=== PATIENT | female | born 1970 | race Caucasian/White ===

== ENCOUNTER 2016-11-08 12:06 | Emergency (ER) | payer OTHER | END 2016-11-08 13:20 | disposition home or self-care (01) | LOC: D.ER 12:06 | DX: K04.7 Periapical abscess without sinus (principal); K02.9 Dental caries, unspecified; E11.9 Type 2 diabetes mellitus without complications ==

== ENCOUNTER 2017-05-18 00:09 | Emergency (ER) | payer OTHER ==
[2017-05-18 01:16] LABS: BASOPHILS 0.5 % (0-2); EOSINOPHILS 2.3 % (0-7); HEMATOCRIT 48.2 % (36.0-48.0); HEMOGLOBIN 17.4 g/dL (12-16); IMMATURE GRANULOCYTES 1.7 % (0-5); LYMPHOCYTES 31.3 % (15-50); MCH 33.9 pg (26.0-34.0); MCHC 36.1 g/dL (31.0-37.0); MEAN PLATELET VOLUME 11.1 fL (7.4-10.4); NEUTROPHILS 57.2 % (40-80); PLATELET COUNT 179 10x3/uL (130-400); RBC 5.13 10x6/uL (4.00-5.40); RDW 13.1 % (11.5-14.5); WBC 8.3 10x3/uL (4.8-10.8)
[2017-05-18 01:25] LABS: APPEARANCE CLEAR (CLEAR); BILIRUBIN NEGATIVE (NEGATIVE); COLOR STRAW (YELLOW); GLUCOSE 1000 mg/dL (NEGATIVE); KETONE NEGATIVE (NEGATIVE); LEUKOCYTE ESTERASE NEGATIVE (NEGATIVE); NITRITE NEGATIVE (NEGATIVE); PROTEIN NEGATIVE (NEGATIVE); SPECIFIC GRAVITY 1.015 (1.005-1.020); UROBILINOGEN NORMAL (NORMAL)
[2017-05-18 01:26] LABS: BACTERIA FEW /hpf (NONE SEEN); EPITHELIAL CELLS 0-5 /hpf (0-5); RED CELLS - URINE 0-5 /hpf (0-5); WHITE CELLS - URINE NSEEN /hpf (0-5)
[2017-05-18 01:35] LABS: ALBUMIN 3.5 g/dL (3.4-5.0); ALKALINE PHOSPHATASE 103 U/L (46-116); ALT (SGPT) 20 U/L (10-68); BILIRUBIN - TOTAL 0.17 mg/dL (0.2-1.3); CALC OSMOLALITY 284 mosm/kg (275-300); CALCIUM 7.9 mg/dL (8.5-10.1); CARBON DIOXIDE 21.8 mmol/L (21.0-32.0); CHLORIDE - SERUM 99 mmol/L (98-107); CREATININE - SERUM 0.8 mg/dL (0.6-1.3); LIPASE 108 U/L (73-393); POTASSIUM - SERUM 5.2 mmol/L (3.5-5.1); PROTEIN - SERUM 7.1 g/dL (6.4-8.2); SODIUM 131 mmol/L (136-145); UREA NITROGEN 20 mg/dL (7-18); eGFR NON AFRICAN AMERICAN 81 mL/min (90-120)
[2017-05-18 01:41] LABS: GLUCOSE 432 mg/dL (74-106)
== END 2017-05-18 02:38 | disposition home or self-care (01) ==
LOC: D.ER 00:09
PROVIDERS: Emergency Medicine
DX: E11.65 Type 2 diabetes mellitus with hyperglycemia (principal); F17.200 Nicotine dependence, unspecified, uncomplicated

== ENCOUNTER → 2017-05-27 16:14 | Outpatient (CLI) | payer OTHER | END | disposition home or self-care (01) | LOC: D.MAMMO 11:45 | DX: Z12.31 Encounter for screening mammogram for malignant neoplasm of breast (principal) ==

== ENCOUNTER → 2017-06-25 18:49 | Outpatient (CLI) | payer OTHER ==
[~2017-06-25 18:49] MED LIST: BACLOFEN10 MG PO; CYMBALTA30 MG PO; FARXIGA10 MG PO; GLIPIZIDE-METFO1 TA5 PO; GLUCOVANCE 5/501 TAB PO; IBUPROFEN800 MG PO; NEURONTIN 400400 MG PO; PRAVACHOL20 MG PO; PRECOSE25 MG PO; PROBIOTIC1 EAC1 PO; ULTRAM50 MG PO
[2017-06-26 10:22] VITALS: BMI 27.4
== END | disposition home or self-care (01) ==
LOC: D.MAMMO 14:00
DX: R92.8 Other abnormal and inconclusive findings on diagnostic imaging of breast (principal)

== ENCOUNTER 2017-06-26 08:12 | Day surgery (SDC) | payer OTHER ==
[~2017-06-26] VITALS: Ht 172.7 cm; Wt 81.6 kg
--- NOTE | ~2017-06-26 | OP ---
PATIENT NAME: SEJAL CHAIREZ MEDICAL RECORD: [id number] :66 LOCATION:D.[facility] ADMISSION DATE: SURGEON: SHERICE MENDEZ MD DATE OF OPERATION: 06/26/2017 PREOPERATIVE DIAGNOSIS: Symptomatic sebaceous cyst of the back. POSTOPERATIVE DIAGNOSIS: Symptomatic subcutaneous lipoma of the back. SURGEON: Sherice Mendez MD. MANAGER ENGINE: None. BLOOD LOSS: Minimal. ANESTHESIA: General. COMPLICATIONS: None. I saw the patient in the holding area. The examination was performed in the presence of a female nurse. The risks, possible complications, and alternatives to the procedure were explained to the patient. She elected to proceed. OPERATIVE COURSE: The patient was conveyed to the operating room electively on 06/26/2017. General anesthesia was induced by the anesthesia staff. She was positioned prone. The back was sterilely prepped and draped. I incised through the middle of the subcutaneous mass. I identified lipomatous tissue rather than cystic tissue. Blunt dissection was performed around the lipoma and it was extracted in several pieces. Surrounding connective tissue was excised in a piecemeal fashion in order to prevent the lipoma from recurring. Meticulous hemostasis was achieved with the electrocautery. The lipoma was 6 cm in diameter. After meticulous hemostasis had been achieved, I irrigated with hydrogen peroxide. I then instilled Crys into the wound for additional hemostasis. The subdermis was approximated with interrupted 3-0 Vicryls. The skin was closed with a running intracuticular 4-0 Vicryl. Dermabond was then applied. The patient was then extubated and conveyed to the post-anesthesia care unit where she was in a stable condition. TRANSINT:[id number] Voice Confirmation ID: [id number] DOCUMENT ID: [id number] SHERICE MNEDEZ MD CC: JH BENDER DO [id number] DICTATION DATE: 06/26/17 1509 FIELD APPLICATION ENGINEER: 06/26/17 1942 [facility] 06/26/17 [id number] [place] [address]
[2017-06-26 09:08] LABS: HEMATOCRIT 52.9 % (36.0-48.0); HEMOGLOBIN 19.3 g/dL (12-16); MCH 34.3 pg (26.0-34.0); MCHC 36.5 g/dL (31.0-37.0); MCV 94.1 fL (80.0-100.0); MEAN PLATELET VOLUME 10.8 fL (7.4-10.4); RBC 5.62 10x6/uL (4.00-5.40); RDW 13.8 % (11.5-14.5)
[2017-06-26 09:27] LABS: CALC OSMOLALITY 278 mosm/kg (275-300); CALCIUM 8.9 mg/dL (8.5-10.1); CARBON DIOXIDE 26.5 mmol/L (21.0-32.0); CHLORIDE - SERUM 100 mmol/L (98-107); CREATININE - SERUM 0.8 mg/dL (0.6-1.3); GLUCOSE 220 mg/dL (74-106); POTASSIUM - SERUM 4.5 mmol/L (3.5-5.1); SODIUM 135 mmol/L (136-145); UREA NITROGEN 17 mg/dL (7-18); eGFR NON AFRICAN AMERICAN 81 mL/min (90-120)
[2017-06-26 10:22] VITALS: BP 142/72; Ht 172.7 cm; Wt 81.6 kg
[2017-06-26 10:38] LABS: HCG URINE NEGATIVE (NEGATIVE)
--- NOTE | 2017-06-26 17:20 | NUR ---
IV DC WITH CATHER TIP INTACT,W/O REDNESS
== END 2017-06-26 17:30 | disposition home or self-care (01) ==
LOC: D.OPS 08:12 → D.PAN 11:15 → D.OPS 13:00 → D.PAN 13:00 → D.OPS 17:30
PROVIDERS: Anesthesiology; Surgery
DX: D17.1 Benign lipomatous neoplasm of skin and subcutaneous tissue of trunk (principal); F17.200 Nicotine dependence, unspecified, uncomplicated; E11.9 Type 2 diabetes mellitus without complications; Z01.812 Encounter for preprocedural laboratory examination

== ENCOUNTER 2017-06-28 01:12 | Emergency (ER) | payer OTHER ==
[2017-06-26 10:22] VITALS: BMI 27.4
== END 2017-06-28 02:33 | disposition home or self-care (01) ==
LOC: D.ER 01:12
DX: R11.10 Vomiting, unspecified (principal); R51 Headache; E11.9 Type 2 diabetes mellitus without complications; F17.200 Nicotine dependence, unspecified, uncomplicated

== ENCOUNTER 2017-06-30 20:26 | Emergency (ER) | payer OTHER ==
[2017-06-26 10:22] VITALS: BMI 27.4
== END 2017-06-30 21:14 | disposition home or self-care (01) ==
LOC: D.ER 20:26
DX: K12.0 Recurrent oral aphthae (principal); E11.9 Type 2 diabetes mellitus without complications; F17.200 Nicotine dependence, unspecified, uncomplicated

== ENCOUNTER → 2017-07-28 09:10 | Outpatient (CLI) | payer OTHER ==
[2017-06-26 10:22] VITALS: BMI 27.4
== END | disposition home or self-care (01) ==
LOC: D.US 09:10
DX: R92.8 Other abnormal and inconclusive findings on diagnostic imaging of breast (principal)

== ENCOUNTER → 2017-09-30 16:10 | Outpatient (CLI) | payer OTHER ==
[2017-06-26 10:22] VITALS: BMI 27.4
== END | disposition home or self-care (01) ==
LOC: D.CT 16:10
DX: G43.019 Migraine without aura, intractable, without status migrainosus (principal); G44.59 Other complicated headache syndrome

== ENCOUNTER 2017-10-18 17:10 | Emergency (ER) | payer OTHER ==
[2017-06-26 10:22] VITALS: BMI 27.4
[2017-10-18 18:55] LABS: BASOPHILS 0.4 % (0-2); EOSINOPHILS 0 % (0-7); HEMATOCRIT 49.8 % (36.0-48.0); IMMATURE GRANULOCYTES 1.2 % (0-5); LYMPHOCYTES 12.9 % (15-50); MCH 31.9 pg (26.0-34.0); MCHC 34.1 g/dL (31.0-37.0); MCV 93.4 fL (80.0-100.0); MEAN PLATELET VOLUME 10.2 fL (7.4-10.4); MONOCYTES 10.2 % (2-11); NEUTROPHILS 75.3 % (40-80); PLATELET COUNT 122 10x3/uL (130-400); RBC 5.33 10x6/uL (4.00-5.40); RDW 13.6 % (11.5-14.5); WBC 5.1 10x3/uL (4.8-10.8)
[2017-10-18 19:13] LABS: ALBUMIN 3.2 g/dL (3.4-5.0); ALKALINE PHOSPHATASE 95 U/L (46-116); ALT (SGPT) 16 U/L (10-68); BILIRUBIN - TOTAL 0.18 mg/dL (0.2-1.3); CALC OSMOLALITY 272 mosm/kg (275-300); CALCIUM 8.9 mg/dL (8.5-10.1); CARBON DIOXIDE 27.1 mmol/L (21.0-32.0); CHLORIDE - SERUM 100 mmol/L (98-107); CREATININE - SERUM 0.7 mg/dL (0.6-1.3); POTASSIUM - SERUM 4.3 mmol/L (3.5-5.1); SODIUM 135 mmol/L (136-145); UREA NITROGEN 11 mg/dL (7-18); eGFR NON AFRICAN AMERICAN > 90 mL/min (90-120)
[2017-10-18 19:17] LABS: GLUCOSE 165 mg/dL (74-106)
== END 2017-10-18 19:46 | disposition home or self-care (01) ==
LOC: D.ER 17:10
PROVIDERS: Emergency Medicine
DX: J11.1 Influenza due to unidentified influenza virus with other respiratory manifestations (principal); E11.9 Type 2 diabetes mellitus without complications; F17.200 Nicotine dependence, unspecified, uncomplicated

== ENCOUNTER → 2017-12-08 15:36 | Outpatient (CLI) | payer OTHER ==
[2017-06-26 10:22] VITALS: BMI 27.4
== END | disposition home or self-care (01) ==
LOC: D.US 12-07 16:00
DX: I73.89 Other specified peripheral vascular diseases (principal)

== ENCOUNTER → 2018-11-01 13:29 | Outpatient (CLI) | payer OTHER ==
[2017-06-26 10:22] VITALS: BMI 27.4
== END | disposition home or self-care (01) ==
LOC: D.CT 13:29
DX: R93.89 Abnormal findings on diagnostic imaging of other specified body structures (principal)

== ENCOUNTER 2018-12-23 22:16 | Inpatient (IN) | payer OTHER ==
[~2018-12-23] VITALS: Ht 172.7 cm; Wt 95.5 kg
--- NOTE | ~2018-12-23 | HEMODYNAMI ---
PATIENT:SEJAL CHAIREZ MEDICAL RECORD: [id number] : 66 LOCATION:[facility] D.2217 ADMISSION DATE: 12/24/18 Generatedon:12/27/20189:43 Patient name: SEJAL CHAIREZ Patient #: [id number] SSN: : 1970 Date of study: 12/27/2018 Page: Of Hemodynamic Procedure Report Patient Data Patient Demographics Procedure consent was obtained First Name: SEJAL Gender: Female Last Name: MIHAELA : 1970 Middle Initial: K Age: 48 year(s) Patient #: [id number] Race: Unknown Additional ID: [id number] Contact details [address]: [address] [place] [address] State: [place] City: [place] Zip code: [address] Admission Admission Data Admission Date: 12/24/2018 Admission Time: 0:25 Room #: D.2217 Procedure Procedure Types Cath Procedure Diagnostic Procedure LHC LH w/Coronaries Sedation Charges Moderate Sedation up to 15 minutes PCI Procedure Coronary Stent Coronary Stent Initial Procedure Description Procedure Date Procedure Date: 12/27/2018 Procedure Start Time: 9:23 Procedure End Time: 9:39 Procedure Staff Name Function Cedrick Hughes MD Performing Physician Julieth Bowman RT Monitor Marleni Camargo RT Scrub Kolby Moffett RN Nurse Procedure Data Cath Procedure Fluoroscopy Diagnostic fluoroscopy Total fluoroscopy Time: 3.8 time: 3.8 min min Diagnostic fluoroscopy Total fluoroscopy dose: 967 dose: 967 mGy mGy Contrast Material Contrast Material Type Amount (ml) Isovue 300 115 Entry Location Entry Primary Successful Side Size Upsize Upsize Entry Closure Grover ccessful Closure Location (Fr) 1 (Fr) 2 (Fr) Remarks Device Remarks Radial Right 6 Fr Mechanical artery Short Compression Estimated blood loss: 5 ml Diagnostic catheters Device Type Used For End Catheter Placement DIAGNOSTIC Walland 110cm 5 Multi-vessel Fr catheter ([id number]) Angiography Procedure Complications No complications Procedure Medications Medication Administration Route Dosage 0.9% NaCl 100 ml/hr Oxygen etCO2 Nasal cannula 2 l/min Heparin Flush Bag added to field 2 bags (1000units/500ml NS) Lidocaine 2% added to field 20 Radial Cocktail added to field 1 syringe (Verapomil 2mg/Nitro 400mcg/Heparin 1500units) Versed I.V. 0.5 mg Fentanyl I.V. 25 mcg Versed I.V. 0.5 mg Fentanyl I.V. 25 mcg Heparin Bolus I.V. 5000 units Integrilin (Bolus I.V. 8.5 ml 2mg/ml) Integrilin (Bolus wasted 1.5 ml 2mg/ml) Radial Cocktail I.A. 1 syringe (Verapomil 2mg/Nitro 400mcg/Heparin 1500units) Plavix P.O. 600 mg Hemodynamics Rest Heart Rate: 90 (bpm) Pressure Samples Time Site Value (mmHg) Purpose Heart Use Rate(bpm) 9:26 LV 107/6,17 Snapshot 72 Gradients Valve Time Site Site Mean SEP/DFP Peak To Heart Use 1 2 (mmHg) (sec/min) Peak Rate (mmHg) (bpm) Aortic 9:26 LV AO 73 Snapshots Pre Cath Intra NCS Post Cath Vital Signs Time Heart Resp SPO2 etCO2 NIBP (mmHg) Rhythm Pain Sedation Rate (ipm) (%) (mmHg) Status Level (bpm) 9:11:55 90 19 96 43.3 137/81(109) NSR 0 (11) 10(A) , No pain 9:16:07 74 11 94 43.3 137/75(105) NSR 0 (11) 10(A) , No pain 9:20:19 69 14 93 41.8 124/70(93) NSR 0 (11) 10(A) , No pain 9:24:29 71 11 93 41.8 124/67(94) NSR 0 (11) 9(A) , No pain 9:28:39 79 11 93 43.3 115/64(80) NSR 0 (11) 9(A) , No pain 9:32:46 80 11 91 42.6 109/65(87) NSR 0 (11) 9(A) , No pain 9:36:52 85 11 93 41 89/60(73) NSR 0 (11) 10(A) , No pain Medications Time Medication Route Dose Verified Delivered Reason Note s Effectiveness by by 9:14:05 0.9% NaCl 100 Kolby Kolby Per physician ml/hr Betina Moffett RN RN 9:14:14 Oxygen etCO2 2 l/min Kolby Kolby for low 02 sats Nasal Betina Moffett cannula RN RN 9:14:24 Heparin Flush added 2 bags Kolby Kolby used for Bag to Lorigan Loryuan procedure (1000units/500ml field RN RN NS) 9:14:33 Lidocaine 2% added 20ml Kolby Kolby for local to vial Lorigan Loryuan anesthetic field RN RN 9:14:44 Radial Cocktail added 1 Kolby Kolby used for (Verapomil to syringe Lorigan Lorigan procedure 2mg/Nitro field RN RN 400mcg/Heparin 1500units) 9:15:00 Versed I.V. 0.5 mg Kolby Kolby for sedation Betina Moffett RN RN 9:15:08 Fentanyl I.V. 25 mcg Kolby Kolby for sedation Betina Moffett RN RN 9:23:10 Versed I.V. 0.5 mg Kolby Kolby for sedation Betina Moffett RN RN 9:23:15 Fentanyl I.V. 25 mcg Kolby Kolby for sedation Betina Moffett RN RN 9:25:11 Radial Cocktail I.A. 1 Kolby Cedrick for (Verapomil syringe Lorigan Ellen vasodilation 2mg/Nitro RN 400mcg/Heparin 1500units) 9:34:11 Heparin Bolus I.V. 5000 Kolby Kolby for units Betina Moffett anticoagulation RN RN 9:34:29 Integrilin I.V. 8.5 ml Kolby Kolby for (Bolus 2mg/ml) Betina Moffett antiplatelet RN RN therapy 9:34:42 Integrilin wasted 1.5 ml Kolby Kolby to sharp's (Bolus 2mg/ml) Betina Moffett RN RN 9:39:50 Plavix P.O. 600 mg Kolby Kolby for Betina Moffett antiplatelet RN RN therapy Procedure Log Time Note 8:36:38 Informed consent obtained and on chart 8:36:44 Diagnostic Cath Status : Elective 8:37:37 Kolby Moffett RN sent for patient. Start room use. 8:37:38 Time tracking: Regular hours (M-F 7:00 - 5:00) 8:37:43 Plan of Care:Hemodynamics will remain stable., Cardiac rhythm will remain stable., Comfort level will be maintained., Respiratory function will remain adequate., Patient/ family verbilizes understanding of procedure., Procedure tolerated without complication., Recovers from procedure without complications.. 9:10:46 Patient received from Med/Surg to CCL 2 Alert and oriented. Tansferred to table in Supine position. 9:10:47 Warm blankets applied, and jose hugger turned on for patient comfort. 9:10:47 Correct patient and procedure confirmed by team. 9:10:48 ECG and BP/O2 sat monitors applied to patient. 9:10:50 Vital chart was started 9:10:52 Baseline sample Acquired. 9:10:56 Rhythm: sinus rhythm 9:10:58 Full Disclosure recording started 9:11:01 H&P Date Dictated: 12/27/2018 New H&P dictated by physician.. 9:11:02 Pre-procedure instructions explained to patient. 9:11:03 Pre-op teaching completed and patient verbalized understanding. 9:11:04 Family in waiting room. 9:11:05 Patient NPO since Midnight. 9:11:10 Is the patient allergic to Iodine/contrast media? No. 9:11:11 Was the patient premedicated? No 9:12:36 Is patient on blood thinner?No 9:12:37 Patient diabetic? Yes. 9:12:38 If diabetic: On Metformin? No 9:12:41 Previous problem with sedation/anesthesia? No ? 9:12:42 Snore? No 9:12:43 Sleep apnea? No 9:12:44 Deviated septum? No 9:12:45 Opens mouth fully? Yes 9:12:46 Sticks out tongue? Yes 9:12:50 Airway obstruction? Yes asthma 9:12:52 Dentures? No ? 9:13:01 Pre procedure: right dorsailis pedis pulse 2+ Normal; easily identifiable; not easily obliterated 9:13:04 Pre procedure: left dorsailis pedis pulse 2+ Normal; easily identifiable; not easily obliterated 9:13:08 Patient pain scale 0/10 ?. 9:13:10 Modified Blaine's test Radial < 7 seconds 9:13:18 IV patent on arrival in left forearm with 0.9% NaCl at KVO. 9:13:21 Lab results completed and on chart. 9:13:25 Right Radial & Right Groin area was prepped with chlora-prep and draped in sterile fashion 9:13: Alarms reviewed by Denana N. :: Sharps counted by scrub and verified by R.N. 9:13:28 Physician arrived 9:13:28 --------ALL STOP TIME OUT------ 9:13:31 Final Timeout: patient, procedure, and site verified with staff and physician. All members of the team are in agreement. 9:13:32 Right Radial & Right Groin site verified by team. 9:13:38 Fire Safety Assessment: A--An alcohol-based skin anteseptic being used preoperatively., B--The operative or invasive procedure is being performed above the xiphoid process or in the oropharynx., C--Open oxygen or nitrous oxide is being used., D--An ESU, laser, or fiber-optic light is being used., E--There are other possible contributors. 9:13:42 Physical assessment completed. ASA score P 2 - A patient with mild systemic disease as per Cedrick Hughes MD. 9:13:45 Sedation plan: IV Moderate Sedation Medication:Versed, Fentanyl 9:13:49 Use device set Radial Dx or PCI 9:13:50 ACIST Syringe (59155) opened to sterile field. 9:13:51 Medline Cath Pack ([id number]) opened to sterile field. 9:13:51 Bag Decanter (2002) opened to sterile field. 9:13:52 DIAGNOSTIC WIRE .035 260cm J wire (591110) opened to sterile field. 9:13:52 ACIST Hand Control (22070) opened to sterile field. 9:13:52 ACIST Manifold (93387) opened to sterile field. 9:13:53 Tegaderm 4 x 4 (1626W) opened to sterile field. 9:13:53 MBrace Wrist Support (313693216) opened to sterile field. 9:13:54 SHEATH 6FR Slender (74-7970) opened to sterile field. 9:14:05 0.9% NaCl 100 ml/hr was administered by Kolby Moffett RN; Per physician; 9:14:14 Oxygen 2 l/min etCO2 Nasal cannula was administered by Kolby Lorigan RN; for low 02 sats; 9:14:24 Heparin Flush Bag (1000units/500ml NS) 2 bags added to field was administered by Kolby Moffett RN; used for procedure; 9::33 Lidocaine 2% 20ml vial added to field was administered by Kolby Moffett RN; for local anesthetic; 9:14:44 Radial Cocktail (Verapomil 2mg/Nitro 400mcg/Heparin 1500units) 1 syringe added to field was administered by Kolby Moffett RN; used for procedure; 9:15:00 Versed 0.5 mg I.V. was administered by Kolby Moffett RN; for sedation; 9:15:08 Fentanyl 25 mcg I.V. was administered by Kolby Moffett RN; for sedation; 9:21:41 Procedure started. 9:23:03 Local anesthetic to right radial artery with Lidocaine 2% by Cedrick Hughes MD.INITIAL ACCESS ONLY 9:23:10 Versed 0.5 mg I.V. was administered by Kolby Moffett RN; for sedation; 9:23:15 Fentanyl 25 mcg I.V. was administered by Kolby Moffett RN; for sedation; 9:25:11 Radial Cocktail (Verapomil 2mg/Nitro 400mcg/Heparin 1500units) 1 syringe I.A. was administered by Cedrick Hguhes MD; for vasodilation; 9:25:32 A 6 Fr Short sheath was inserted into the Right Radial artery 9:25:39 A DIAGNOSTIC Walland 110cm 5 Fr catheter ([id number]) was advanced over the wire and used for Multi-vessel Angiography. 9:26:22 LV hemodynamics recorded. 9:26:24 LV gram done using CHILDERS 9::26 Injector settings: Ml/sec: 5, Volume: 15, 9:26:47 EF : 40 % 9:27:19 LCA angiography performed. 9:27:21 Injector settings: Ml/sec: 3, Volume: 6, 9:28:43 RCA angiography performed. 9:28:46 Injector settings: Ml/sec: 3, Volume: 6, 9:29:14 Catheter removed. 9:29:16 Proceeding to intervention. 9:29:32 INFLATOR Merit BasixCompak (VS2996) opened to sterile field. 9:29:33 WHISPER 300cm guide wire ([id number]) opened to sterile field. 9:30:43 GUIDE 6FR EBU 3.0 catheter ([id number]) opened to sterile field. 9:31:47 6 Fr ebu 3 guide catheter was inserted over the wire 9:32:33 whisper wire advanced. 9:34:11 Heparin Bolus 5000 units I.V. was administered by Kolby Moffett RN; for anticoagulation; 9:34:29 Integrilin (Bolus 2mg/ml) 8.5 ml I.V. was administered by Kolby Moffett RN; for antiplatelet therapy; 9:34:42 Integrilin (Bolus 2mg/ml) 1.5 ml wasted was administered by Kolby Moffett RN; to sharp's; 9:36:31 Place stent Inflation Number: 1 A KAYLIN OTW 3.0 x 22 stent ([id number]) was prepped and advanced across the Prox LAD. The stent was deployed at 14 SOL for 0:30 (min:sec). 9:36:54 Stent catheter was removed intact over wire. 9:36:54 Wire removed. 9:36:55 Guide catheter removed. 9:37:04 TR BAND Standard ([id number]) opened to sterile field. 9:37:14 Sheath removed intact; hemostasis achieved with Mechanical Compression to the Right Radial artery. 9:37:16 Procedure ended.(Physican Out) 9:37:24 Fluoroscopy time 03.80 minutes. 9:37:29 Flurop Dose total: 967 9:37:29 Fluoroscopy dose: 967 mGy 9:37:58 Contrast amount:Isovue 300 115ml. 9:37:59 Sharps counted by scrub and verified by R.N. 9:38:01 TR band inflated with 10cc of air. 9:38:02 Insertion/operative site no bleeding no hematoma. 9:38:06 Post right radial artery:stable 9:38:08 Post Procedure Pulses reassessed and unchanged 9:38:10 Post procedure rhythm: unchanged. 9:38:13 Estimated blood loss: 5 ml 9:38:14 Post procedure instruction explained to patient.Patient verbalizes understanding. 9:38:14 Patient needs reinforcement of post procedure teaching. 9:38:32 Procedure type changed to Cath procedure, Diagnostic procedure, LHC, LH w/Coronaries, Sedation Charges, Moderate Sedation up to 15 minutes, PCI procedure, Coronary Stent, Coronary Stent Initial 9:38:33 Procedure and supply charges have been captured, reviewed, submitted and are correct. 9:38:37 Procedure Complication : No complications 9:38:39 Vital chart was stopped 9:38:39 See physician's report for complete and final results. 9:39:[address] [facility]. 9:39:[address] [facility] with Stretcher. 9:39:08 Procedure ended. 9:39:08 Full Disclosure recording stopped 9:39:28 ACC-PCI Only Patient was given prescriptions, or instructed by Cedrick Hughes MD to start/continue the following medications upon discharge: Plavix 9:39:29 End room use (Document Last) 9:39:50 Plavix 600 mg P.O. was administered by Kolby Moffett RN; for antiplatelet therapy; Intervention Summary Intervention Notes Time ActionType Lesion and Equipment Action# Pressure Duration Attributes Used 9:36:31 Place stent Prox LAD KAYLIN OTW 3.0 1 14 00:30 x 22 stent ([id number]) Device Usage Item Name Manufacture Quantity Catalog Hospital Part Current Mini mal Lot# / Number Charge Number Stock Stock Serial# Code ACIST Syringe Acist 1 21594 744105 111069 568649 20 (12436) Medical Systems Inc Medline Cath Medline 1 [id number] 350569 37032 580712 5 Pack ([id number]) Bag Decanter Microtek 1 2001S 919714 45876 198774 5 (2001S) Medical Inc. DIAGNOSTIC [facility] Rodolfo 1 829240 339994 383759 530605 30 WIRE .035 260cm J wire (443638) ACIST Hand Acist 1 92422 125163 301576 132193 5 Control Medical (83973) Systems Inc ACIST Acist 1 11325 237545 319929 272705 5 Manifold Medical (43946) Systems Inc Tegaderm 4 x 3M 1 1626W 264141 144282 547910 5 4 (1626W) MBrace Wrist Advanced 1 140-0250-00 402632 64899 477791 5 Support Vascular ([id number]) Dynamics SHEATH 6FR Terumo 1 [id number] 528676 402178 342908 5 Slender (80-1060) DIAGNOSTIC Terumo 1 40-5013 696126 175057 570961 5 Walland 110cm 5 Fr catheter (196281) INFLATOR [facility] 1 SB2350 743222 164157 724490 15 [facility] Medical BasixCompak (RO4489) WHISPER 300cm [place] 1 [id number] 079403 987650 188152 5 guide wire Vascular (8353889MW) GUIDE 6FR EBU Medtronic 1 [id number] 405879 74992 399148 0 3.0 catheter ([id number]) KAYLIN OTW 3.0 Medtronic 1 [id number] 489761 5683397 967600 5 [id number] x 22 stent ([id number]) TR BAND Terumo 1 [id number] 817757 226813 502045 40 Standard ([id number]) Signature Audit [place] Stage Time Signature Unsigned Intra-Procedure 12/27/2018 Julieth Bowman 9:43:08 AM RT(R) Signatures Monitor : Julieth Bowman RT Signature : Date : Time : [id number] [place] [address]
[2018-12-23 22:32] VITALS: BP 143/83
[2018-12-23 22:33] LABS: BASOPHILS 0.2 % (0-2); EOSINOPHILS 0.3 % (0-7); HEMATOCRIT 46.9 % (36.0-48.0); HEMOGLOBIN 16.4 g/dL (12-16); IMMATURE GRANULOCYTES 0.2 % (0-5); LYMPHOCYTES 14.8 % (15-50); MCV 94.4 fL (80.0-100.0); MEAN PLATELET VOLUME 11.2 fL (7.4-10.4); MONOCYTES 5.2 % (2-11); NEUTROPHILS 79.3 % (40-80); PLATELET COUNT 138 10x3/uL (130-400); RBC 4.97 10x6/uL (4.00-5.40); RDW 14.3 % (11.5-14.5); WBC 12.4 10x3/uL (4.8-10.8)
[2018-12-23 22:41] LABS: APTT 28.6 SECONDS (22.8-39.4); INR 1.15 (0.85-1.17); PROTIME 14.2 SECONDS (11.6-15.0)
[2018-12-23 22:56] LABS: ALBUMIN 3.1 g/dL (3.4-5.0); ALKALINE PHOSPHATASE 86 U/L (46-116); ALT (SGPT) 22 U/L (10-68); BILIRUBIN - TOTAL 0.74 mg/dL (0.2-1.3); CALC OSMOLALITY 278 mosm/kg (275-300); CALCIUM 8.1 mg/dL (8.5-10.1); CARBON DIOXIDE 24.6 mmol/L (21.0-32.0); CHLORIDE - SERUM 102 mmol/L (98-107); CREATININE - SERUM 0.7 mg/dL (0.6-1.3); GLUCOSE 157 mg/dL (74-106); POTASSIUM - SERUM 3.9 mmol/L (3.5-5.1); SODIUM 138 mmol/L (136-145); UREA NITROGEN 13 mg/dL (7-18); eGFR NON AFRICAN AMERICAN > 90 mL/min (90-120)
[2018-12-23 23:00] VITALS: BP 144/80
[2018-12-23 23:07] LABS: CKMB 0.9 U/L (0.0-3.6); CREATINE KINASE 55 UL (21-215); MAGNESIUM - SERUM 1.9 mg/dL (1.8-2.4); TROPONIN-I < 0.017 ng/mL (0.000-0.060)
[2018-12-23 23:30] VITALS: BP 138/78
[2018-12-24] VITALS (9 sets, daily range): BP systolic 96–131; BP diastolic 52–67; Ht 172.7 cm; Wt 95.5 kg
[2018-12-24] MEDS ORDERED: TRULICITY0.75 MG/0. SC (01:07)
[2018-12-24] MEDS ORDERED: TAMOXIFEN CITRA20 MG PO (01:08)
[2018-12-24] MEDS ORDERED: VITAMIN D250000 UNIT PO (01:10)
--- NOTE | 2018-12-24 01:15 | NUR ---
RECIEVED TO ROOM VIA JESÚSCHER FROM ER. ALERT,ORIENTED. O2 @8L VIA HIGHFLOW ON. SPO2 @ 93 &. RESP UNLABORED. ORIENETED TO ROOM. FAMILY AT BEDSIDE.
--- NOTE | 2018-12-24 07:40 | NUR ---
PATIENT RESTING IN BED WITH NO NEEDS VOICED, RESPIRATIONS NONLABORED, DYSPNEA ON EXERTION. 02 8L HIGH FLOW. BREATH SOUNDS DEMINISHED. PATIENT DENIES ANY NEEDS AT THIS TIME. CL IN REACH
--- NOTE | 2018-12-24 11:51 | MORECARE ---
CASE MANAGEMENT DISCHARGE SUMMARY PATIENT: SEJAL CHAIREZ K UNIT: [id number] ADM DATE: 12/24/18 AGE: 48 : 66 SEX: F ROOM/BED: D.2217 AUTHOR: ANA FARAH PHYSICIAN: REFERRING PHYSICIAN: DASHA MILLS MD DATE OF SERVICE: 12/24/18 Discharge Plan Patient Name: SEJAL CHAIREZ Facility: [facility]:[place] : 1970 Planned Disposition: Home Anticipated Discharge Date: Discharge Date: Expected LOS: Initial Reviewer: [email or web address] Initial Review Date: 12/24/2018 Generated: 12/24/18 12:51 pm DCPIA - Discharge Planning Initial Assessment Updated by [email or web address]: Inessa Juarez on 12/24/18 11:50 am * Is the patient Alert and Oriented? Yes * How many steps to enter\exit or inside your home? * PCP Nikhil * [facility] * Preadmission Environment Home with Family * ADLs Independent * Equipment Cane Nebulizer * List name and contact numbers for known caregivers / representatives who currently or will assist patient after discharge: renu tristan [phone] * Verbal permission to speak to the caregivers and representatives has been obtained from the patient. N/A * Community resources currently utilized None * Additional services required to return to the preadmission environment? No * Can the patient safely return to the preadmission environment? Yes * Has this patient been hospitalized within the prior 30 days at any hospital? No Patient Name: SEJAL CHAIREZ Page 58441 at 1151 All edits/amendments must be made on the electronic document DICTATION DATE: 12/24/18 1151 JERKER: [email or web address] 12/24/18 1151 RPT#: [id number] DC DATE: STATUS: ADM IN [facility] [address] [place] [address] END OF REPORT
--- NOTE | 2018-12-24 11:59 | MORECARE ---
CASE MANAGEMENT DISCHARGE SUMMARY PATIENT: SEJAL CHAIREZ UNIT: [id number] ADM DATE: 12/24/18 AGE: 48 : 66 SEX: F ROOM/BED: D.2217 AUTHOR: SOFI,DOC PHYSICIAN: REFERRING PHYSICIAN: DASHA MILLS MD DATE OF SERVICE: 12/24/18 Discharge Plan Patient Name: SEJAL CHAIREZ Facility: [facility]:[place] : 1970 Planned Disposition: Home Anticipated Discharge Date: Discharge Date: Expected LOS: Initial Reviewer: [email or web address] Initial Review Date: 12/24/2018 Generated: 12/24/18 12:59 pm Comments DCP- Discharge Planning Updated by [email or web address]: nIessa Juarez on 12/24/18 10:[address] Patient Name: SEJAL CHAIREZ Admission Status: ER Accout number: [id number] Admission Date: 12-24-2018 : 1970 Admission Diagnosis: Attending: DASHA MILLS Current LOS: 1 Anticipated DC Date: Planned Disposition: Home Primary Insurance: [employer] MA[employer]GED MEDICAID Discharge Planning Comments: CM met with patient to complete initial dc planning assessment. CM educated patient on the CM role and verbal consent given by patient to complete assessment. Patient lives at home with her children. At discharge patient plans to return home and feels this is a safe discharge. CM discussed availability of home health, rehab services, and medical equipment. The patient has a cane and a nebulizer at home. Patient denied known discharge needs at this time. She may need home O2, when closer to discharge will need to have a walk test to see if she qualifies. CM will continue to follow and will assist as needed with dc plans/needs. Biomedical Equipment Specialist: Inessa Juarez DCPIA - Discharge Planning Initial Assessment Updated by [email or web address]: Inessa Juarez on 12/24/18 11:50 am * Is the patient Alert and Oriented? Yes * How many steps to enter\exit or inside your home? * PCP Nikhil * [facility] * Preadmission Environment Home with Family * ADLs Independent * Equipment Cane Nebulizer * List name and contact numbers for known caregivers / representatives who currently or will assist patient after discharge: renu tristan [phone] * Verbal permission to speak to the caregivers and representatives has been obtained from the patient. N/A * Community resources currently utilized None * Additional services required to return to the preadmission environment? No * Can the patient safely return to the preadmission environment? Yes * Has this patient been hospitalized within the prior 30 days at any hospital? No Last DP export: 12/24/18 10:51 am Patient Name: SEJAL CHAIREZ Page 15900 at 1159 All edits/amendments must be made on the electronic document DICTATION DATE: 12/24/18 1159 CLAIMS INVESTIGATOR: FLAKITA 12/24/18 1159 RPT#: [id number] DC DATE: STATUS: ADM IN [facility] [address] [place] [address] END OF REPORT
[2018-12-24 13:08] LABS: BASOPHILS 0 % (0-2); EOSINOPHILS 0 % (0-7); HEMATOCRIT 42.4 % (36.0-48.0); HEMOGLOBIN 14.7 g/dL (12-16); IMMATURE GRANULOCYTES 0.4 % (0-5); LYMPHOCYTES 9.5 % (15-50); MCH 32.5 pg (26.0-34.0); MCHC 34.7 g/dL (31.0-37.0); MCV 93.6 fL (80.0-100.0); MEAN PLATELET VOLUME 11.6 fL (7.4-10.4); MONOCYTES 2.4 % (2-11); NEUTROPHILS 87.7 % (40-80); PLATELET COUNT 123 10x3/uL (130-400); RBC 4.53 10x6/uL (4.00-5.40); RDW 14.3 % (11.5-14.5)
[2018-12-24 13:13] LABS: WBC 8.4 10x3/uL (4.8-10.8)
[2018-12-24 13:28] LABS: CALC OSMOLALITY 292 mosm/kg (275-300); CALCIUM 7.9 mg/dL (8.5-10.1); CARBON DIOXIDE 24.6 mmol/L (21.0-32.0); CHLORIDE - SERUM 102 mmol/L (98-107); CREATININE - SERUM 0.7 mg/dL (0.6-1.3); POTASSIUM - SERUM 4.1 mmol/L (3.5-5.1); SODIUM 137 mmol/L (136-145); UREA NITROGEN 13 mg/dL (7-18); eGFR NON AFRICAN AMERICAN > 90 mL/min (90-120)
[2018-12-24 13:41] LABS: GLUCOSE 443 mg/dL (74-106); TROPONIN-I 0.017 ng/mL (0.000-0.060)
--- NOTE | 2018-12-24 13:52 | NUR ---
RECIEVED CALL FROM LAB OF CRITICAL GLUCOSE OF 443, 16 UNITS OF INSULIN GIVEN JUST PRIOR TO LAB DRAW. WILL CONT TO MONITOR
[2018-12-24 16:47] LABS: APPEARANCE CLEAR (CLEAR); BILIRUBIN NEGATIVE (NEGATIVE); COLOR STRAW (YELLOW); GLUCOSE 1000 mg/dL (NEGATIVE); KETONE NEGATIVE (NEGATIVE); NITRITE NEGATIVE (NEGATIVE); PROTEIN NEGATIVE (NEGATIVE); UROBILINOGEN NORMAL (NORMAL)
[2018-12-24 19:11] LABS: CKMB 1.1 U/L (0.0-3.6); CREATINE KINASE 59 UL (21-215); TROPONIN-I 0.017 ng/mL (0.000-0.060)
[2018-12-24] MEDS ORDERED: SINGULAIR10 MG PO (20:48)
--- NOTE | 2018-12-24 21:57 | NUR ---
PT C/O LEFT NECK PAIN 05/04. GAVE MORPHINE 4 MG AND SCHEDULED MEDS. FSBS 390 - TREATED WITH 16 UNITS INSULIN PER SS. TELEMETRY RUNNING SR. COMPLETE ASSESSMENT PER FLOW-SHEET. NO OTHER NEEDS. WILL CONTINUE TO MONITOR.
[2018-12-25] VITALS: BP 94/43
[2018-12-25 00:03] LABS: CKMB 0.9 U/L (0.0-3.6); CREATINE KINASE 46 UL (21-215); TROPONIN-I < 0.017 ng/mL (0.000-0.060)
[2018-12-25 04:00] VITALS: BP 106/53
[2018-12-25 05:55] LABS: BASOPHILS 0 % (0-2); EOSINOPHILS 0 % (0-7); HEMATOCRIT 40.1 % (36.0-48.0); HEMOGLOBIN 13.3 g/dL (12-16); IMMATURE GRANULOCYTES 0.3 % (0-5); LYMPHOCYTES 7.3 % (15-50); MCH 31.7 pg (26.0-34.0); MCHC 33.2 g/dL (31.0-37.0); MCV 95.5 fL (80.0-100.0); MEAN PLATELET VOLUME 11.6 fL (7.4-10.4); MONOCYTES 3.8 % (2-11); NEUTROPHILS 88.6 % (40-80); PLATELET COUNT 110 10x3/uL (130-400); RDW 14.5 % (11.5-14.5); WBC 9.2 10x3/uL (4.8-10.8)
[2018-12-25 06:31] LABS: CHLORIDE - SERUM 103 mmol/L (98-107); POTASSIUM - SERUM 4.6 mmol/L (3.5-5.1); SODIUM 137 mmol/L (136-145)
[2018-12-25 06:34] LABS: CALCIUM 7.8 mg/dL (8.5-10.1); CARBON DIOXIDE 25.8 mmol/L (21.0-32.0); CREATININE - SERUM 0.7 mg/dL (0.6-1.3); eGFR NON AFRICAN AMERICAN > 90 mL/min (90-120)
[2018-12-25 06:42] LABS: UREA NITROGEN 20 mg/dL (7-18)
[2018-12-25 07:26] LABS: CALC OSMOLALITY 298 mosm/kg (275-300)
[2018-12-25 07:29] LABS: GLUCOSE 489 mg/dL (74-106)
--- NOTE | 2018-12-25 07:31 | NUR ---
RECEIVED CALL FROM KANA IN LAB, STATED PT GLUCOSE IS 489, PER PM RN Aston DOSHI PT GLUCOSE WAS 404 NAND COVERED, WILL RECHECK IN 30MINS
[2018-12-25 08:22] VITALS: BP 115/58
[2018-12-25 13:37] LABS: CKMB 1.2 U/L (0.0-3.6); CREATINE KINASE 44 UL (21-215); TROPONIN-I < 0.017 ng/mL (0.000-0.060)
[2018-12-25 13:59] VITALS: BP 121/64
--- NOTE | 2018-12-25 14:31 | NUR ---
PT REUESTED PAIN MEDICATION, STATED PAIN IS AT A 8, ADMINISTERED PRN PAIN MEDICATION. NO OTHER NEEDS VOICED, CONTINUE WITH PLAN OF CARE
[2018-12-25 17:13] VITALS: BP 155/73
--- NOTE | 2018-12-25 19:52 | NUR ---
PT C/O BACK PAIN 07/05. GAVE MORPHINE 4 MG IV PUSH. GAVE SCHEDULED MEDS. FSBS 288 - TREATED WITH 16 UNITS PER SS. PT STATES SHE WANTS LASIX SHE "MISSED GETTING" EARLIER. SHOWS "NOT GIVEN" ON EMAR. GAVE LASIX REQUESTED. NO OTHER NEEDS. WILL CONTINUE TO MONITOR.
[2018-12-25 19:54] VITALS: BP 137/69
[2018-12-26] VITALS: BP 146/70
[2018-12-26 03:58] VITALS: BP 127/64
[2018-12-26 06:29] LABS: BASOPHILS 0 % (0-2); EOSINOPHILS 0 % (0-7); HEMATOCRIT 40.5 % (36.0-48.0); HEMOGLOBIN 13.6 g/dL (12-16); IMMATURE GRANULOCYTES 0.3 % (0-5); LYMPHOCYTES 10.6 % (15-50); MCH 32.1 pg (26.0-34.0); MCHC 33.6 g/dL (31.0-37.0); MCV 95.5 fL (80.0-100.0); MEAN PLATELET VOLUME 11.1 fL (7.4-10.4); NEUTROPHILS 85.1 % (40-80); PLATELET COUNT 111 10x3/uL (130-400); RBC 4.24 10x6/uL (4.00-5.40); RDW 14.6 % (11.5-14.5); WBC 8.7 10x3/uL (4.8-10.8)
[2018-12-26 07:16] LABS: CALC OSMOLALITY 297 mosm/kg (275-300); CALCIUM 8.4 mg/dL (8.5-10.1); CARBON DIOXIDE 26.3 mmol/L (21.0-32.0); CHLORIDE - SERUM 103 mmol/L (98-107); CREATININE - SERUM 0.8 mg/dL (0.6-1.3); POTASSIUM - SERUM 4.7 mmol/L (3.5-5.1); SODIUM 138 mmol/L (136-145); UREA NITROGEN 18 mg/dL (7-18); eGFR NON AFRICAN AMERICAN 80 mL/min (90-120)
[2018-12-26 07:19] LABS: GLUCOSE 450 mg/dL (74-106)
[2018-12-26 08:42] VITALS: BP 157/98
[2018-12-26 13:07] VITALS: BP 174/76
[2018-12-26 18:17] VITALS: BP 179/79
[2018-12-26 21:04] VITALS: BP 186/79
[2018-12-27 00:11] VITALS: BP 173/74
[2018-12-27 04:36] VITALS: BP 164/80
[2018-12-27 05:49] LABS: BASOPHILS 0 % (0-2); EOSINOPHILS 0 % (0-7); HEMATOCRIT 44.2 % (36.0-48.0); HEMOGLOBIN 14.8 g/dL (12-16); IMMATURE GRANULOCYTES 0.5 % (0-5); LYMPHOCYTES 11.9 % (15-50); MCHC 33.5 g/dL (31.0-37.0); MCV 95.5 fL (80.0-100.0); MEAN PLATELET VOLUME 11.2 fL (7.4-10.4); NEUTROPHILS 83.6 % (40-80); PLATELET COUNT 129 10x3/uL (130-400); RBC 4.63 10x6/uL (4.00-5.40); RDW 14.3 % (11.5-14.5); WBC 7.9 10x3/uL (4.8-10.8)
[2018-12-27 06:27] LABS: CALC OSMOLALITY 295 mosm/kg (275-300); CALCIUM 8.7 mg/dL (8.5-10.1); CARBON DIOXIDE 30.5 mmol/L (21.0-32.0); CHLORIDE - SERUM 102 mmol/L (98-107); CREATININE - SERUM 0.8 mg/dL (0.6-1.3); GLUCOSE 371 mg/dL (74-106); POTASSIUM - SERUM 4.5 mmol/L (3.5-5.1); SODIUM 139 mmol/L (136-145); UREA NITROGEN 21 mg/dL (7-18); eGFR NON AFRICAN AMERICAN 80 mL/min (90-120)
--- NOTE | 2018-12-27 08:06 | NUR ---
RECEIVED CALL TO PREOP PT, PT LYING IN BED ASLEEP, ADMINISTERED PRE OP MEDS WELL BP AND TAMOXIFEN. NO NEEDS VOICED CONTINUE WITH PLAN OF CARE
[2018-12-27 08:29] VITALS: BP 157/78
--- NOTE | 2018-12-27 10:10 | NUR ---
RECEIVED PT IN BED FROM PHYSICAL THERAPY COORDINATOR SEDATED RESP UNLABORED SKIN W/D COLOR WNL PPPX4 TR BAND/BRACE INTACT TO RT WRIST VSS WILL CONTINUE TO MONITOR
--- NOTE | 2018-12-27 10:10 | NUR ---
CALLED AND GAVE REPORT TO MICHAEL SORENSEN. TRANSFERRED BELONGINGS TO ROOM AND WENT OVER ITEMS WITH RN/ ITEMS INCLUDED LAPTOP, IPAD, AMA[employer]ON TABLET, HEADPHONES, CLOTHES, STUFFED ANIMALS, NICOTEINE GUM, A FIVE DOLLAR BILL AND 8 QUARTERS, GLASSES, 2 SAMSUNG PHONES, AND A POCKET JUICE, HALF A 12PACK OF DIET SODAS, SHOES AND SOCKS. PT WAS LYING IN BED ASLEEP, CL IN HAND BED IN LOWEST POSITION. TRANSFERRED CARE TO [facility] MICHAEL
[2018-12-27 12:01] VITALS: BP 108/57
--- NOTE | 2018-12-27 12:02 | NUR ---
FSFS 225 REGULAR INSULIN GIVEN 12 UNITS TO ABD
[2018-12-27 15:40] VITALS: BP 127/60
--- NOTE | 2018-12-27 18:54 | NUR ---
FSBS 445 SPOKE WITH JAMIE GREER APN SHE STATED SHE WAS COVERED AT 1637 RECHECK AGAIN AT REGULAR TIME AND COVER PER SLIDING SCALE
--- NOTE | 2018-12-27 19:27 | NUR ---
RECIEVED UP IN BED WITH FAMILY AT BEDSIDE. SPOKE WITH HER EARLIER ABOUT ELEVATED BLOOD SUGAR. ALSO, WENT OVER HER MEDICATIONS. PT TAKES DIABETIC MEDICATIONS THAT ARE NOT ON HER MAR. WILL CALL FAMILY SERVICE ASSISTANT FOR ORDERS.
[2018-12-27 21:26] VITALS: BP 142/67
[2018-12-28 00:29] VITALS: BP 152/67
[2018-12-28 05:58] LABS: BASOPHILS 0 % (0-2); EOSINOPHILS 0 % (0-7); HEMATOCRIT 42.6 % (36.0-48.0); HEMOGLOBIN 14.3 g/dL (12-16); IMMATURE GRANULOCYTES 0.5 % (0-5); LYMPHOCYTES 14.9 % (15-50); MCH 31.8 pg (26.0-34.0); MCHC 33.6 g/dL (31.0-37.0); MCV 94.9 fL (80.0-100.0); MEAN PLATELET VOLUME 11.2 fL (7.4-10.4); MONOCYTES 4.8 % (2-11); NEUTROPHILS 79.8 % (40-80); PLATELET COUNT 115 10x3/uL (130-400); RBC 4.49 10x6/uL (4.00-5.40); RDW 14.1 % (11.5-14.5); WBC 6.6 10x3/uL (4.8-10.8)
[2018-12-28 06:06] LABS: CALC OSMOLALITY 292 mosm/kg (275-300); CALCIUM 8.1 mg/dL (8.5-10.1); CARBON DIOXIDE 31.3 mmol/L (21.0-32.0); CHLORIDE - SERUM 103 mmol/L (98-107); CREATININE - SERUM 0.6 mg/dL (0.6-1.3); POTASSIUM - SERUM 4.5 mmol/L (3.5-5.1); SODIUM 139 mmol/L (136-145); UREA NITROGEN 21 mg/dL (7-18); eGFR NON AFRICAN AMERICAN > 90 mL/min (90-120)
[2018-12-28 06:08] LABS: GLUCOSE 322 mg/dL (74-106)
[2018-12-28 06:22] VITALS: BP 144/66
--- NOTE | 2018-12-28 07:45 | NUR ---
ASSESSMENT COMPLETED.C/0 PAIN, MORPHINE GIVEN FOR RELIEF. TELEMERTY SHOWS SR. PT HAS O2 AT 4 L/M PER NC. UP AB BETY. RIGHT WRIST CATH SITE WITHOUT BLEEDING OR SWELLING. CALL LIGHTIN REACH WITH SR UP
[2018-12-28 09:17] LABS: IMMUNOGLOBULIN A 275 mg/dL (87-352); IMMUNOGLOBULIN G 774 mg/dL (700-1600)
[2018-12-28 09:52] VITALS: BP 147/64
--- NOTE | 2018-12-28 14:02 | NUR ---
C/O PAIN. MORPHINE 4MG IVP GIVEN FOR RELIEF. NO OTHER NEEDS VOICED
[2018-12-28 14:18] LABS: ANA REFLEX - DIRECT Negative (Negative)
[2018-12-28 15:18] VITALS: BP 151/70
--- NOTE | 2018-12-28 16:01 | NUR ---
AGREE WITH PAPER WRAPPING MACHINE OPERATOR'S ASSESSMENT. PT RESTING COMFORTABLY IN BED, FAMILY AT BEDSIDE, NAD NOTED.
--- NOTE | 2018-12-28 18:25 | NUR ---
NO SIGNS OF DISTRESS OR COMPLAINTS AT THIS TIME.
--- NOTE | 2018-12-28 19:21 | NUR ---
RECIEVED UP IN BED WITH FAMILY AT BEDSIDE. EDUCATED FAMILY AND PT ON HARMS OF HIGH BLOOD SUGARS. ALL VOICED UNDERSTANDING. FAMILY BRINGS FOOD IN FOR PT. DENEIS ANY NEEDS AT THIS TIME.
[2018-12-28 21:01] VITALS: BP 183/93
[2018-12-29 01:06] VITALS: BP 146/68
[2018-12-29 06:05] VITALS: BP 127/61
[2018-12-29 06:16] LABS: ALBUMIN 2.4 g/dL (3.4-5.0); ALKALINE PHOSPHATASE 61 U/L (46-116); ALT (SGPT) 17 U/L (10-68); BILIRUBIN - TOTAL 0.51 mg/dL (0.2-1.3); CALC OSMOLALITY 293 mosm/kg (275-300); CALCIUM 8.2 mg/dL (8.5-10.1); CARBON DIOXIDE 33.5 mmol/L (21.0-32.0); CHLORIDE - SERUM 102 mmol/L (98-107); CREATININE - SERUM 0.5 mg/dL (0.6-1.3); GLUCOSE 295 mg/dL (74-106); PROTEIN - SERUM 5.8 g/dL (6.4-8.2); SODIUM 141 mmol/L (136-145); UREA NITROGEN 18 mg/dL (7-18); eGFR NON AFRICAN AMERICAN > 90 mL/min (90-120)
[2018-12-29 06:17] LABS: POTASSIUM - SERUM 4.7 mmol/L (3.5-5.1)
[2018-12-29 06:19] LABS: BASOPHILS 0 % (0-2); EOSINOPHILS 0.2 % (0-7); HEMOGLOBIN 14.9 g/dL (12-16); IMMATURE GRANULOCYTES 0.3 % (0-5); LYMPHOCYTES 17.2 % (15-50); MCHC 33.9 g/dL (31.0-37.0); MCV 94.4 fL (80.0-100.0); MEAN PLATELET VOLUME 11.6 fL (7.4-10.4); MONOCYTES 3.4 % (2-11); NEUTROPHILS 78.9 % (40-80); PLATELET COUNT 121 10x3/uL (130-400); RBC 4.66 10x6/uL (4.00-5.40); WBC 5.8 10x3/uL (4.8-10.8)
--- NOTE | 2018-12-29 09:33 | NUR ---
SPOKE WITH PHARMACY AND ASKED FOR THEM TO BRING SALINE MIST NASAL SPRAY [facility] STATED THEY WILL BRING IT.
[2018-12-29 09:38] VITALS: BP 137/74
--- NOTE | 2018-12-29 11:13 | NUR ---
[facility] AWARE OF WALK TEST.
--- NOTE | 2018-12-29 11:38 | NUR ---
PER [facility] RESPIRATORY THERAPY SHE STATES PT QUALIFIED FOR WALK TEST.
--- NOTE | 2018-12-29 13:08 | NUR ---
PT UP WALKING WITH PT.
[2018-12-29 13:21] VITALS: BP 146/77
--- NOTE | 2018-12-29 14:07 | NUR ---
PT C/O "WHITE STUFF" IN MOUTH AND WANTING IBPROFEN INSTEAD TYLENOL. SPOKE WITH DR. CAT AND SHE STATES SHE'LL TAKE A LOOK AT IT.
--- NOTE | 2018-12-29 14:28 | NUR ---
PT C/O SWELLING IN FEET AND RIGHT MIDDLE TWO TOES "TURNING PURPLE" STATES THIS TO JAMIE ALEMAN AND AND DR. CAT STATES TO TELL PT "WE'LL COME LOOK AT IT."
--- NOTE | 2018-12-29 14:32 | NUR ---
PT TOOK A SHOWER WITH THE HELP OF FAMILY.
--- NOTE | 2018-12-29 15:00 | NUR ---
I have reviewed this patient and I concur with the Shift Assessment completed by the Licensed Practical Nurse today this shift.
[2018-12-29] MEDS ORDERED: GLUCOTROL 5 MG T5 MG PO (16:13)
--- NOTE | 2018-12-29 16:31 | MORECARE ---
CASE MANAGEMENT DISCHARGE SUMMARY PATIENT: SEJAL CHAIREZ UNIT: [id number] ADM DATE: 12/24/18 AGE: 48 : [birth year] SEX: F ROOM/BED: D.4133 AUTHOR: SOFI,DOC PHYSICIAN: REFERRING PHYSICIAN: DASHA MILLS MD DATE OF SERVICE: 12/29/18 Discharge Plan Patient Name: SEJAL CHAIREZ Facility: [facility]:[place] : 1970 Planned Disposition: Home Anticipated Discharge Date: Discharge Date: Expected LOS: Initial Reviewer: [email or web address] Initial Review Date: 12/24/2018 Generated: 12/29/18 5:31 pm Comments DCP- Discharge Planning Updated by [email or web address]: Jorge A Raymond on 12/29/18 3:[address] Patient Name: SEJAL CHAIREZ Encounter No: [id number] : 1970 Primary Insurance: NOVASYS MANAGED MEDICAID Anticipated DC Date: Planned Disposition: Home DCP follow-up note: CM RECEIVED ORDER FOR HOME OXYGEN TESTING. CM MET WITH PT IN ROOM, DISCUSSED PROVIDERS FOR MEDICAL EQUIPMENT AND OXYGEN QUALIFICATION STANDARDS FOR MEDICAID TO PAY FOR HOME OXYGEN. LIST OF PROVIDERS GIVEN, PT SIGNED FOR NO PREFERENCE ON PROVIDER IF SHE QUALIFIES FOR HOME OXYGEN. CM RECEIVED ABG TESTING, PT DID NOT QUALIFY FOR HOME / PORTABLE OXYGEN WITH PO2 OF 81. CM TO CONTINUE TO FOLLOW AND ASSIST NEEDED. ADRIA Eaton DCP- Discharge Planning Updated by [email or web address]: Inessa Juarez on 12/24/18 10:[address] Patient Name: SEJAL CHAIREZ Admission Status: ER Accout number: [id number] Admission Date: 12-24-2018 : 1970 Admission Diagnosis: Attending: DASHA MILLS Current LOS: 1 Anticipated DC Date: Planned Disposition: Home Primary Insurance: NOVASYS MANAGED MEDICAID Discharge Planning Comments: CM met with patient to complete initial dc planning assessment. CM educated patient on the CM role and verbal consent given by patient to complete assessment. Patient lives at home with her children. At discharge patient plans to return home and feels this is a safe discharge. CM discussed availability of home health, rehab services, and medical equipment. The patient has a cane and a nebulizer at home. Patient denied known discharge needs at this time. She may need home O2, when closer to discharge will need to have a walk test to see if she qualifies. CM will continue to follow and will assist as needed with dc plans/needs. Melter Operator: Inessa Juarez DCPIA - Discharge Planning Initial Assessment Updated by [email or web address]: Inessa Juarez on 12/24/18 11:50 am * Is the patient Alert and Oriented? Yes * How many steps to enter\exit or inside your home? * PCP Nikhil * [facility] * Preadmission Environment Home with Family * ADLs Independent * Equipment Cane Nebulizer * List name and contact numbers for known caregivers / representatives who currently or will assist patient after discharge: renu tristan [phone] * Verbal permission to speak to the caregivers and representatives has been obtained from the patient. N/A * Community resources currently utilized None * Additional services required to return to the preadmission environment? No * Can the patient safely return to the preadmission environment? Yes * Has this patient been hospitalized within the prior 30 days at any hospital? No Last DP export: 12/24/18 10:59 am Patient Name: SEJAL CHAIREZ Page 53770 at 1631 All edits/amendments must be made on the electronic document DICTATION DATE: 12/29/18 163 PULPING MACHINE OPERATOR: FLAKITA 12/29/18 163 RPT#: [id number] DC DATE: STATUS: ADM IN [facility] [address] [place] [address] END OF REPORT
--- NOTE | 2018-12-29 19:32 | NUR ---
PT SITTING UP IN BED, HAS VISITORS IN ROOM. PT STATES SHE IS GOING TO TAKE A NAP UNTIL I COME AT 2100 WITH MEDICATIONS. PT IS AAO. NO S/S OF DISTRESS. BEDLOW AND CALL LIGHT IN REACH. NAME AND DATE PLACED ON BOARD. WILL CPOC
[2018-12-29 20:00] VITALS: BP 124/68
[2018-12-29] MEDS ORDERED: IMITREX50 MG PO (21:14)
[2018-12-29] MEDS ORDERED: NOVOLOG100 UNIT/1 SC (21:16)
--- NOTE | 2018-12-29 21:32 | NUR ---
PT FSBS IS 215 PT GIVEN LANTUS ORDERED. DID NOT TAKE HER HUMILIN. PT TOOK HER NOVOLOG FROM HOME SHE SAID HER DR TOLD HER TO BRING THE MEDICATIONS THAT THE HOSPITAL DOESNT HAVE. PT UP ON SIDE OF THE BED. AAO UP AD BETY. PT WILL CALL FOR ASSIST WHEN NEEDED. WILL CPCO
--- NOTE | 2018-12-29 22:49 | NUR ---
PT COMPLAINS OF PAIN. MORPHINE GIVEN ORDERED. PT DENIES ANY OTHER NEEDS. WILL CPOC
[2018-12-30] VITALS: BP 116/69
--- NOTE | 2018-12-30 00:44 | NUR ---
PT ASLEEP. RESP EVEN AND UNLABORED. 2L O2 NC. PT HAS NO S/S OF DISTRESS. BEDLOW AND CALL LIGHT INREACH. WILL CPOC
--- NOTE | 2018-12-30 01:11 | NUR ---
PT UP AROUND ROOM AD BETY. PT TO RESTROOM. PUTTING MOISTURE BARRIER ON BUTTOCK PT HAS REDNESS FROM CONSTIPATION. PT BACK TO BED. FAMILY IN ROOM. PT WILL CALL FOR ASSIST WHEN NEEDED. NO S/S OF DISTRESS. WILL CPOC
--- NOTE | 2018-12-30 01:20 | NUR ---
PT HAD A MODERATE BOWEL MOVEMENT. FORMED.
--- NOTE | 2018-12-30 03:02 | NUR ---
S/L PT, PT LEFT HAND DRSG FOR PIV COMING OFF. REDRESSED LEFT HAND 20G IV AND S/L IV NOW CDI PATENT.PT DENIES ANY NEEDS. BEDLOW AND CALL LIGHT IN REACH. WILL CPOC
--- NOTE | 2018-12-30 03:09 | NUR ---
AT 2100 NURSE VERIFIED MED REC. WENT OVER MEDICATIONS AND DOSE WITH PT. PT STATED ALL MEDICATIONS CORRECT.
[2018-12-30 04:30] VITALS: BP 110/50
[2018-12-30 05:08] LABS: BASOPHILS 0 % (0-2); EOSINOPHILS 0 % (0-7); HEMATOCRIT 43.9 % (36.0-48.0); HEMOGLOBIN 14.7 g/dL (12-16); LYMPHOCYTES 12.9 % (15-50); MCHC 33.5 g/dL (31.0-37.0); MCV 95.4 fL (80.0-100.0); MEAN PLATELET VOLUME 11.4 fL (7.4-10.4); MONOCYTES 3.8 % (2-11); NEUTROPHILS 82.3 % (40-80); PLATELET COUNT 128 10x3/uL (130-400); WBC 6.1 10x3/uL (4.8-10.8)
[2018-12-30 05:30] LABS: ALBUMIN 2.4 g/dL (3.4-5.0); ANION GAP 9.7 mmol/L (8-16); BILIRUBIN - TOTAL 0.27 mg/dL (0.2-1.3); CALCIUM 8.1 mg/dL (8.5-10.1); CARBON DIOXIDE 32.5 mmol/L (21.0-32.0); POTASSIUM - SERUM 5.2 mmol/L (3.5-5.1); PROTEIN - SERUM 5.5 g/dL (6.4-8.2)
[2018-12-30 05:43] LABS: CREATININE - SERUM 0.9 mg/dL (0.6-1.3)
--- NOTE | 2018-12-30 05:54 | NUR ---
PT IS ASLEEP. AROUSES TO VERBAL STIMULI THAN GOES BACK TO SLEEP. PT GLUCOSE IS 530 INSULIN HUMILIN 28 UNITS GIVEN INTO RIGHT ARM. WILL RECHECK SUGAR AND CONTINUE TO TREAT NEEDED. PT HAS BEEN HAVING UNCONTROLLED SUGAR. NOT CALLING DOCTOR AT THIS TIME. WILL TREAT AND RECHECK SUGAR AND CPOC
--- NOTE | 2018-12-30 06:51 | NUR ---
FSBS IS 192 PT TREATED WITH NOVOLOG 10 UNITS. PT BROUGHT SOME HOME MEDS AND WAS TOLD BY DOCTOR SHE CAN TAKE DIABETIC AND CHEMO MEDS THAT THE HOSPITAL DOESNT HAVE.
--- NOTE | 2018-12-30 07:19 | NUR ---
PT COMPLAINS OF PAIN. MORPHINE GIVEN ORDERED TO LEFT HAND IV. PT SITTING ON SIDE. OF BED. PT IS AAO. UP AD BETY PT WILL CALL FOR ASSIST WHEN NEEDED. WILL CPOC
[2018-12-30 08:03] VITALS: BP 125/69
--- NOTE | 2018-12-30 10:44 | NUR ---
UP AMBULATING HALLWAY. C.O OF BRUICING TO OTHER FOOT. WILL MONITOR.
[2018-12-30 11:53] VITALS: BP 129/73
--- NOTE | 2018-12-30 11:54 | EC ---
PATIENT:SEJAL CHAIREZ DATE OF SERVICE: 12/24/18 SEX: F MEDICAL RECORD: [id number] DATE OF : [birth year] LOCATION:D.M2 D.211 AGE OF PATIENT: 48 ADMISSION DATE: 12/24/18 REFERRING PHYSICIAN: INTERPRETING PHYSICIAN: JN ROSENBAUM MD ECHOCARDIOGRAM REPORT ECHO CHARGES 4 ECHO COMPLETE Date: 12/24/18 CLINICAL DIAGNOSIS: CHF ECHOCARDIOGRAPHIC MEASUREMENTS (adult normal given) AC root (d.<3.7cm) 2.9 cm LV Septum d (<1.2 cm> 1.0 cm Valve Excursion 1.3 cm LV Septum (systole) 1.2 cm Left Atria (s.<4.0cm> 4.1 cm LVPW d(<1.2cm) 1.4 cm RV (d.<2.3cm) 4.0 cm LVPW (sytole) 1.7 cm LV diastole(<5.6CM) 5.0 cm MV E-F(>70mm/sec) cm LV systole 4.1 cm LVOT Diameter 1.7 cm MV exc.(>10mm) 1.3 cm Est.ejection fraction (50-75%) % DOPPLER: LVIT cm/sec A 76.0 cm/sec E 106 cm/sec LA cm/sec RVSP 44 mmHg LVOT 107 cm/sec AOP1/2T m/s Asc. Ao 117 cm/sec RVOT 76 cm/sec RA cm/sec PA 78 cm/sec AV Gradient Peak 5.49 mmHg AV Mean 3.17 mmHg AV Area 2.1 cm MV Gradient Peak 7.36 mmHg MV Mean 3.18 mmHg MV Area cm COMMENTS: Medical Center Director: Laura RUSSELL Access Nurse: 1 Dr. Rosenbaum TAPE# PACS Pericardial Effusion N DATE OF SERVICE: 12/24/2018 PROCEDURE: Echocardiogram. FINDINGS: 1. Left ventricular chamber size is within normal limits. Left ventricular systolic function is normal. Overall ejection fraction estimated at 50%. 2. Left atrium is enlarged at 4.1 cm. Right atrium and right ventricle chamber sizes are as well mildly dilated. 3. Valvular structures have normal structure and motion. ECHOCARDIOGRAM REPORT [id number] SEJAL CHAIREZ 4. Doppler interrogation reveals moderate mitral regurgitation, [id number] tricuspid regurgitation, no other valvular insufficiency or stenosis. Pulmonary systolic pressure is estimated at 44 mmHg. 5. No evidence of pericardial effusion or left ventricular thrombus. TRANSINT:[id number] Voice Confirmation ID: [id number] DOCUMENT ID: [id number] JN ROSENBAUM MD at 1154 CC: [id number] DICTATION DATE: 12/24/18 1127 DESIGN CELL ENGINEER: 12/24/18 1155 ADM IN [place] [address] [place] [address]
--- NOTE | 2018-12-30 13:10 | CN ---
PATIENT NAME:SEJAL CHAIREZ MEDICAL RECORD: [id number] : [birth year] LOCATION:DLefty D.2119 ADMIT DATE: 12/24/18 ACCOUNT: [id number] CONSULTING PHYSICIAN: JASON RIDLEY MD REFERRING PHYSICIAN: DASHA MILLS MD DATE OF CONSULTATION: 12/25/2018 HISTORY: A 48-year-old female with history of hypertension and diabetes mellitus, who presented with chest pain. She has noted increased effort and tolerance over the past, probably 2-3 months. She has a long-standing history of smoking. LV function was normal on most recent echocardiographic study. She continues to have intermittent pain with pressure and tightness. We are asked to see her concerning her cardiovascular status. PAST MEDICAL HISTORY: Includes; 1. History of diabetes mellitus. 2. Hyperlipidemia. 3. Pulmonary hypertension. ALLERGIES: PENICILLIN. MEDICATIONS: Include baclofen 20 mg at bedtime, pravastatin 20 at bedtime, Neurontin 800 t.i.d., Cymbalta 30 b.i.d., Motrin 800 t.i.d. p.r.n., tramadol 50 t.i.d. p.r.n., Singulair 10 at bedtime, Trulicity 0.75 mg weekly, and tamoxifen 25 daily. SOCIAL HISTORY: She smokes about 10 cigarettes a day. Nondrinker. No illicit drug use. Easily takes care of all ADLs. REVIEW OF SYSTEMS: The patient reports easy bruising but reports no swollen glands. The patient reports no fever, no night sweats, no significant weight gain, no significant weight loss. No significant exercise tolerance. The patient reports no dry eyes, no irritation, no vision change. Patient reports no difficulty hearing and no ear pain. Patient reports no frequent nose bleeds or nose and sinus problems. Patient reports on arm pain on exertion. No shortness of breath while lying down. No history of heart murmur. Patient reports no cough, no wheezing or coughing up blood. Patient reports no abdominal pain, no vomiting. Normal appetite. No diarrhea and not vomiting blood. No nausea and no constipation. Patient reports no incontinence. No difficulty urinating. No hematuria. No increased frequency. Patient reports no muscle aches. No weakness, no arthralgias, no back pain. No swelling of the extremities. Patient reports no abnormal mole, no jaundice, no rashes. Reports no loss of consciousness. No weakness and no numbness. No seizures, dizziness, or headaches. The patient reports no depression, no sleep disturbance, feeling safe in a relationship and no alcohol abuse. Patient reports on fatigue. Reports no runny nose or sinus pressure. No itching, no hives, and no frequent sneezing. PHYSICAL EXAMINATION: GENERAL: Pleasant female, in no acute distress. VITAL SIGNS: Blood pressure 115/58. Pulse 87 and regular. HEENT: Normocephalic and atraumatic. NECK: No bruits noted. HEART: Regular. II/ systolic ejection murmur. LUNGS: Good air excursion. CONSULT REPORT [id number] SEJAL CHAIREZ ABDOMEN: Soft and nontender. EXTREMITIES: Pulses 2+. No edema. IMPRESSION: Exertional chest tightness and pressure, progressing on this admit. Questionable underlying upper respiratory tract infection. We will continue antibiotics. We will work on glucose control. Plan for diagnostic angiography in couple of days. Further recommendations based on above. TRANSINT:[id number] Voice Confirmation ID: [id number] DOCUMENT ID: [id number] JASON RIDLEY MD at 1310 CC: [id number] DICTATION DATE: 12/25/18 1226 NETWORK CONSULTANT: 12/26/18 0002 ADM IN [place] [id number] [place] [id number]
--- NOTE | 2018-12-30 13:10 | OP ---
PATIENT NAME: SEJAL CHAIREZ MEDICAL RECORD: [id number] :[birth year] LOCATION:D.M2 D.2119 ADMISSION DATE:12/24/18 SURGEON: JASON RIDLEY MD DATE OF OPERATION: 12/27/2018 PROCEDURE: Left heart catheterization, selective coronary angiography, right radial approach. CATHETERS: Selma catheter and radial sheath. The procedure was well tolerated. The patient was returned to the [facility]. Sheath was removed. TR band was placed. FINDINGS: Left ventriculography in 30-degree CHILDERS view shows mild to hypo LV function 50%. CORONARY ANATOMY: LEFT MAIN: Left main is free of disease. LAD: It has proximal diffuse 80% stenosis with takeoff of first diagonal, typical diabetic disease. CIRCUMFLEX: Large circumflex without significant disease and fills the right via snel-qy-sxwsc collaterals. Right is totally occluded, fills via msvq-zq-malrp collaterals. PLAN: Intervention to LAD momentarily. DESCRIPTION OF PROCEDURE: Using indwelling radial sheath, EBU 3.0 guide catheter provided good catheter support followed by 300-cm Whisper wire was placed across the tightly occluded LAD down this portion of the vessel. Stent deployed was 3.0 x 24 mm [place] stent up to 14 atmospheres for 45 seconds. Final angiography shows excellent resolution of diffuse 80% to 90% stenosis with no significant residual. BIANKA flow was 3 throughout the procedure. Integrilin was used in the case. Plavix was loaded in the lab. Sheath was closed with TR band. TRANSINT:[id number] Voice Confirmation ID: [id number] DOCUMENT ID: [id number] JASON RIDLEY MD at 1310 CC: [id number] DICTATION DATE: 12/27/18 0940 CATHEAD OPERATOR: 12/27/18 1158 ADM IN [facility] [address] [place] [address]
[2018-12-30] MEDS ORDERED: ASPIRIN325 MG PO (14:38)
[2018-12-30] MEDS ORDERED: LISINOPRIL10 MG PO (14:38)
[2018-12-30] MEDS ORDERED: MUCINEX DM ER1 EAC1 PO (14:39)
[2018-12-30] MEDS ORDERED: Nystatin Oral Susp [ PO (14:41)
[2018-12-30] MEDS ORDERED: Tessalon Perle PO (14:41)
[2018-12-30] MEDS ORDERED: LEVOFLOXACIN500 MG PO (14:44)
[2018-12-30] MEDS ORDERED: PLAVIX75 MG PO (15:08)
--- NOTE | 2018-12-30 16:18 | NUR ---
IV AND TELEMETRY DCD. DC PLANS GIVEN. UNDERSTANDING VOICED. ESCORTED TO CAR BY W/C.
[2018-12-30 18:09] LABS: IMMUNOGLOBULIN E 76 IU/mL (6-495)
--- NOTE | 2018-12-31 09:28 | MORECARE ---
CASE MANAGEMENT DISCHARGE SUMMARY PATIENT: SEJAL CHAIREZ UNIT: [id number] ADM DATE: 12/24/18 AGE: 48 : [birth year] SEX: F ROOM/BED: D.0626 AUTHOR: SOFI,DOC PHYSICIAN: REFERRING PHYSICIAN: DASHA MILLS MD DATE OF SERVICE: 12/31/18 Discharge Plan Patient Name: SEJAL CHAIREZ Facility: [facility]:[place] : 1970 Planned Disposition: Home Anticipated Discharge Date: 12/30/18 Discharge Date: 12/30/2018 Expected LOS: 6 Initial Reviewer: [email or web address] Initial Review Date: 12/24/2018 Generated: 12/31/18 10:28 am Comments DCP- Discharge Planning Updated by [email or web address]: Jorge A Raymond on 12/29/18 3:[address] Patient Name: SEJAL CHAIREZ Encounter No: [id number] : 1970 Primary Insurance: NOVASYS MANAGED MEDICAID Anticipated DC Date: Planned Disposition: Home DCP follow-up note: CM RECEIVED ORDER FOR HOME OXYGEN TESTING. CM MET WITH PT IN ROOM, DISCUSSED PROVIDERS FOR MEDICAL EQUIPMENT AND OXYGEN QUALIFICATION STANDARDS FOR MEDICAID TO PAY FOR HOME OXYGEN. LIST OF PROVIDERS GIVEN, PT SIGNED FOR NO PREFERENCE ON PROVIDER IF SHE QUALIFIES FOR HOME OXYGEN. CM RECEIVED ABG TESTING, PT DID NOT QUALIFY FOR HOME / PORTABLE OXYGEN WITH PO2 OF 81. CM TO CONTINUE TO FOLLOW AND ASSIST NEEDED. Jorge A Raymond, ADRIA HERNANDEZ DCP- Discharge Planning Updated by [email or web address]: Inessa Juarez on 12/24/18 10:[address] Patient Name: SEJAL CHAIREZ Admission Status: ER Accout number: [id number] Admission Date: 12-24-2018 : 1970 Admission Diagnosis: Attending: DASHA MILLS Current LOS: 1 Anticipated DC Date: Planned Disposition: Home Primary Insurance: NOVASYS MANAGED MEDICAID Discharge Planning Comments: CM met with patient to complete initial dc planning assessment. CM educated patient on the CM role and verbal consent given by patient to complete assessment. Patient lives at home with her children. At discharge patient plans to return home and feels this is a safe discharge. CM discussed availability of home health, rehab services, and medical equipment. The patient has a cane and a nebulizer at home. Patient denied known discharge needs at this time. She may need home O2, when closer to discharge will need to have a walk test to see if she qualifies. CM will continue to follow and will assist as needed with dc plans/needs. Vamp Strap Ironer: Inessa Juarez DCPIA - Discharge Planning Initial Assessment Updated by [email or web address]: Inessa Juarez on 12/24/18 11:50 am * Is the patient Alert and Oriented? Yes * How many steps to enter\exit or inside your home? * PCP Nikhil * [facility] * Preadmission Environment Home with Family * ADLs Independent * Equipment Cane Nebulizer * List name and contact numbers for known caregivers / representatives who currently or will assist patient after discharge: renu tristan [phone] * Verbal permission to speak to the caregivers and representatives has been obtained from the patient. N/A * Community resources currently utilized None * Additional services required to return to the preadmission environment? No * Can the patient safely return to the preadmission environment? Yes * Has this patient been hospitalized within the prior 30 days at any hospital? No Last DP export: 12/29/18 3:31 pm Patient Name: SEJAL CHAIREZ Page [id number] at 0928 All edits/amendments must be made on the electronic document DICTATION DATE: 12/31/18926 ZIGZAG APPLIQUER: FLAKITA 12/31/18926 RPT#: [id number] DC DATE:12/30/18 STATUS: DIS IN [facility] [address] [place] [address] END OF REPORT
== END 2018-12-30 16:18 | disposition home or self-care (01) | DRG 246 ==
LOC: D.ER 22:16 → D.M2 12-24 00:25 → D.EDHOLD 12-24 00:25 → D.MS 12-24 00:25 → D.M2 12-27 09:57 → D.SDCHOLD 12-29 20:37 → D.M2 12-29 20:40
PROVIDERS: Emergency Medicine; Family Medicine; Internal Medicine Interventional Cardiology; Internal Medicine Pulmonary Disease; ADMIT Internal Medicine Nephrology; ATTEND Internal Medicine Nephrology
PROC: B2111ZZ Fluoroscopy of Multiple Coronary Arteries using Low Osmolar Contrast (ICD-10-PCS; 2018-12-27)
PROC: B2151ZZ Fluoroscopy of Left Heart using Low Osmolar Contrast (ICD-10-PCS; 2018-12-27)
PROC: 027034Z Dilation of Coronary Artery, One Artery with Drug-eluting Intraluminal Device, Percutaneous Approach (ICD-10-PCS; principal; 2018-12-27 09:00)
PROC: 4A023N7 Measurement of Cardiac Sampling and Pressure, Left Heart, Percutaneous Approach (ICD-10-PCS; 2018-12-27 09:00)
DX: I11.0 Hypertensive heart disease with heart failure (principal); J18.9 Pneumonia, unspecified organism; J96.01 Acute respiratory failure with hypoxia; J44.1 Chronic obstructive pulmonary disease with (acute) exacerbation; J44.0 Chronic obstructive pulmonary disease with (acute) lower respiratory infection; F17.213 Nicotine dependence, cigarettes, with withdrawal; I50.23 Acute on chronic systolic (congestive) heart failure; I25.10 Atherosclerotic heart disease of native coronary artery without angina pectoris; E11.9 Type 2 diabetes mellitus without complications; E11.69 Type 2 diabetes mellitus with other specified complication; J20.9 Acute bronchitis, unspecified; I08.1 Rheumatic disorders of both mitral and tricuspid valves; I25.119 Atherosclerotic heart disease of native coronary artery with unspecified angina pectoris; G47.33 Obstructive sleep apnea (adult) (pediatric); J30.9 Allergic rhinitis, unspecified; I27.20 Pulmonary hypertension, unspecified; E11.40 Type 2 diabetes mellitus with diabetic neuropathy, unspecified

== ENCOUNTER 2018-12-31 11:20 | Inpatient (IN) | payer OTHER ==
[2018-12-31] VITALS (15 sets, daily range): BP systolic 82–120; BP diastolic 46–70; BMI 32.2
[~2018-12-31] VITALS: Ht 172.7 cm; Wt 94.3 kg
[~2018-12-31 11:20] MED LIST changes: +ASPIRIN325 MG PO; +GLUCOTROL 5 MG T5 MG PO; +IMITREX50 MG PO; +LEVOFLOXACIN500 MG PO; +LISINOPRIL10 MG PO; +MUCINEX DM ER1 EAC1 PO; +NOVOLOG100 UNIT/1 SC; +Nystatin Oral Susp [ PO; +PLAVIX75 MG PO; +SINGULAIR10 MG PO; +TAMOXIFEN CITRA20 MG PO; +TRULICITY0.75 MG/0. SC; +Tessalon Perle PO; +VITAMIN D250000 UNIT PO
[2018-12-31 11:58] LABS: BASOPHILS 0.1 % (0-2); HEMATOCRIT 42.9 % (36.0-48.0); HEMOGLOBIN 15.2 g/dL (12-16); IMMATURE GRANULOCYTES 1.5 % (0-5); LYMPHOCYTES 39.2 % (15-50); MCHC 35.4 g/dL (31.0-37.0); MEAN PLATELET VOLUME 11.1 fL (7.4-10.4); MONOCYTES 7.3 % (2-11); NEUTROPHILS 49.9 % (40-80); PLATELET COUNT 131 10x3/uL (130-400); RDW 13.7 % (11.5-14.5); WBC 7.5 10x3/uL (4.8-10.8)
[2018-12-31 11:59] LABS: MCV 93.3 fL (80.0-100.0)
[2018-12-31 12:06] LABS: APTT 25.1 SECONDS (22.8-39.4); INR 1.09 (0.85-1.17); PROTIME 13.6 SECONDS (11.6-15.0)
[2018-12-31 12:11] LABS: ALBUMIN 2.6 g/dL (3.4-5.0); ALKALINE PHOSPHATASE 74 U/L (46-116); ALT (SGPT) 25 U/L (10-68); BILIRUBIN - TOTAL 0.23 mg/dL (0.2-1.3); CALC OSMOLALITY 292 mosm/kg (275-300); CARBON DIOXIDE 32.7 mmol/L (21.0-32.0); CHLORIDE - SERUM 103 mmol/L (98-107); CREATININE - SERUM 1.2 mg/dL (0.6-1.3); GLUCOSE 178 mg/dL (74-106); POTASSIUM - SERUM 3.9 mmol/L (3.5-5.1); PROTEIN - SERUM 5.6 g/dL (6.4-8.2); SODIUM 141 mmol/L (136-145); UREA NITROGEN 35 mg/dL (7-18); eGFR NON AFRICAN AMERICAN 50 mL/min (90-120)
[2018-12-31 12:23] LABS: CKMB 1.3 U/L (0.0-3.6); CREATINE KINASE 80 UL (21-215); PRO BNP 2012 pg/mL (0-125); TROPONIN-I 0.033 ng/mL (0.000-0.060)
[2018-12-31 14:36] LABS: UDS - AMPHET NEGATIVE QUAL (NEGATIVE); UDS - BARB NEGATIVE QUAL (NEGATIVE); UDS - BENZO NEGATIVE QUAL (NEGATIVE); UDS - COCAINE NEGATIVE QUAL (NEGATIVE); UDS - OPIATE POSITIVE QUAL (NEGATIVE); UDS - PCP NEGATIVE QUAL (NEGATIVE); UDS - THC NEGATIVE QUAL (NEGATIVE)
[2018-12-31 14:52] LABS: APPEARANCE CLEAR (CLEAR); BILIRUBIN NEGATIVE (NEGATIVE); COLOR YELLOW (YELLOW); GLUCOSE 250 mg/dL (NEGATIVE); KETONE NEGATIVE (NEGATIVE); NITRITE NEGATIVE (NEGATIVE); PROTEIN NEGATIVE (NEGATIVE); UROBILINOGEN NORMAL (NORMAL)
--- NOTE | 2018-12-31 17:02 | NUR ---
ARRIVED FROM ER VIA STRETCHER. LETHARGIC. FOLLOWS COMMNADS. ABLE TO TRANSFER SELF FROM STRETCHER TO BED. PLACED ON 2L OF 02 VIA NC. 02 SAT 96%. HAS 20G PIV ON ASHLEY WITH LEVOPHED AT 1MCG/MIN AND NARCAN DRIP AT 61.5ML/HR. CONNECTED TO TELEMETRY. DR. JENNIFER LEW.
--- NOTE | 2018-12-31 17:07 | NUR ---
DR. RODRIGUEZ NOTIFIED OF PATIENT ARRIVAL TO UNIT. NOTIFIED THAT SHE IS ON A NARCAN DRIP AND LEVOPHED DRIP. HE ORDERED NARCAN TO BE DC'D.
--- NOTE | 2018-12-31 17:11 | NUR ---
GLENN ZIMMERIP DISCONTINUED PER DR. RODRIGUEZ'S ORDERS.
--- NOTE | 2018-12-31 17:52 | NUR ---
BP 110/61. LEVOPHED DRIP TURNED OFF AT THIS TIME. WILL CONTINUE TO MONITOR BP AND TREAT PER ORDERS. DINNER TRAY DELIVERED AND SET UP. PT SITTING UP AT THIS TIME. NO FURTHER NEEDS. CALL LIGHT IN REACH.
--- NOTE | 2018-12-31 18:18 | NUR ---
DR. RAMOS PAGED AT THIS TIME. WAITING VERIFICATION REP BACK.
--- NOTE | 2018-12-31 18:54 | NUR ---
DR. RAMOS NOTIFIED OF CONSULT. SPOKE WITH HIM DIRECTLY.
--- NOTE | 2018-12-31 19:00 | NUR ---
ASSUMED CARE OF PATIENT. INITIAL SHIFT ASSESSMENT COMPLETED, SEE FLOWSHEET. WILL MONITOR CLOSELY THROUGH OUT THE NIGHT.
--- NOTE | 2018-12-31 21:00 | NUR ---
BLOOD SUGAR 171, 2 UNITS OF INSULIN GIVEN PER SLIDING SCALE ORDER. NO OTHER PM MEDS GIVEN. WILL CTM.
--- NOTE | 2018-12-31 23:00 | NUR ---
REASSESSMENT COMPLETED, SEE FLOWSHEET.
[2019-01-01] VITALS (18 sets, daily range): BP systolic 96–141; BP diastolic 39–76; Ht 172.7 cm; Wt 94.3 kg
--- NOTE | 2019-01-01 01:00 | NUR ---
NO CHANGES NOTED. PATIENT SLEEPING. WILL CTM.
--- NOTE | 2019-01-01 03:00 | NUR ---
REASSESSMENT COMPLETED, SEE FLOWSHEET.
[2019-01-01 04:04] LABS: BASOPHILS 0.2 % (0-2); EOSINOPHILS 1.8 % (0-7); HEMOGLOBIN 15.5 g/dL (12-16); IMMATURE GRANULOCYTES 1.6 % (0-5); LYMPHOCYTES 35.5 % (15-50); MCH 32.3 pg (26.0-34.0); MCHC 34.4 g/dL (31.0-37.0); MCV 93.8 fL (80.0-100.0); MEAN PLATELET VOLUME 10.7 fL (7.4-10.4); MONOCYTES 9.5 % (2-11); NEUTROPHILS 51.4 % (40-80); PLATELET COUNT 144 10x3/uL (130-400); RDW 13.8 % (11.5-14.5); WBC 8.6 10x3/uL (4.8-10.8)
[2019-01-01 04:17] LABS: ALBUMIN 2.4 g/dL (3.4-5.0); ALKALINE PHOSPHATASE 51 U/L (46-116); ALT (SGPT) 24 U/L (10-68); BILIRUBIN - TOTAL 0.36 mg/dL (0.2-1.3); CALCIUM 8.2 mg/dL (8.5-10.1); CARBON DIOXIDE 35.3 mmol/L (21.0-32.0); CHLORIDE - SERUM 105 mmol/L (98-107); GLUCOSE 140 mg/dL (74-106); POTASSIUM - SERUM 4.2 mmol/L (3.5-5.1); PROTEIN - SERUM 5.5 g/dL (6.4-8.2); SODIUM 144 mmol/L (136-145)
[2019-01-01 04:18] LABS: CALC OSMOLALITY 291 mosm/kg (275-300); CREATININE - SERUM 0.7 mg/dL (0.6-1.3); UREA NITROGEN 21 mg/dL (7-18); eGFR NON AFRICAN AMERICAN > 90 mL/min (90-120)
--- NOTE | 2019-01-01 05:00 | NUR ---
NO ACUTE CHANGES NOTED. VSS. PATIENT APPEARS TO BE RESTING COMFORTABLY. WILL CTM.
--- NOTE | 2019-01-01 07:00 | NUR ---
SHIFT ASSESSMENT COMPLETED, PT CARE ASSUMED, MONITORS ON AND WORKING, VITALS STABLE, PT AWAKE AND ALERT, NO SIGNS/SYMPTOMS OF PAIN OR DISCOMFORT NOTED AT THIS TIME, CALL LIGHT WITHIN REACH WILL CONTINUE TO OBSERVE.
--- NOTE | 2019-01-01 09:00 | NUR ---
PT SITTING UP IN BED EATING BREAKFAST, PT AWAKE AND ALERT, MONITORS ON AND WORKING, VITALS STABLE. FAMILY AT BEDSIDE, UPDATE PROVIDED. CALL LIGHT WITHIN REACH, WILL CONTINUE TO OBSERVE.
--- NOTE | 2019-01-01 11:00 | NUR ---
PT SITTING UP IN BED EATING LUNCH, MONITORS ON AND WORKING, VITALS STABLE, PT AWAKE AND ALERT. NO SIGNS/SYMPTOMS OF PAIN OR DISCOMFORT NOTED AT THIS TIME, WILL CONTINUE TO OBSERVE.
--- NOTE | 2019-01-01 13:00 | NUR ---
ORDERS REC'D TO TRANSFER PT TO FLOOR WHEN ROOM BECOMES AVAILABLE. FAMILY AT BEDSIDE, UPDATE PROVIDED, MONITORS ON AND WORKING, VITALS STABLE, WILL CONTINUE TO OBSERVE.
--- NOTE | 2019-01-01 15:00 | NUR ---
NO CHANGES, PT UP AD BETY, MONIITORS ON AND WORKING, VITALS STABLE, NO SIGNS/SYMPTOMS OF PAIN OR DISCOMFORT NOTED AT THIS TIME, WILL CONTINUE TO OBSERVE. SEE FLOW SHEET FOR FURTHER DETAILS WILL CONTINUE TO OBSERVE.
--- NOTE | 2019-01-01 19:15 | NUR ---
RECEIVED CARE FROM DAY NURSE. SITTING UP IN BED WITH COMPANY AT SIDE. REPORTS NO NEEDS AT THIS TIME. CALL LIGHT AT SIDE. IV SL TO LEFT AC.
--- NOTE | 2019-01-01 19:35 | NUR ---
LATE ENTRY 1829 REC'D PT FROM ICU. AAOX4. BROUGHT PT COFFEE PER HER REQUEST. NO S/S OF ACUTE DISTRESS. CL IN PLACE.
[2019-01-02 04:20] VITALS: BP 134/69
--- NOTE | 2019-01-02 05:11 | NUR ---
I have reviewed this patient and I concur with the Shift Assessment completed by the Licensed Practical Nurse today this shift.
[2019-01-02 06:44] LABS: BASOPHILS 0.3 % (0-2); EOSINOPHILS 1.6 % (0-7); HEMATOCRIT 45.3 % (36.0-48.0); HEMOGLOBIN 15.1 g/dL (12-16); IMMATURE GRANULOCYTES 1.4 % (0-5); LYMPHOCYTES 27.2 % (15-50); MCH 31.6 pg (26.0-34.0); MCHC 33.3 g/dL (31.0-37.0); MCV 94.8 fL (80.0-100.0); MEAN PLATELET VOLUME 11.4 fL (7.4-10.4); MONOCYTES 6.8 % (2-11); NEUTROPHILS 62.7 % (40-80); PLATELET COUNT 135 10x3/uL (130-400); RBC 4.78 10x6/uL (4.00-5.40)
[2019-01-02 06:47] LABS: WBC 6.3 10x3/uL (4.8-10.8)
[2019-01-02 07:19] LABS: ALBUMIN 2.7 g/dL (3.4-5.0); ALKALINE PHOSPHATASE 67 U/L (46-116); ALT (SGPT) 26 U/L (10-68); CARBON DIOXIDE 29.8 mmol/L (21.0-32.0); CHLORIDE - SERUM 100 mmol/L (98-107); CREATININE - SERUM 0.7 mg/dL (0.6-1.3); POTASSIUM - SERUM 4.2 mmol/L (3.5-5.1); PROTEIN - SERUM 6.1 g/dL (6.4-8.2); SODIUM 138 mmol/L (136-145); eGFR NON AFRICAN AMERICAN > 90 mL/min (90-120)
[2019-01-02 07:20] LABS: CALC OSMOLALITY 288 mosm/kg (275-300); GLUCOSE 329 mg/dL (74-106); UREA NITROGEN 13 mg/dL (7-18)
[2019-01-02 08:59] VITALS: BP 139/55
[2019-01-02 13:09] VITALS: BP 116/77
--- NOTE | 2019-01-02 15:19 | NUR ---
I have reviewed this patient and I concur with the Shift Assessment completed by the Licensed Practical Nurse today this shift.
[2019-01-02 16:47] VITALS: BP 117/60
--- NOTE | 2019-01-02 19:15 | NUR ---
RECEIVED CARE FROM DAY NURSE. SITTING UP ON SIDE OF BED. FAMILY AT SIDE. REPORTS NO NEEDS AT THIS TIME. CALL LIGHT AT SIDE. NO IV. PER DAY NURSE NO IV MEDICATIONS AND PT DOES NOT WANT ANOTHER IV.
[2019-01-02 20:00] VITALS: BP 118/75
[2019-01-02] MEDS ORDERED: LASIX40 MG PO (20:47)
--- NOTE | 2019-01-02 23:33 | NUR ---
SPOKE WITH HS ABOUT PULLING PT TRAZADONE
[2019-01-03] VITALS: BP 105/61
[2019-01-03 03:00] VITALS: BP 92/45
[2019-01-03 06:28] LABS: ALBUMIN 2.4 g/dL (3.4-5.0); ALKALINE PHOSPHATASE 59 U/L (46-116); ALT (SGPT) 26 U/L (10-68); BILIRUBIN - TOTAL 0.43 mg/dL (0.2-1.3); CALC OSMOLALITY 289 mosm/kg (275-300); CALCIUM 8.4 mg/dL (8.5-10.1); CARBON DIOXIDE 30.6 mmol/L (21.0-32.0); CHLORIDE - SERUM 103 mmol/L (98-107); CREATININE - SERUM 0.6 mg/dL (0.6-1.3); GLUCOSE 293 mg/dL (74-106); MAGNESIUM - SERUM 1.8 mg/dL (1.8-2.4); POTASSIUM - SERUM 4.8 mmol/L (3.5-5.1); PROTEIN - SERUM 5.4 g/dL (6.4-8.2); SODIUM 140 mmol/L (136-145); UREA NITROGEN 13 mg/dL (7-18); eGFR NON AFRICAN AMERICAN > 90 mL/min (90-120)
[2019-01-03 06:33] LABS: BASOPHILS 0.2 % (0-2); EOSINOPHILS 2.2 % (0-7); HEMATOCRIT 42.1 % (36.0-48.0); HEMOGLOBIN 14.1 g/dL (12-16); LYMPHOCYTES 26.7 % (15-50); MCH 31.7 pg (26.0-34.0); MCHC 33.5 g/dL (31.0-37.0); MCV 94.6 fL (80.0-100.0); MEAN PLATELET VOLUME 10.9 fL (7.4-10.4); MONOCYTES 13.5 % (2-11); NEUTROPHILS 55.4 % (40-80); PLATELET COUNT 130 10x3/uL (130-400); RBC 4.45 10x6/uL (4.00-5.40); RDW 13.9 % (11.5-14.5); WBC 5.1 10x3/uL (4.8-10.8)
--- NOTE | 2019-01-03 06:55 | NUR ---
I have reviewed this patient and I concur with the Shift Assessment completed by the Licensed Practical Nurse today this shift.
[2019-01-03 08:30] VITALS: BP 118/90
--- NOTE | 2019-01-03 08:39 | NUR ---
PATIENT ALERT AND ORIENTED X 3. LUNGS CLEAR IN ALL HURST BILATERALLY. HEART SOUNDS EQUAL RATE AND RHYTHM BILATERALLY. BOWEL SOUNDS HEARD X 4. STATES NO ISSUES MOVING BOWELS. SKIN IRRITATION NOTED TO RIGHT UPPER CHEST FROM OLD NICOTINE PATCH. HYPOALERGENIC CREAM APPLIED. WILL CONTINUE TO MONITOR. BRUSING/BLISTERED AREAS NOTED TO LEFT FOOT 1ST AND 2ND TOE AND TO RIGHT FOOT 2ND AND 3RD TOE. BETADINE AND BANDAID APPLIED. NOTE MADE TO NOTIFY PHYSICIAN. STATES PAIN STILL PERSISTS AFTER PRN TRAMADOL AT 6/10. PRN NORCO GIVEN. WILL CONTINUE TO MONITOR. DENIES FURTHER NEEDS AT THIS TIME.
--- NOTE | 2019-01-03 09:07 | NUR ---
STATES PAIN DECREASED TO LEVEL 3/10. WILL CONTINUE TO MONITOR.
--- NOTE | 2019-01-03 10:54 | EC ---
PATIENT:SEJAL CHAIREZ DATE OF SERVICE: 12/31/18 SEX: F MEDICAL RECORD: [id number] DATE OF : 66 LOCATION:D.[facility] [place] AGE OF PATIENT: 48 ADMISSION DATE: 12/31/18 REFERRING PHYSICIAN: INTERPRETING PHYSICIAN: JN ROSENBAUM MD ECHOCARDIOGRAM REPORT ECHO CHARGES 5 ECHO LIMITED Date: 01/01/19 CLINICAL DIAGNOSIS: BP ECHOCARDIOGRAPHIC MEASUREMENTS (adult normal given) AC root (d.<3.7cm) 0 cm LV Septum d (<1.2 cm> 0 cm Valve Excursion 0 cm LV Septum (systole) 0 cm Left Atria (s.<4.0cm> 0 cm LVPW d(<1.2cm) 0 cm RV (d.<2.3cm) 0 cm LVPW (sytole) 0 cm LV diastole(<5.6CM) 0 cm MV E-F(>70mm/sec) 0 cm LV systole 0 cm LVOT Diameter 0 cm MV exc.(>10mm) 0 cm Est.ejection fraction (50-75%) 0 % DOPPLER: LVIT cm/sec A 0 cm/sec E 0 cm/sec LA 0 cm/sec RVSP 21.1 mmHg LVOT 0 cm/sec AOP1/2T m/s Asc. Ao 0 cm/sec RVOT 0 cm/sec RA 0 cm/sec PA 0 cm/sec AV Gradient Peak 0 mmHg AV Mean 0 mmHg AV Area 0 cm MV Gradient Peak 0 mmHg MV Mean 0 mmHg MV Area 0 cm COMMENTS: Master Control Supervisor: Tia [facility] Medical Language Specialist: 1 Dr. Rosenbaum TAPE# PACS Pericardial Effusion N DATE OF SERVICE: LIMITED ECHOCARDIOGRAM FINDINGS: 1. Left ventricular chamber size is within normal limits. Left ventricular systolic function is normal. Overall ejection fraction is estimated at 55%. 2. Left atrium, right atrium, and right ventricular chamber sizes are within normal limit. 3. Valvular structures have normal structure and motion. ECHOCARDIOGRAM REPORT [id number] SEJAL CHAIREZ 4. Doppler interrogation reveals mild mitral regurgitation and trace tricuspid regurgitation. No other valvular insufficiency or stenosis. Pulmonary systolic pressure is normal, estimated at 21 mmHg. 5. No evidence of pericardial effusion or left ventricular thrombus. TRANSINT:[id number] Voice Confirmation ID: [id number] DOCUMENT ID: [id number] JN ROSENBAUM MD at 1054 CC: [id number] DICTATION DATE: 01/02/19 1149 VETERINARY PARASITOLOGIST: 01/02/19 1215 ADM IN [place] [id number] [place] [id number]
--- NOTE | 2019-01-03 10:55 | CN ---
PATIENT NAME:SEJAL GAONA MEDICAL RECORD: [id number] : 66 LOCATION:D.MS [facility] ADMIT DATE: 12/31/18 ACCOUNT: [id number] CONSULTING PHYSICIAN: JN RAMOS MD REFERRING PHYSICIAN: SUSAN RODRIGUEZ MD DATE OF CONSULTATION: 01/01/2019 CARDIOLOGY CONSULTATION DATE OF SERVICE: 01/01/2019 ADMITTING DIAGNOSES: 1. Hypotension. 2. Coronary artery disease. 3. Recent percutaneous transluminal coronary angioplasty, drug-eluting stent. 4. Diabetes. 5. Chronic obstructive pulmonary disease. 6. Smoking. 7. Opioid use. HISTORY OF PRESENT ILLNESS: Mrs. Gaona presents with hypotension and lethargy. She was just in 12/24/[address] Bar did PTCA stent of the LAD. She has no significant disease of the circumflex, chronic total occlusion of the RCA with filling of left to right collaterals. She had a normal ejection fraction at that time. She was also treated for pneumonia, bronchitis. She has diabetes. She has opioid use. It appears that she possibly had an increased use of her opioids causing her lethargy, shortness of breath. Initially, she was hypotensive, requiring pressors. Her pressors are now being weaned. She has had no further episodes of chest pain or chest discomfort. Her EKG is with no ST-T abnormalities and her troponin is within normal limits. PHYSICAL EXAMINATION: GENERAL APPEARANCE: Well-nourished, well-developed, appears stated age. Level of distress, comfortable. PSYCHIATRIC: Mental status, alert, normal affect. Orientation, oriented to time, place and person. EYES: Lids and conjunctiva, noninjected. No discharge, no pallor. ENT: Lips, teeth, gums, normal dentition. Oropharynx, no cyanosis, no pallor. NECK: Carotid arteries, bilateral normal upstroke, no bruits, no thrills. JUGULAR VEINS: No jugular venous pressure or distention. CERVICAL LYMPH NODES: Nontender, nonenlarged. THYROID: Not enlarged. Nontender. No nodules. LUNGS: Respiratory effort, unlabored. CHEST: Normal curvature. No thoracic deformity. No chest wall tenderness. Percussion, resonant. Auscultation, clear. No wheezes, no rales, no rhonchi. CARDIOVASCULAR: Precordial exam, nondisplaced. No heaves or pericardial thrills. Rate and rhythm, regular. Heart sounds, normal S1, normal S2. No S3, no gallop, no rub. Systolic murmur, not heard. Diastolic murmur, not heard. EXTREMITIES: No cyanosis, no edema. Peripheral pulses, full and equal in all extremities, except as noted. No bruits appreciated. ABDOMEN: Soft, nondistended. Normal aorta. No bruit. Nontender. No masses. Liver, nontender, no hepatomegaly. Spleen, nontender, no splenomegaly. MUSCULOSKELETAL: No joint tenderness. No joint swelling. No erythema. NEUROLOGICAL: Normal gait, normal strength, normal tone. CONSULT REPORT [id number] SEJAL GAONA SKIN: Warm and dry. OVERALL IMPRESSION: Hypotension. At this time, we will get an echocardiogram to assure that her ejection fraction is still in the normal range. She does not have acute pericardial effusion, otherwise no other cardiac workup or treatment is necessary. TRANSINT:[id number] Voice Confirmation ID: [id number] DOCUMENT ID: [id number] JN RAMOS MD at 1055 CC: [id number] DICTATION DATE: 01/01/19 1153 MANAGER REGIONAL SALES: 01/01/19 1240 [place] [address]
[2019-01-03 13:52] VITALS: BP 109/67
--- NOTE | 2019-01-03 16:57 | NUR ---
PATIENT GIVEN 16U INSULING FOR BLOOD SUGAR 356. DENIES NEEDS AT THIS TIME. WILL CONTINUE TO MONITOR.
[2019-01-03 17:17] VITALS: BP 132/64
--- NOTE | 2019-01-03 20:10 | NUR ---
PT RESTING IN BED. ALERT AND ORINTED. NO SIGNS OF DISTRESS. BREATHING EVEN AND UNLABORED. PT STATES NO PROBLEMS AT THIS TIME. NO IV SITE PT REFUSES. BOWEL SOUNDS ACTIVE. SKIN CLEAN DRY AND INTACT. NO LOWER LEG SWELLING PRESENT. SCDS ON. WILL CONTINUE PLAN OF CARE. CALL LIGHT IN REACH. BED LOWERED AND LOCKED. BED RAILS UP X1.
--- NOTE | 2019-01-03 21:00 | NUR ---
FSBS 235 8 UNITS OF INSULIN GIVEN PER SS.
--- NOTE | 2019-01-04 04:45 | NUR ---
I have reviewed this patient and I concur with the Shift Assessment completed by the Licensed Practical Nurse today this shift.
[2019-01-04 05:54] VITALS: BP 98/50
[2019-01-04 06:02] LABS: BASOPHILS 0.4 % (0-2); EOSINOPHILS 1.9 % (0-7); HEMATOCRIT 41.7 % (36.0-48.0); HEMOGLOBIN 14.1 g/dL (12-16); IMMATURE GRANULOCYTES 1.7 % (0-5); LYMPHOCYTES 32.5 % (15-50); MCH 31.9 pg (26.0-34.0); MCHC 33.8 g/dL (31.0-37.0); MCV 94.3 fL (80.0-100.0); MONOCYTES 14.9 % (2-11); NEUTROPHILS 48.6 % (40-80); PLATELET COUNT 133 10x3/uL (130-400); RBC 4.42 10x6/uL (4.00-5.40); RDW 13.6 % (11.5-14.5); WBC 5.3 10x3/uL (4.8-10.8)
[2019-01-04 06:27] LABS: ALBUMIN 2.6 g/dL (3.4-5.0); ANION GAP 7.8 mmol/L (8-16); BILIRUBIN - TOTAL 0.3 mg/dL (0.2-1.3); CALCIUM 8.6 mg/dL (8.5-10.1); CREATININE - SERUM 0.9 mg/dL (0.6-1.3); POTASSIUM - SERUM 4.8 mmol/L (3.5-5.1); PROTEIN - SERUM 5.6 g/dL (6.4-8.2)
--- NOTE | 2019-01-04 07:25 | NUR ---
FSBS 256 10 UNITS OF INSULIN GIVEN PER SS.
--- NOTE | 2019-01-04 08:00 | NUR ---
PATIENT ALERT AND ORIENTED X 3. LUNGS CLEAR IN ALL HURST BILATERALLY. HEART SOUNDS HEARD IN ALL HURST. HR REGULAR RATE AND RHYTHM. STATES PAIN 8/10. GIVEN SCHEDULED TRAMADOL. DENIES FURTHER NEEDS AT THIS TIME. AM MEDS GIVEN. STATES READY TO DISCHARGE. WILL CONTINUE TO MONITOR.
--- NOTE | 2019-01-04 08:41 | NUR ---
STATES PAIN DECREASED TO 4/10 AFTER TRAMADOL. WILL CONTINUE TO MONITOR.
[2019-01-04 09:46] VITALS: BP 98/58
[2019-01-04] MEDS ORDERED: LEVOFLOXACIN500 MG PO (10:33)
--- NOTE | 2019-01-04 11:31 | MORECARE ---
CASE MANAGEMENT DISCHARGE SUMMARY PATIENT: SEJAL CHAIREZ UNIT: [id number] ADM DATE: 12/31/18 AGE: 48 : 66 SEX: F ROOM/BED: D.2214 AUTHOR: ANA FARAH PHYSICIAN: REFERRING PHYSICIAN: SUSAN RODRIGUEZ MD DATE OF SERVICE: 01/04/19 Discharge Plan Patient Name: SEJAL CHAIREZ Facility: [facility]:[place] : 1970 Planned Disposition: Home Anticipated Discharge Date: Discharge Date: Expected LOS: Initial Reviewer: [email or web address] Initial Review Date: 12/31/2018 Generated: 01/04/19 12:31 pm Comments DCP- Discharge Planning Updated by [email or web address]: Inessa Juarez on 01/03/19 2:[address] attempted to see the patient, but she was sleeping will try again at a later date DCPIA - Discharge Planning Initial Assessment Updated by [email or web address]: Inessa Juarez on 01/04/19 11:31 am * Is the patient Alert and Oriented? Yes * How many steps to enter\exit or inside your home? * PCP KATHRYN DURANN * Pharmacy [address] * Preadmission Environment Home with Family * ADLs Independent * Equipment Nebulizer * List name and contact numbers for known caregivers / representatives who currently or will assist patient after discharge: YAO (DAUGHTER) [phone] * Verbal permission to speak to the caregivers and representatives has been obtained from the patient. N/A * Community resources currently utilized None * Additional services required to return to the preadmission environment? No * Can the patient safely return to the preadmission environment? Yes * Has this patient been hospitalized within the prior 30 days at any hospital? Yes Patient Name: SEJAL CHAIREZ Page [phone] at 1131 All edits/amendments must be made on the electronic document DICTATION DATE: 01/04/19 1131 JAVA PORTAL DEVELOPER: FLAKITA 01/04/19 1131 RPT#: [id number] DC DATE: STATUS: ADM IN [facility] [address] [place] [address] END OF REPORT
--- NOTE | 2019-01-04 11:39 | MORECARE ---
CASE MANAGEMENT DISCHARGE SUMMARY PATIENT: SEJAL CHAIREZ UNIT: [id number] ADM DATE: 12/31/18 AGE: 48 : 66 SEX: F ROOM/BED: D.2214 AUTHOR: SOFIDOC PHYSICIAN: REFERRING PHYSICIAN: SUSAN RODRIGUEZ MD DATE OF SERVICE: 01/04/19 Discharge Plan Patient Name: SEJAL CHAIREZ Facility: [facility]:[place] : 1970 Planned Disposition: Home Anticipated Discharge Date: Discharge Date: Expected LOS: Initial Reviewer: [email or web address] Initial Review Date: 12/31/2018 Generated: 01/04/19 12:39 pm Comments DCP- Discharge Planning Updated by [email or web address]: Inessa Juarez on 01/04/19 10:[address] Patient Name: SEJAL CHAIREZ Admission Status: ER Accout number: [id number] Admission Date: 12-31-2018 : 1970 Admission Diagnosis: Attending: SUSAN RODRIGUEZ Current LOS: 4 Anticipated DC Date: Planned Disposition: Home Primary Insurance: [employer] MANAGED MEDICAID Discharge Planning Comments: CM met with patient to complete initial dc planning assessment. CM educated patient on the CM role and verbal consent given by patient to complete assessment. Patient lives at home with her children where she is independent with her care. At discharge patient plans to return home and feels this is a safe discharge. CM discussed availability of home health, rehab services, and medical equipment. She has a nebulizer and did not want home health. Patient denied known discharge needs at this time. She stated that her daughter, Yao will be driving her home today. CM will continue to follow and will assist as needed with dc plans/needs. Pegger Dobby Looms: Inessa Juarez DCP- Discharge Planning Updated by [email or web address]: Inessa Juarez on 01/03/19 2:[address] attempted to see the patient, but she was sleeping will try again at a later date DCPIA - Discharge Planning Initial Assessment Updated by [email or web address]: Inessa Juarez on 01/04/19 11:31 am * Is the patient Alert and Oriented? Yes * How many steps to enter\exit or inside your home? * PCP KATHRYN AGUIAR APN * Pharmacy [facility] [facility] * Preadmission Environment Home with Family * ADLs Independent * Equipment Nebulizer * List name and contact numbers for known caregivers / representatives who currently or will assist patient after discharge: YAO (DAUGHTER) [phone] * Verbal permission to speak to the caregivers and representatives has been obtained from the patient. N/A * Community resources currently utilized None * Additional services required to return to the preadmission environment? No * Can the patient safely return to the preadmission environment? Yes * Has this patient been hospitalized within the prior 30 days at any hospital? Yes Last DP export: 01/04/19 10:31 a Patient Name: SEJAL CHAIREZ Page [phone] at 1139 All edits/amendments must be made on the electronic document DICTATION DATE: 01/04/191137 PRINCIPAL CLERK: FLAKITA 01/04/198 RPT#: [id number] DC DATE: STATUS: ADM IN [facility] [address] [place] [address] END OF REPORT
--- NOTE | 2019-01-04 12:33 | NUR ---
PATIENT DICHARGED TO HOME WITH SON IN LAW. ALL BELONGINGS SENT HOME WITH PATIENT. DISCHARGE EDUCATION PROVIDED VERBALLY AND WRITTEN. PATIENT VERBALIZED UNDERSTANDING. VITALS STABLE AT DISCHARGE. INSULIN SENT HOME WITH PATIENT. DENIED FURTHER QUESTIONS.
== END 2019-01-04 13:40 | disposition home or self-care (01) | DRG 91 ==
LOC: D.ER 11:20 → D.ICU 13:51 → D.MS 13:51
PROVIDERS: Family Medicine; ADMIT Emergency Medicine; ATTEND Emergency Medicine
DX: G92 Toxic encephalopathy (principal); J96.01 Acute respiratory failure with hypoxia; J18.9 Pneumonia, unspecified organism; I50.22 Chronic systolic (congestive) heart failure; R41.82 Altered mental status, unspecified; I95.9 Hypotension, unspecified; J44.9 Chronic obstructive pulmonary disease, unspecified; E11.65 Type 2 diabetes mellitus with hyperglycemia

== ENCOUNTER 2019-01-14 18:08 | Emergency (ER) | payer OTHER ==
[~2019-01-14] VITALS: Ht 172.7 cm; Wt 88.2 kg
[~2019-01-14 18:08] MED LIST changes: +LASIX40 MG PO
[2019-01-14 18:58] VITALS: Ht 172.7 cm; Wt 88.2 kg
[2019-01-14] MEDS ORDERED: CLEOCIN HCL300 MG PO (20:29)
[2019-01-14] MEDS ORDERED: PREDNISONE20 MG PO (20:29)
[2019-01-14] MEDS ORDERED: HYDROCODON-ACE1 EAC7 PO (20:31)
[2019-01-14 21:35] VITALS: BP 138/78
== END 2019-01-14 21:35 | disposition home or self-care (01) ==
LOC: D.ER 18:08
DX: K05.20 Aggressive periodontitis, unspecified (principal); M77.9 Enthesopathy, unspecified

== ENCOUNTER → 2019-02-22 09:57 | Outpatient (CLI) | payer OTHER ==
[~2019-02-22 09:57] MED LIST changes: +CLEOCIN HCL300 MG PO; +HYDROCODON-ACE1 EAC7 PO; +PREDNISONE20 MG PO
== END | disposition home or self-care (01) ==
LOC: D.MRI 09:57
DX: M66.821 Spontaneous rupture of other tendons, right upper arm (principal)

== ENCOUNTER → 2019-02-24 08:38 | Outpatient (CLI) | payer OTHER ==
[2019-01-14 18:58] VITALS: BMI 29.5
== END | disposition home or self-care (01) ==
LOC: D.US 08:38
PROVIDERS: ATTEND Surgery
DX: I83.819 Varicose veins of unspecified lower extremity with pain (principal)

== ENCOUNTER → 2019-03-11 10:56 | Outpatient (CLI) | payer OTHER ==
[2019-01-14 18:58] VITALS: BMI 29.5
== END | disposition home or self-care (01) ==
LOC: D.US 10:56
PROVIDERS: ATTEND Surgery
DX: I83.819 Varicose veins of unspecified lower extremity with pain (principal)

== ENCOUNTER 2019-05-01 12:56 | Emergency (ER) | payer OTHER ==
[~2019-05-01] VITALS: Ht 172.7 cm; Wt 95.5 kg
[2019-05-01 13:00] VITALS: Ht 172.7 cm; Wt 95.5 kg
[2019-05-01 13:30] LABS: BASOPHILS 0.6 % (0-2); EOSINOPHILS 1.8 % (0-7); HEMATOCRIT 45.7 % (36.0-48.0); HEMOGLOBIN 16.7 g/dL (12-16); IMMATURE GRANULOCYTES 1.3 % (0-5); LYMPHOCYTES 25.6 % (15-50); MCHC 36.5 g/dL (31.0-37.0); MCV 93.1 fL (80.0-100.0); MEAN PLATELET VOLUME 11.1 fL (7.4-10.4); MONOCYTES 8.7 % (2-11); PLATELET COUNT 142 10x3/uL (130-400); RBC 4.91 10x6/uL (4.00-5.40); RDW 12.8 % (11.5-14.5); WBC 8.5 10x3/uL (4.8-10.8)
[2019-05-01 13:39] LABS: APTT 29.1 SECONDS (22.8-39.4); INR 0.97 (0.85-1.17); PROTIME 12.4 SECONDS (11.6-15.0)
[2019-05-01 13:44] LABS: ALBUMIN 3.3 g/dL (3.4-5.0); ALKALINE PHOSPHATASE 79 U/L (46-116); ALT (SGPT) 25 U/L (10-68); BILIRUBIN - TOTAL 0.38 mg/dL (0.2-1.3); CALC OSMOLALITY 287 mosm/kg (275-300); CALCIUM 8.7 mg/dL (8.5-10.1); CARBON DIOXIDE 27.8 mmol/L (21.0-32.0); CHLORIDE - SERUM 104 mmol/L (98-107); CREATININE - SERUM 0.6 mg/dL (0.6-1.3); GLUCOSE 253 mg/dL (74-106); POTASSIUM - SERUM 4.3 mmol/L (3.5-5.1); PROTEIN - SERUM 6.9 g/dL (6.4-8.2); SODIUM 139 mmol/L (136-145); UREA NITROGEN 16 mg/dL (7-18); eGFR NON AFRICAN AMERICAN > 90 mL/min (90-120)
[2019-05-01 13:55] LABS: CREATINE KINASE 46 UL (21-215); MAGNESIUM - SERUM 1.9 mg/dL (1.8-2.4); TROPONIN-I < 0.017 ng/mL (0.000-0.060)
[2019-05-01 15:17] LABS: UDS - AMPHET NEGATIVE QUAL (NEGATIVE); UDS - BARB NEGATIVE QUAL (NEGATIVE); UDS - BENZO NEGATIVE QUAL (NEGATIVE); UDS - COCAINE NEGATIVE QUAL (NEGATIVE); UDS - OPIATE NEGATIVE QUAL (NEGATIVE); UDS - PCP NEGATIVE QUAL (NEGATIVE); UDS - THC NEGATIVE QUAL (NEGATIVE)
[2019-05-01 16:30] VITALS: BP 122/84
== END 2019-05-01 16:32 | disposition home or self-care (01) ==
LOC: D.ER 12:56
PROVIDERS: Emergency Medicine
DX: R07.9 Chest pain, unspecified (principal); I25.10 Atherosclerotic heart disease of native coronary artery without angina pectoris; E11.65 Type 2 diabetes mellitus with hyperglycemia

== ENCOUNTER 2019-06-12 15:18 | Emergency (ER) | payer OTHER ==
[~2019-06-12] VITALS: Ht 172.7 cm; Wt 95.5 kg
[2019-06-12 15:21] VITALS: Ht 172.7 cm; Wt 95.5 kg
[2019-06-12] MEDS ORDERED: ULTRAM50 MG PO (16:32)
[2019-06-12 17:00] VITALS: BP 138/79
== END 2019-06-12 17:01 | disposition home or self-care (01) ==
LOC: D.ER 15:18
DX: S80.02XA Contusion of left knee, initial encounter (principal); S50.01XA Contusion of right elbow, initial encounter; W18.30XA Fall on same level, unspecified, initial encounter; Y93.89 Activity, other specified; Y92.89 Other specified places as the place of occurrence of the external cause; S93.402A Sprain of unspecified ligament of left ankle, initial encounter

== ENCOUNTER 2020-04-23 01:58 | Inpatient (IN) | payer OTHER ==
[~2020-04-23] VITALS: Ht 172.7 cm; Wt 102.0 kg
[2020-04-23] MEDS ORDERED: IPRAT-ALBUT 0.5-3 ML UPD (02:13)
[2020-04-23] MEDS ORDERED: ASPIRIN81 MG PO (02:14)
[2020-04-23] MEDS ORDERED: LANTUS SOLOSTAR3 ML SC (02:16)
[2020-04-23] MEDS ORDERED: FUROSEMIDE20 MG PO ×2 (02:17→04:47)
[2020-04-23] MEDS ORDERED: TOPAMAX50 MG (02:17)
[2020-04-23] MEDS ORDERED: ALBUTEROL SULF8.5 GM INH (02:18)
[2020-04-23] MEDS ORDERED: INCRUSE INHALER (02:18)
[2020-04-23] MEDS ORDERED: BREO ELLIPTA 11 EACH INH (02:18)
[2020-04-23] MEDS ORDERED: SPIRIVA18 MCG INH (02:19)
[2020-04-23 02:34] LABS: BASOPHILS 0.4 % (0-2); EOSINOPHILS 1.8 % (0-7); HEMATOCRIT 45.4 % (36.0-48.0); HEMOGLOBIN 15.6 g/dL (12-16); IMMATURE GRANULOCYTES 0.6 % (0-5); LYMPHOCYTES 26.7 % (15-50); MCH 33.3 pg (26.0-34.0); MCHC 34.4 g/dL (31.0-37.0); MCV 96.8 fL (80.0-100.0); MEAN PLATELET VOLUME 11.2 fL (7.4-10.4); NEUTROPHILS 62.5 % (40-80); PLATELET COUNT 154 10x3/uL (130-400); RBC 4.69 10x6/uL (4.00-5.40); RDW 13.5 % (11.5-14.5); WBC 8.9 10x3/uL (4.8-10.8)
[2020-04-23 02:42] LABS: CALC OSMOLALITY 286 mosm/kg (275-300); CALCIUM 8.2 mg/dL (8.5-10.1); CARBON DIOXIDE 26.9 mmol/L (21.0-32.0); CHLORIDE - SERUM 106 mmol/L (98-107); CREATININE - SERUM 1.4 mg/dL (0.6-1.3); GLUCOSE 200 mg/dL (74-106); POTASSIUM - SERUM 4.2 mmol/L (3.5-5.1); SODIUM 139 mmol/L (136-145); UREA NITROGEN 22 mg/dL (7-18); eGFR NON AFRICAN AMERICAN 42 mL/min (90-120)
[2020-04-23 02:58] LABS: ALBUMIN 3.2 g/dL (3.4-5.0); ALKALINE PHOSPHATASE 77 U/L (30-120); ALT (SGPT) 20 U/L (10-68); BILIRUBIN - TOTAL 0.18 mg/dL (0.2-1.3); CREATINE KINASE 44 UL (21-215); PRO BNP 444 pg/mL (0-125); PROTEIN - SERUM 6.6 g/dL (6.4-8.2); TROPONIN-I 0.019 ng/mL (0.000-0.060)
[2020-04-23 04:55] VITALS: BP 129/61; BMI 34.2
--- NOTE | 2020-04-23 07:00 | NUR ---
A&O X4. UP AD BETY. NO C/O PAIN. NO S/S OF ACUTE DISTRESS NOTED. BLE EDEMA 1+. ON 2L O2, NC. IV LEFT FOREARM, SL. SITE PATENT WITHOUT REDNESS OR SWELLING. DAILY WEIGHT. ACHS. DENIES ANY NEEDS AT THIS TIME. CALL LIGHT IN REACH. WILL CONTINUE TO MONITOR.
--- NOTE | 2020-04-23 08:01 | NUR ---
PATIENT IS WITHOUT DISTRESS.CALL LIGHT IN REACH. FALL PREVENTION IN PLACE
[2020-04-23 08:27] VITALS: BP 114/41
--- NOTE | 2020-04-23 09:52 | NUR ---
THIS NURSE CALLED PHARMACY X2 FOR 2 MEDS ON PT'S EMAR PRECOSE AND TAMOXIFEN. STILL HAVE NOT RECEIVED MEDS, AND ONE MED WAS DUE AT 0800.
[2020-04-23 12:41] VITALS: BP 136/65
[2020-04-23 15:35] VITALS: Ht 172.7 cm; Wt 102.0 kg
[2020-04-23 16:46] VITALS: BP 121/42
--- NOTE | 2020-04-23 18:56 | NUR ---
A&O RESTING IN BED WITH EYES OPEN. NO C/O PAIN. NO S/S OF ACUTE DISTRESS NOTED. DENIES ANY NEEDS AT THIS TIME. CALL LIGHT IN REACH. WILL CONTINUE TO MONITOR.
[2020-04-23 21:00] VITALS: BP 145/59
--- NOTE | 2020-04-23 22:29 | NUR ---
IV RESITED TO RIGHT FOREARM 22 KATHYA PER PROTOCAL FSBS 441 COVERED WITH 20 UNITS PER S/S CALL TO DELIVERY ROOM SUPERVISOR NEW ORDER TO CGANG FSBS FROM AC&HS TO EVERY 4 HOURS. PATIENT INFORMED
[2020-04-24] VITALS (7 sets, daily range): BP systolic 89–140; BP diastolic 43–62
--- NOTE | 2020-04-24 00:36 | NUR ---
FSBS 460 RECHECK FSBS 445 GAVE 20 UNITS S/S AND CALLED HAZARD[facility] WASTE MANAGEMENT SPECIALIST PER ORDER. NEW ORDERS LAB TO DRAW GLUCOSE LEVEL CHANGE FSBS S/S FROM INTERMEDIATE TO HIGH RESISTANCE SCALE CHANGE LANTUS FROM 25 UNITS AT HS TO BID NICODERM PATCH 14MG/24HR PATIENT EDUCATED ON NEW ORDERS AND AGREAD WITH ORDERS.
[2020-04-24 05:09] LABS: BASOPHILS 0.1 % (0-2); EOSINOPHILS 0 % (0-7); HEMATOCRIT 46.4 % (36.0-48.0); HEMOGLOBIN 15.6 g/dL (12-16); IMMATURE GRANULOCYTES 0.2 % (0-5); LYMPHOCYTES 6.7 % (15-50); MCH 32.2 pg (26.0-34.0); MCHC 33.6 g/dL (31.0-37.0); MCV 95.7 fL (80.0-100.0); MONOCYTES 2.5 % (2-11); NEUTROPHILS 90.5 % (40-80); PLATELET COUNT 160 10x3/uL (130-400); RBC 4.85 10x6/uL (4.00-5.40); RDW 13.4 % (11.5-14.5)
[2020-04-24 05:17] LABS: WBC 14.7 10x3/uL (4.8-10.8)
[2020-04-24 05:22] LABS: APTT 30.4 SECONDS (22.8-39.4); INR 0.99 (0.85-1.17); PROTIME 13.1 SECONDS (11.6-15.0)
[2020-04-24 05:23] LABS: D-DIMER-QUANTITATIVE 0.31 ug/mLFEU (0.20-0.54)
[2020-04-24 05:32] LABS: ANION GAP 13.2 mmol/L (8-16); CALCIUM 8.6 mg/dL (8.5-10.1); CARBON DIOXIDE 26.6 mmol/L (21.0-32.0); CREATININE - SERUM 1.1 mg/dL (0.6-1.3); PHOSPHOROUS 3.6 mg/dL (2.5-4.9); POTASSIUM - SERUM 3.8 mmol/L (3.5-5.1)
[2020-04-24 05:40] LABS: BILIRUBIN NEGATIVE (NEGATIVE); GLUCOSE 1000 mg/dL (NEGATIVE); KETONE NEGATIVE (NEGATIVE); NITRITE NEGATIVE (NEGATIVE); SPECIFIC GRAVITY 1.015 (1.005-1.020); UROBILINOGEN NORMAL (NORMAL)
--- NOTE | 2020-04-24 07:05 | NUR ---
PATIENT ALERT AND ORIENTED. SITTING UP IN BED. RESPIRATIONS EVEN NON LABORED. NO SIGNS OF DISTRESS NOTED. DENIES FUTHER NEEDS. SIDE RAILS UP. CALL LIGHT IN REACH. WILL CONTINUE TO MONITOR FOR SAFETY.
--- NOTE | 2020-04-24 09:54 | NUR ---
PATIENT ALERT AND ORIENTED. SITTING IN BED. RESPIRATIONS EVEN NON LABORED. NO SIGNS OF DISTRESS NOTED. RIGHT ARM SALINE LOCK. ON ROOM AIR. DENIES FURTHER NEEDS. SIDE RAILS UPX3. CALL LIGHT IN REACH. WILL CONTINUE TO MONITOR.
--- NOTE | 2020-04-24 17:59 | NUR ---
PATIENT STATED "SHE WAS HAVING SHORTNESS OF BREATH." O2 SAT WAS 96 ON RA. O2 ON 1L. STILL STATED SHE WAS "SOB." RESPIRATORY NOTIFED. NO S/S OF DISTRESS. DENIES FURTHER NEEDS. SIDE RAILS UP X3. CALL LIGHT IN REACH. WILL COMTINUE TO MONITOR FOR SAFETY.
--- NOTE | 2020-04-24 18:55 | NUR ---
PATIENT SITTING UP IN BED WATCHING TV. RESPIRATIONS EVEN NON LABORED. NO SIGNS OF DISTRESS NOTED. DENIES FURTHER NEEDS. SIDE RAILS UP X2. CALL LIGHT IN REACH. WILL CONTINUE TO MONITOR FOR SAFETY.
--- NOTE | 2020-04-25 02:49 | NUR ---
I have reviewed this patient and I concur with the Shift Assessment completed by the Licensed Practical Nurse today this shift.
[2020-04-25 05:25] VITALS: BP 116/47
[2020-04-25 06:56] LABS: CARBON DIOXIDE 27.4 mmol/L (21.0-32.0); CHLORIDE - SERUM 101 mmol/L (98-107); MAGNESIUM - SERUM 2.3 mg/dL (1.8-2.4); PHOSPHOROUS 3.4 mg/dL (2.5-4.9); POTASSIUM - SERUM 3.7 mmol/L (3.5-5.1); SODIUM 138 mmol/L (136-145); eGFR NON AFRICAN AMERICAN 80 mL/min (90-120)
[2020-04-25 06:59] LABS: CALC OSMOLALITY 287 mosm/kg (275-300); CREATININE - SERUM 0.8 mg/dL (0.6-1.3); GLUCOSE 206 mg/dL (74-106); UREA NITROGEN 29 mg/dL (7-18)
[2020-04-25 07:41] LABS: BASOPHILS 0.1 % (0-2); EOSINOPHILS 0.1 % (0-7); HEMATOCRIT 46.9 % (36.0-48.0); HEMOGLOBIN 15.6 g/dL (12-16); IMMATURE GRANULOCYTES 0.7 % (0-5); MCH 32.3 pg (26.0-34.0); MCHC 33.3 g/dL (31.0-37.0); MCV 97.1 fL (80.0-100.0); MEAN PLATELET VOLUME 11.6 fL (7.4-10.4); MONOCYTES 6.7 % (2-11); NEUTROPHILS 71.4 % (40-80); PLATELET COUNT 174 10x3/uL (130-400); RBC 4.83 10x6/uL (4.00-5.40); RDW 13.8 % (11.5-14.5); WBC 14.9 10x3/uL (4.8-10.8)
[2020-04-25 08:00] VITALS: BP 131/55
--- NOTE | 2020-04-25 08:06 | NUR ---
PAITENT ALERT AND ORIENTED. SITTING UP IN BED. RESPIRATIONS EVEN NON LABORED. NO SIGNS OF DISTRESS NOTED. PATIENT UP ADLIB. ON ROOM AIR. DENIES FURTHER NEEDS. SIDE RAILS UP X3. CALL LIGHT IN REACH. WILL CONTINUE TO MONITOR FOR SAFETY.
--- NOTE | 2020-04-25 11:24 | NUR ---
I have reviewed this patient and I concur with the Shift Assessment completed by the Licensed Practical Nurse today this shift.
[2020-04-25 12:42] VITALS: BP 111/51
--- NOTE | 2020-04-25 13:55 | NUR ---
PATIENT RESTING QUITELY IN BED. TELEMERTY 106 SINUS TACH. RESPIRATIONS EVEN NON LABORED. NO SIGNS OF DISTRESS NOTED. AM MEDS TOLERATED WELL. DENIES FURTHER NEEDS. SIDE RAILS UP X3. CALL LIGHT IN REACH. WILL CONTINUE TO MONITOR FOR SAFETY.
--- NOTE | 2020-04-25 14:00 | NUR ---
NUTRITION FOLLOW UP: INTERVIEW: Met with patient. She stated that her appetite has been okay. She has been eating 100% of her meals. She denied recent N/V/D/C and chewing/swallowing issues. DIET: ADA/AHA Diet SUPPLEMENT: None at this time PO INTAKE: 100% x 6 meals WEIGHT: 224.8 lbs on 04/23 BM: x 1 on 04/23 SIG MEDS: Lantus, Pepcid, Lovenox, Humalog, Bumex SIG LABS: BUN- 29(H), Albumin- 3.2(L) RD to continue to monitor and follow patient DHS
[2020-04-25 16:00] VITALS: BP 113/47
--- NOTE | 2020-04-25 18:22 | NUR ---
PATIENT SITTING UP IN BED. WATCHING TV. RESPIRATIONS EVEN NON LABORED. NO SIGNS OF DISTRESS NOTED. DENIES FURTHER NEEDS. SIDE RAILS UP X2. CALL LIGHT IN REACH. WILL CONTINUE TO MONITOR FOR SAFETY.
[2020-04-25 20:00] VITALS: BP 141/56
--- NOTE | 2020-04-25 20:00 | NUR ---
PATIENT SITTING UP IN BED PLAYING ON PERSONAL COMPUTER. NO S/S OF ACUTE DISTRESS. NO C/O AT THIS TIME. PATIENT HAS A RIGHT FOREARM, SALINE LOC. IV IS PATENT WITHOUT REDNESS, SWELLING, OR TENDERNESS. PATIENT IS ON TELEMETRY: 104 SINUS TACH. PATIENT IS UP ADLIB. CALL LIGHT WITHIN REACH. WILL CONTINUE TO MONITOR.
--- NOTE | 2020-04-26 03:15 | NUR ---
I have reviewed this patient and I concur with the Shift Assessment completed by the Licensed Practical Nurse today this shift.
[2020-04-26 04:00] VITALS: BP 125/53
[2020-04-26 05:31] LABS: BASOPHILS 0.1 % (0-2); EOSINOPHILS 1.1 % (0-7); HEMATOCRIT 46.3 % (36.0-48.0); HEMOGLOBIN 15.3 g/dL (12-16); IMMATURE GRANULOCYTES 1.3 % (0-5); LYMPHOCYTES 16.2 % (15-50); MCH 32.3 pg (26.0-34.0); MCV 97.7 fL (80.0-100.0); MEAN PLATELET VOLUME 11.1 fL (7.4-10.4); MONOCYTES 4.3 % (2-11); PLATELET COUNT 166 10x3/uL (130-400); RBC 4.74 10x6/uL (4.00-5.40); RDW 13.6 % (11.5-14.5)
[2020-04-26 05:37] LABS: WBC 9.3 10x3/uL (4.8-10.8)
[2020-04-26 05:49] LABS: ANION GAP 11.1 mmol/L (8-16); CALCIUM 8.5 mg/dL (8.5-10.1); CARBON DIOXIDE 30.5 mmol/L (21.0-32.0); MAGNESIUM - SERUM 2.3 mg/dL (1.8-2.4)
[2020-04-26 06:07] LABS: CREATININE - SERUM 1.2 mg/dL (0.6-1.3); PHOSPHOROUS 4.8 mg/dL (2.5-4.9); POTASSIUM - SERUM 4.6 mmol/L (3.5-5.1)
[2020-04-26 09:15] VITALS: BP 114/40
--- NOTE | 2020-04-26 09:50 | NUR ---
ASSESSMENT PER FLOW SHEET. PATIENT IS WITHOUT DISTRESS. SHE IS SITTING UP AT BEDSIDE TALKING WITH FAMILY. CALL LIGHT IN REACH
[2020-04-26] MEDS ORDERED: VIBRAMYCIN 100100 MG PO (11:55)
[2020-04-26] MEDS ORDERED: TESSALON PERLE100 MG PO (11:55)
[2020-04-26] MEDS ORDERED: MUCINEX600 MG PO (11:56)
[2020-04-26] MEDS ORDERED: FLUTICASONE PRO16 GM NASAL (11:56)
[2020-04-26] MEDS ORDERED: PREDNISONE10 MG PO (11:56)
--- NOTE | 2020-04-26 12:12 | MORECARE ---
CASE MANAGEMENT DISCHARGE SUMMARY PATIENT: SEJAL CHAIREZ K UNIT: [id number] ADM DATE: 04/23/20 AGE: 49 : 66 SEX: F ROOM/BED: D.2223 AUTHOR: SOFIDOC PHYSICIAN: REFERRING PHYSICIAN: MARY SAHNI MD DATE OF SERVICE: 04/26/20 Discharge Plan Patient Name: SEJAL CHAIREZ [facility] [facility] 1970 Planned Disposition: Home Anticipated Discharge Date: Discharge Date: Expected LOS: Initial Reviewer: [email or web address] Initial Review Date: 04/23/2020 Generated: 04/26/20 1:12 pm DCPIA - Discharge Planning Initial Assessment Updated by [email or web address]: Mellisa Willams on 04/26/20 12:12 pm * Is the patient Alert and Oriented? Yes * PCP KATHRYN * [facility] * Preadmission Environment Home with Family * ADLs Independent * Other Equipment NEBS, CANE * Community resources currently utilized None * Additional services required to return to the preadmission environment? No * Can the patient safely return to the preadmission environment? Yes * Has this patient been hospitalized within the prior 30 days at any hospital? No Patient Name: SEJAL CHAIREZ Page [phone] at 1212 All edits/amendments must be made on the electronic document DICTATION DATE: 04/26/20 1212 VISITOR SERVICES ASSOCIATE: FLAKITA 04/26/20 1212 RPT#: [id number] DC DATE: STATUS: ADM IN [facility] [address] [place] [address] END OF REPORT
--- NOTE | 2020-04-26 12:19 | MORECARE ---
CASE MANAGEMENT DISCHARGE SUMMARY PATIENT: SEJAL CHAIREZ UNIT: [id number] ADM DATE: 04/23/20 AGE: 49 : 66 SEX: F ROOM/BED: D.2223 AUTHOR: ANA FARAH PHYSICIAN: REFERRING PHYSICIAN: MARY SAHNI MD DATE OF SERVICE: 04/26/20 Discharge Plan Patient Name: SEJAL CHAIREZ Facility: [facility]:[place] : 1970 Planned Disposition: Home Anticipated Discharge Date: Discharge Date: Expected LOS: Initial Reviewer: [email or web address] Initial Review Date: 04/23/2020 Generated: 04/26/20 1:19 pm Comments DCP- Discharge Planning Updated by [email or web address]: Mellisa Willams on 04/26/20 11:[address] Patient Name: SEJAL CHAIREZ Admission Status: ER Accout number: [id number] Admission Date: 04-23-2020 : 1970 Admission Diagnosis:SHORTNESS OF BREATH Attending: BORA, Current LOS: 3 Anticipated DC Date: Planned Disposition: Home Primary Insurance: [employer] MANAGED MEDICAID Discharge Planning Comments: CM met with patient at bedside after explaining CM role and obtaining verbal consent. CM discussed availability / needs of home health, REHAB and medical equipment. PATIENT DENIES ANY DISCHARGE NEEDS. FAMILY HERE TO DRIVE HOME AT TIME OF DISCHARGE. Bead Stringer: Mellisa Willams DCPIA - Discharge Planning Initial Assessment Updated by [email or web address]: Mellisa Willams on 04/26/20 12:12 pm * Is the patient Alert and Oriented? Yes * PCP KATHRYN * [facility] * Preadmission Environment Home with Family * ADLs Independent * Other Equipment NEBS, CANE * Community resources currently utilized None * Additional services required to return to the preadmission environment? No * Can the patient safely return to the preadmission environment? Yes * Has this patient been hospitalized within the prior 30 days at any hospital? No Last DP export: 04/26/20 11:12 am Patient Name: SEJAL CHAIREZ Page 42269 at 1219 All edits/amendments must be made on the electronic document DICTATION DATE: 04/26/201218 SEARCH MANAGER: FLAKITA 04/26/201218 RPT#: [id number] DC DATE: STATUS: ADM IN [facility] [address] [place] [address] END OF REPORT
[2020-04-26 12:36] VITALS: BP 141/65
--- NOTE | 2020-04-26 14:00 | NUR ---
DISCHARGE INSTRUCTIONS,STATES UNDERSTANDING. IV DCD WITH CATH TIP INTACT. PATIENT IS WAITING ON RIDE FOR TRANSPORT HOME
--- NOTE | 2020-04-26 14:27 | NUR ---
LEFT UNIT VIA WHEELCHAIR FOR TRANSPORT HOME
--- NOTE | 2020-04-26 17:33 | MORECARE ---
CASE MANAGEMENT DISCHARGE SUMMARY PATIENT: SEJAL CHAIREZ UNIT: [id number] ADM DATE: 04/23/20 AGE: 49 : 66 SEX: F ROOM/BED: D.2223 AUTHOR: ANA FARAH PHYSICIAN: REFERRING PHYSICIAN: MARY SAHNI MD DATE OF SERVICE: 04/26/20 Discharge Plan Patient Name: SEJAL CHAIREZ Facility: [facility]:[place] : 1970 Planned Disposition: Home Anticipated Discharge Date: Discharge Date: 04/26/2020 Expected LOS: Initial Reviewer: [email or web address] Initial Review Date: 04/23/2020 Generated: 04/26/20 6:33 pm Comments DCP- Discharge Planning Updated by [email or web address]: Mellisa Willams on 04/26/20 11:[address] Patient Name: SEJAL CHAIREZ Admission Status: ER Accout number: [id number] Admission Date: 04-23-2020 : 1970 Admission Diagnosis:SHORTNESS OF BREATH Attending: BORA, Current LOS: 3 Anticipated DC Date: Planned Disposition: Home Primary Insurance: [employer] MANAGED MEDICAID Discharge Planning Comments: CM met with patient at bedside after explaining CM role and obtaining verbal consent. CM discussed availability / needs of home health, REHAB and medical equipment. PATIENT DENIES ANY DISCHARGE NEEDS. FAMILY HERE TO DRIVE HOME AT TIME OF DISCHARGE. Branch Store Manager: Mellisa Willams DCPIA - Discharge Planning Initial Assessment Updated by [email or web address]: Mellisa Willams on 04/26/20 12:12 pm * Is the patient Alert and Oriented? Yes * PCP KATHRYN * [facility] * Preadmission Environment Home with Family * ADLs Independent * Other Equipment NEBS, CANE * Community resources currently utilized None * Additional services required to return to the preadmission environment? No * Can the patient safely return to the preadmission environment? Yes * Has this patient been hospitalized within the prior 30 days at any hospital? No Last DP export: 04/26/20 11:19 am Patient Name: SEJAL CHAIREZ Page [phone] at 1733 All edits/amendments must be made on the electronic document DICTATION DATE: 04/26/201732 IT AUDIT MANAGER: FLAKITA 04/26/20 1733 RPT#: [id number] DC DATE:04/26/20 STATUS: DIS IN [facility] [address] [facility] [place] [address] END OF REPORT
[2020-05-01 17:08] LABS: AEROBE ID Preliminary report (()); RESULT 1 Gram negative rods (())
== END 2020-04-26 14:28 | disposition home or self-care (01) | DRG 202 ==
LOC: D.ER 01:58 → D.MS 03:42
PROVIDERS: Emergency Medicine; Family Medicine; ADMIT Family Medicine; ATTEND Family Medicine
DX: J20.9 Acute bronchitis, unspecified (principal); N17.9 Acute kidney failure, unspecified; I50.22 Chronic systolic (congestive) heart failure; J44.0 Chronic obstructive pulmonary disease with (acute) lower respiratory infection; I11.0 Hypertensive heart disease with heart failure; J45.909 Unspecified asthma, uncomplicated; F41.8 Other specified anxiety disorders; I25.10 Atherosclerotic heart disease of native coronary artery without angina pectoris; E11.40 Type 2 diabetes mellitus with diabetic neuropathy, unspecified

== ENCOUNTER 2020-05-03 18:07 | Emergency (ER) | payer OTHER ==
[~2020-05-03] VITALS: Ht 172.7 cm; Wt 102.3 kg
[~2020-05-03 18:07] MED LIST changes: +ALBUTEROL SULF8.5 GM INH; +ASPIRIN81 MG PO; +BREO ELLIPTA 11 EACH INH; +FLUTICASONE PRO16 GM NASAL; +FUROSEMIDE20 MG PO; +INCRUSE INHALER; +IPRAT-ALBUT 0.5-3 ML UPD; +LANTUS SOLOSTAR3 ML SC; +MUCINEX600 MG PO; +PREDNISONE10 MG PO; +SPIRIVA18 MCG INH; +TESSALON PERLE100 MG PO; +TOPAMAX50 MG; +VIBRAMYCIN 100100 MG PO
[2020-05-03 18:27] VITALS: BP 138/85; Ht 172.7 cm; Wt 102.3 kg
[2020-05-03 18:52] LABS: BASOPHILS 0.1 % (0-2); EOSINOPHILS 0 % (0-7); HEMATOCRIT 44.2 % (36.0-48.0); HEMOGLOBIN 15.4 g/dL (12-16); LYMPHOCYTES 21.2 % (15-50); MCH 33.5 pg (26.0-34.0); MCHC 34.8 g/dL (31.0-37.0); MCV 96.1 fL (80.0-100.0); MEAN PLATELET VOLUME 10.6 fL (7.4-10.4); MONOCYTES 2.7 % (2-11); PLATELET COUNT 138 10x3/uL (130-400); RDW 13.5 % (11.5-14.5); WBC 9.2 10x3/uL (4.8-10.8)
[2020-05-03 19:04] LABS: CALC OSMOLALITY 285 mosm/kg (275-300); CALCIUM 8.3 mg/dL (8.5-10.1); CARBON DIOXIDE 26.8 mmol/L (21.0-32.0); CHLORIDE - SERUM 103 mmol/L (98-107); CREATININE - SERUM 0.8 mg/dL (0.6-1.3); GLUCOSE 326 mg/dL (74-106); POTASSIUM - SERUM 4.5 mmol/L (3.5-5.1); SODIUM 136 mmol/L (136-145); UREA NITROGEN 14 mg/dL (7-18); eGFR NON AFRICAN AMERICAN 80 mL/min (90-120)
[2020-05-03 19:05] LABS: APTT 29.3 SECONDS (22.8-39.4); INR 1.01 (0.85-1.17); PROTIME 13.2 SECONDS (11.6-15.0)
[2020-05-03 19:20] LABS: ALBUMIN 3.1 g/dL (3.4-5.0); ALKALINE PHOSPHATASE 79 U/L (30-120); ALT (SGPT) 52 U/L (10-68); BILIRUBIN - TOTAL 0.35 mg/dL (0.2-1.3); CKMB 1.4 U/L (0.0-3.6); CREATINE KINASE 42 UL (21-215); PRO BNP 838 pg/mL (0-125); PROTEIN - SERUM 6.3 g/dL (6.4-8.2)
[2020-05-03 19:24] LABS: TROPONIN-I < 0.017 ng/mL (0.000-0.060)
[2020-05-03] MEDS ORDERED: K-TAB10 MEQ PO (19:59)
[2020-05-03] MEDS ORDERED: MAGNESIUM OXID500 MG PO (20:01)
== END 2020-05-03 20:41 | disposition home or self-care (01) ==
LOC: D.ER 18:07
PROVIDERS: Family Medicine
DX: R22.43 Localized swelling, mass and lump, lower limb, bilateral (principal); I89.0 Lymphedema, not elsewhere classified; E11.9 Type 2 diabetes mellitus without complications; I11.0 Hypertensive heart disease with heart failure; I50.9 Heart failure, unspecified; J44.9 Chronic obstructive pulmonary disease, unspecified; Z72.0 Tobacco use; Z79.4 Long term (current) use of insulin; R06.02 Shortness of breath

== ENCOUNTER 2020-05-06 00:43 | Emergency (ER) | payer OTHER ==
[~2020-05-06] VITALS: Ht 172.7 cm; Wt 102.3 kg
[~2020-05-06 00:43] MED LIST changes: +K-TAB10 MEQ PO; +MAGNESIUM OXID500 MG PO
[2020-05-06 00:57] VITALS: Ht 172.7 cm; Wt 102.3 kg
[2020-05-06 01:53] LABS: HEMATOCRIT 41.2 % (36.0-48.0); HEMOGLOBIN 14.5 g/dL (12-16); LYMPHOCYTES 19.3 % (15-50); MCH 33.6 pg (26.0-34.0); MCHC 35.2 g/dL (31.0-37.0); MCV 95.4 fL (80.0-100.0); MEAN PLATELET VOLUME 10.3 fL (7.4-10.4); NEUTROPHILS 75.6 % (40-80); PLATELET COUNT 139 10x3/uL (130-400); RBC 4.32 10x6/uL (4.00-5.40); RDW 14.4 % (11.5-14.5); WBC 11.8 10x3/uL (4.8-10.8)
[2020-05-06 02:04] LABS: ANION GAP 10.7 mmol/L (8-16); CALCIUM 8.2 mg/dL (8.5-10.1); CARBON DIOXIDE 28.4 mmol/L (21.0-32.0); CREATININE - SERUM 1.2 mg/dL (0.6-1.3); POTASSIUM - SERUM 4.1 mmol/L (3.5-5.1)
[2020-05-06 02:17] LABS: ALBUMIN 2.8 g/dL (3.4-5.0); BILIRUBIN - TOTAL 0.27 mg/dL (0.2-1.3); PROTEIN - SERUM 5.8 g/dL (6.4-8.2)
[2020-05-06] MEDS ORDERED: BUMEX2 MG PO (02:34)
[2020-05-06] MEDS ORDERED: K-DUR20 MEQ PO (02:34)
[2020-05-06 02:52] VITALS: BP 112/78
== END 2020-05-06 02:52 | disposition home or self-care (01) ==
LOC: D.ER 00:43
PROVIDERS: Emergency Medicine
DX: R60.0 Localized edema (principal); E11.65 Type 2 diabetes mellitus with hyperglycemia; I10 Essential (primary) hypertension; J44.9 Chronic obstructive pulmonary disease, unspecified; Z72.0 Tobacco use; Z79.4 Long term (current) use of insulin; R53.1 Weakness

== ENCOUNTER 2020-07-18 21:14 | Emergency (ER) | payer OTHER ==
[~2020-07-18] VITALS: Ht 172.7 cm; Wt 102.3 kg
[~2020-07-18 21:14] MED LIST changes: +BUMEX2 MG PO; +K-DUR20 MEQ PO
[2020-07-18 21:25] VITALS: BP 122/65; Ht 172.7 cm; Wt 102.3 kg
[2020-07-18] MEDS ORDERED: CEFUROXIME500 MG PO (21:49)
[2020-07-18] MEDS ORDERED: FLAGYL500 MG PO (21:49)
[2020-07-18] MEDS ORDERED: HYDROCODON-ACE1 EA10 PO (22:01)
== END 2020-07-18 22:39 | disposition home or self-care (01) ==
LOC: D.ER 21:14
DX: K08.89 Other specified disorders of teeth and supporting structures (principal); K04.7 Periapical abscess without sinus; K02.9 Dental caries, unspecified; E11.9 Type 2 diabetes mellitus without complications; I10 Essential (primary) hypertension; I50.9 Heart failure, unspecified; J45.909 Unspecified asthma, uncomplicated; J44.9 Chronic obstructive pulmonary disease, unspecified

== ENCOUNTER 2021-02-09 19:44 | Emergency (ER) | payer OTHER ==
[~2021-02-09] VITALS: Ht 172.7 cm; Wt 106.8 kg
[~2021-02-09 19:44] MED LIST changes: +CEFUROXIME500 MG PO; +FLAGYL500 MG PO; +HYDROCODON-ACE1 EA10 PO; +NAPROSYN500 MG PO
[2021-02-09 19:46] VITALS: Ht 172.7 cm; Wt 106.8 kg
[2021-02-09 20:09] LABS: BASOPHILS 0.9 % (0-2); EOSINOPHILS 1.7 % (0-7); HEMATOCRIT 45.1 % (36.0-48.0); HEMOGLOBIN 15.2 g/dL (12-16); IMMATURE GRANULOCYTES 0.6 % (0-5); LYMPHOCYTE ABS# 1.83 10x3/uL (1.18-3.74); LYMPHOCYTES 28.2 % (15-50); MCH 33.1 pg (26.0-34.0); MCHC 33.7 g/dL (31.0-37.0); MCV 98.3 fL (80.0-100.0); MEAN PLATELET VOLUME 10.6 fL (7.4-10.4); MONOCYTES 7.6 % (2-11); NEUTROPHIL ABS# 3.95 10x3/uL (1.56-6.13); PLATELET COUNT 150 10x3/uL (130-400); RBC 4.59 10x6/uL (4.00-5.40); RDW 13.8 % (11.5-14.5); WBC 6.5 10x3/uL (4.8-10.8)
[2021-02-09 20:26] LABS: APTT 30.5 SECONDS (22.8-39.4); CALC OSMOLALITY 283 mosm/kg (275-300); CALCIUM 8.1 mg/dL (8.5-10.1); CARBON DIOXIDE 28.8 mmol/L (21.0-32.0); CHLORIDE - SERUM 109 mmol/L (98-107); CREATININE - SERUM 0.6 mg/dL (0.6-1.3); INR 1.08 (0.85-1.17); POTASSIUM - SERUM 3.9 mmol/L (3.5-5.1); PROTIME 12.9 SECONDS (11.6-15.0); SODIUM 143 mmol/L (136-145); UREA NITROGEN 10 mg/dL (7-18); eGFR NON AFRICAN AMERICAN > 90 mL/min (90-120)
[2021-02-09 20:28] LABS: GLUCOSE 103 mg/dL (74-106)
[2021-02-09 20:42] LABS: ALBUMIN 3.2 g/dL (3.4-5.0); ALKALINE PHOSPHATASE 85 U/L (30-120); ALT (SGPT) 27 U/L (10-68); BILIRUBIN - TOTAL 0.21 mg/dL (0.2-1.3); CKMB 1.1 U/L (0.0-3.6); CREATINE KINASE 49 UL (21-215); MAGNESIUM - SERUM 1.9 mg/dL (1.8-2.4); PROTEIN - SERUM 6.4 g/dL (6.4-8.2)
[2021-02-09] MEDS ORDERED: STERAPRED DS 1010 MG PO (21:51)
[2021-02-09 22:26] VITALS: BP 155/72
== END 2021-02-09 22:26 | disposition home or self-care (01) ==
LOC: D.ER 19:44
PROVIDERS: Emergency Medicine
DX: R07.89 Other chest pain (principal); E11.9 Type 2 diabetes mellitus without complications; I11.0 Hypertensive heart disease with heart failure; I50.9 Heart failure, unspecified; J44.9 Chronic obstructive pulmonary disease, unspecified; Z72.0 Tobacco use; Z79.4 Long term (current) use of insulin

== ENCOUNTER 2021-02-20 21:01 | Inpatient (IN) | payer OTHER ==
[~2021-02-20] VITALS: Ht 172.7 cm; Wt 104.3 kg
[~2021-02-20 21:01] MED LIST changes: +STERAPRED DS 1010 MG PO
[2021-02-20 21:40] LABS: BASOPHILS 0.6 % (0-2); EOSINOPHILS 1.4 % (0-7); HEMOGLOBIN 15.7 g/dL (12-16); IMMATURE GRANULOCYTES 0.4 % (0-5); LYMPHOCYTE ABS# 1.53 10x3/uL (1.18-3.74); LYMPHOCYTES 14.8 % (15-50); MCH 32.3 pg (26.0-34.0); MCHC 32.7 g/dL (31.0-37.0); MCV 98.8 fL (80.0-100.0); MEAN PLATELET VOLUME 11.3 fL (7.4-10.4); MONOCYTES 7.6 % (2-11); NEUTROPHIL ABS# 7.79 10x3/uL (1.56-6.13); NEUTROPHILS 75.2 % (40-80); PLATELET COUNT 155 10x3/uL (130-400); RBC 4.86 10x6/uL (4.00-5.40); RDW 13.9 % (11.5-14.5); WBC 10.4 10x3/uL (4.8-10.8)
[2021-02-20 21:49] LABS: CALC OSMOLALITY 278 mosm/kg (275-300); CARBON DIOXIDE 27.7 mmol/L (21.0-32.0); CHLORIDE - SERUM 104 mmol/L (98-107); CREATININE - SERUM 0.6 mg/dL (0.6-1.3); GLUCOSE 99 mg/dL (74-106); POTASSIUM - SERUM 4.2 mmol/L (3.5-5.1); SODIUM 140 mmol/L (136-145); UREA NITROGEN 13 mg/dL (7-18); eGFR NON AFRICAN AMERICAN > 90 mL/min (90-120)
[2021-02-20 21:50] LABS: APTT 29.5 SECONDS (22.8-39.4); INR 1.02 (0.85-1.17); PROTIME 12.4 SECONDS (11.6-15.0)
[2021-02-20 22:10] LABS: ALBUMIN 3.3 g/dL (3.4-5.0); ALKALINE PHOSPHATASE 95 U/L (30-120); ALT (SGPT) 35 U/L (10-68); BILIRUBIN - TOTAL 0.48 mg/dL (0.2-1.3); CKMB 1.2 U/L (0.0-3.6); CREATINE KINASE 56 UL (21-215); PRO BNP 591 pg/mL (0-125); PROTEIN - SERUM 7.3 g/dL (6.4-8.2)
[2021-02-20 22:18] LABS: TROPONIN-I 0.138 ng/mL (0.000-0.060)
--- NOTE | 2021-02-20 22:18 | NUR ---
CRITICAL LAB VALUE CALLED TO ED, TROP OF 0.138. EDP RODOLFO NOTIFIED, NO FURTHER ORDERS ENTERED INTO CHART AT THIS TIME.
--- NOTE | 2021-02-20 23:29 | NUR ---
PT TO ORDERED CTA AT THIS TIME VIA STRETCHER WITH Janalakshmi.
--- NOTE | 2021-02-21 02:15 | NUR ---
PT RECEIVED TO ROOM 213 VIA WITH ER NURSE. PT TRANSFERRED SELF, AMBULATED FROM TO ROOM BED. O2 6 LNC O2 SAT 98% PT REPORTS COTMADI PE[place], AND HA. SARAVIA EPORTS CHRONCI MIGRAINES. VSS, NO ACUTE DISTRESS WILL CONTIUE TO MONITOR
[2021-02-21 03:07] VITALS: BP 144/66; BMI 35.0
--- NOTE | 2021-02-21 03:31 | NUR ---
CALLED FOR TELEMETERY FOR PT, PER TELEMETRY NONE AVAILABLE AT [facility] TIME
[2021-02-21 04:42] LABS: BILIRUBIN NEGATIVE (NEGATIVE); KETONE NEGATIVE (NEGATIVE); NITRITE NEGATIVE (NEGATIVE); UROBILINOGEN NORMAL mg/dL (< 2)
--- NOTE | 2021-02-21 04:49 | NUR ---
I have reviewed this patient and I concur with the Shift Assessment completed by the Licensed Practical Nurse today this shift.
[2021-02-21 05:09] VITALS: BP 122/52
[2021-02-21 06:50] LABS: HEMATOCRIT 45.3 % (36.0-48.0); HEMOGLOBIN 15.1 g/dL (12-16); LYMPHOCYTE ABS# 0.83 10x3/uL (1.18-3.74); MCH 32.5 pg (26.0-34.0); MCHC 33.3 g/dL (31.0-37.0); MCV 97.4 fL (80.0-100.0); MEAN PLATELET VOLUME 11.1 fL (7.4-10.4); NEUTROPHIL ABS# 10.86 10x3/uL (1.56-6.13); PLATELET COUNT 144 10x3/uL (130-400); RBC 4.65 10x6/uL (4.00-5.40); RDW 13.8 % (11.5-14.5)
[2021-02-21 07:19] LABS: ALBUMIN 2.8 g/dL (3.4-5.0); ALKALINE PHOSPHATASE 90 U/L (30-120); ALT (SGPT) 33 U/L (10-68); CALC OSMOLALITY 285 mosm/kg (275-300); CALCIUM 8.4 mg/dL (8.5-10.1); CARBON DIOXIDE 26.1 mmol/L (21.0-32.0); CHLORIDE - SERUM 103 mmol/L (98-107); CHOLESTEROL, TOTAL 130 mg/dL (0-200); CKMB 1.1 U/L (0.0-3.6); CREATINE KINASE 60 UL (21-215); CREATININE - SERUM 0.8 mg/dL (0.6-1.3); GLUCOSE 271 mg/dL (74-106); HDL CHOLESTEROL 66 mg/dL (32-96); LDL CHOLESTEROL 55 mg/dL (0-100); LDL-HDL RATIO 0.8 ratio (1.5-3.5); MAGNESIUM - SERUM 1.9 mg/dL (1.8-2.4); PHOSPHOROUS 4.3 mg/dL (2.5-4.9); POTASSIUM - SERUM 4.6 mmol/L (3.5-5.1); PROTEIN - SERUM 6.7 g/dL (6.4-8.2); SODIUM 137 mmol/L (136-145); TRIGLYCERIDE 49 mg/dL (30-200); TROPONIN-I 0.093 ng/mL (0.000-0.060); UREA NITROGEN 18 mg/dL (7-18); eGFR NON AFRICAN AMERICAN 80 mL/min (90-120)
[2021-02-21 08:17] VITALS: BP 108/44
[2021-02-21] MEDS ORDERED: ATARAX 25 MG TA25 MG PO (10:16)
[2021-02-21 11:36] VITALS: BP 155/69
[2021-02-21 12:49] VITALS: Ht 172.7 cm; Wt 104.3 kg
[2021-02-21 13:37] LABS: CKMB 1.3 U/L (0.0-3.6); CREATINE KINASE 69 UL (21-215); TROPONIN-I 0.058 ng/mL (0.000-0.060)
[2021-02-21 14:14] LABS: LYMPHOCYTES 17 % (15-50); MONOCYTES 7 % (2-11); NEUTROPHILS 74 % (40-80); PLATELET ESTIMATE NORMAL
[2021-02-21 15:58] VITALS: BP 148/62
[2021-02-21 21:10] VITALS: BP 134/58
[2021-02-21 23:15] LABS: CKMB 1.5 U/L (0.0-3.6); CREATINE KINASE 61 UL (21-215); TROPONIN-I 0.048 ng/mL (0.000-0.060)
[2021-02-22 00:59] VITALS: BP 130/59
--- NOTE | 2021-02-22 05:17 | NUR ---
I have reviewed this patient and I concur with the Shift Assessment completed by the Licensed Practical Nurse today this shift.
[2021-02-22 05:43] LABS: BASOPHILS 0.1 % (0-2); EOSINOPHILS 0 % (0-7); HEMATOCRIT 45.9 % (36.0-48.0); HEMOGLOBIN 14.9 g/dL (12-16); IMMATURE GRANULOCYTES 0.3 % (0-5); LYMPHOCYTE ABS# 0.97 10x3/uL (1.18-3.74); LYMPHOCYTES 8.1 % (15-50); MCHC 32.5 g/dL (31.0-37.0); MCV 98.5 fL (80.0-100.0); MEAN PLATELET VOLUME 11.4 fL (7.4-10.4); MONOCYTES 5.7 % (2-11); NEUTROPHIL ABS# 10.26 10x3/uL (1.56-6.13); NEUTROPHILS 85.8 % (40-80); PLATELET COUNT 165 10x3/uL (130-400); RBC 4.66 10x6/uL (4.00-5.40); RDW 13.7 % (11.5-14.5)
[2021-02-22 06:22] LABS: ALBUMIN 2.9 g/dL (3.4-5.0); ANION GAP 13.8 mmol/L (8-16); BILIRUBIN - TOTAL 0.22 mg/dL (0.2-1.3); CALCIUM 8.8 mg/dL (8.5-10.1); CARBON DIOXIDE 27.2 mmol/L (21.0-32.0); CREATININE - SERUM 0.9 mg/dL (0.6-1.3); MAGNESIUM - SERUM 2.3 mg/dL (1.8-2.4); PROTEIN - SERUM 7.2 g/dL (6.4-8.2)
[2021-02-22 06:32] LABS: PHOSPHOROUS 3.2 mg/dL (2.5-4.9)
[2021-02-22 08:51] VITALS: BP 120/51
--- NOTE | 2021-02-22 11:09 | EC ---
PATIENT:SEJAL CHAIREZ DATE OF SERVICE: 02/21/21 SEX: F MEDICAL RECORD: [id number] DATE OF : [birth year] LOCATION:D.M2 D.213 AGE OF PATIENT: 50 ADMISSION DATE: 02/21/21 REFERRING PHYSICIAN: INTERPRETING PHYSICIAN: JASON RIDLEY MD ECHOCARDIOGRAM REPORT ECHO CHARGES 4 ECHO COMPLETE Date: 02/21/21 CLINICAL DIAGNOSIS: CAD, HTN ECHOCARDIOGRAPHIC MEASUREMENTS (adult normal given) AC root (d.<3.7cm) 3.1 cm LV Septum d (<1.2 cm> 1.3 cm Valve Excursion 1.8 cm LV Septum (systole) 1.4 cm Left Atria (s.<4.0cm> 3.8 cm LVPW d(<1.2cm) 0.9 cm RV (d.<2.3cm) 2.8 cm LVPW (sytole) 1.2 cm LV diastole(<5.6CM) 6.1 cm MV E-F(>70mm/sec) cm LV systole 5.2 cm LVOT Diameter 1.8 cm MV exc.(>10mm) 1.8 cm Est.ejection fraction (50-75%) % DOPPLER: LVIT cm/sec A 95 cm/sec E 105 cm/sec LA cm/sec RVSP 27 mmHg LVOT 72 cm/sec AOP1/2T m/s Asc. Ao 113 cm/sec RVOT 62 cm/sec RA cm/sec PA 80 cm/sec AV Gradient Peak 5.1 mmHg AV Mean 3.1 mmHg AV Area 1.7 cm MV Gradient Peak 7.3 mmHg MV Mean 3.6 mmHg MV Area cm COMMENTS: Television Actor: Tia GOMEZ [place] Reporter: 3 Dr. Bar TAPE# Pericardial Effusion N DATE OF SERVICE: Adequate 2D, color-flow imaging, spectral Doppler, and M-Mode FINDINGS: No LVH. LV internal dimension is normal. Wall motion is normal. EF is greater than or equal to 55%. Aortic valve is tricuspid. No evidence of stenosis by Doppler interrogation. Left atrium is normal at 3.8 cm. Mitral valve shows no prolapse. Trace MR. Right side is grossly normal. Trace TR. TRANSINT:[id number] Voice Confirmation ID: [id number] DOCUMENT ID: [id number] ECHOCARDIOGRAM REPORT [id number] VERMEER,SEJAL K JASON RIDLEY MD at 1109 CC: [id number] DICTATION DATE: 02/22/21804 [facility] AGENT: 02/22/21 0953 ADM IN [facility] [address] [id number]
[2021-02-22 13:06] VITALS: BP 145/55
[2021-02-22 15:51] VITALS: BP 149/70
[2021-02-22 20:19] VITALS: BP 140/40
--- NOTE | 2021-02-22 22:48 | NUR ---
PT LEFT ARM IV STARTED SWELLING WITH REDNESS AND ITCHING WHEN ZITHROMAX WAS INFUSING. IV WAS REMOVED BY PATIENT REQUEST. MEDICATION WAS THEN INFUSING THROUGH RIGHT ARM IV AND THE SAME REACTION HAPPENED WITHIN SECONDS. PT APPEARS FEARFUL OF REACTION. MEDICATION NOW LISTED AN ALLERGY ON PT CHART. RIGHT ARM IV REMOVED AND ICE APPLIED. 2 ATTEMPTS BY THIS RN FOR NEW IV UNSUCESSFUL. CHARGE NURSE NOTIFIED AND WILL ATTEMPT NEW IV.
[2021-02-23 05:47] VITALS: BP 148/69
[2021-02-23 06:49] LABS: BASOPHILS 0.1 % (0-2); EOSINOPHILS 0 % (0-7); HEMATOCRIT 45.6 % (36.0-48.0); HEMOGLOBIN 14.9 g/dL (12-16); IMMATURE GRANULOCYTES 0.2 % (0-5); LYMPHOCYTE ABS# 0.63 10x3/uL (1.18-3.74); LYMPHOCYTES 5.2 % (15-50); MCH 32.1 pg (26.0-34.0); MCHC 32.7 g/dL (31.0-37.0); MCV 98.3 fL (80.0-100.0); MEAN PLATELET VOLUME 11.5 fL (7.4-10.4); MONOCYTES 3.2 % (2-11); NEUTROPHIL ABS# 11.07 10x3/uL (1.56-6.13); NEUTROPHILS 91.3 % (40-80); PLATELET COUNT 174 10x3/uL (130-400); RBC 4.64 10x6/uL (4.00-5.40); RDW 13.8 % (11.5-14.5); WBC 12.1 10x3/uL (4.8-10.8)
[2021-02-23 07:26] LABS: ALBUMIN 3.2 g/dL (3.4-5.0); ANION GAP 15.6 mmol/L (8-16); BILIRUBIN - TOTAL 0.27 mg/dL (0.2-1.3); CALCIUM 8.8 mg/dL (8.5-10.1); CARBON DIOXIDE 27.3 mmol/L (21.0-32.0); CREATININE - SERUM 0.9 mg/dL (0.6-1.3); MAGNESIUM - SERUM 2.4 mg/dL (1.8-2.4); PHOSPHOROUS 3.1 mg/dL (2.5-4.9); POTASSIUM - SERUM 3.9 mmol/L (3.5-5.1); PROTEIN - SERUM 7.4 g/dL (6.4-8.2)
[2021-02-23 08:26] VITALS: BP 136/58
[2021-02-23 15:20] VITALS: BP 134/48
[2021-02-23 21:01] VITALS: BP 144/58
[2021-02-24 04:58] VITALS: BP 149/55
[2021-02-24 06:06] LABS: BASOPHILS 0.1 % (0-2); EOSINOPHILS 0 % (0-7); HEMATOCRIT 44.7 % (36.0-48.0); HEMOGLOBIN 14.7 g/dL (12-16); IMMATURE GRANULOCYTES 0.4 % (0-5); LYMPHOCYTE ABS# 0.71 10x3/uL (1.18-3.74); LYMPHOCYTES 7.2 % (15-50); MCHC 32.9 g/dL (31.0-37.0); MCV 97.2 fL (80.0-100.0); MEAN PLATELET VOLUME 11.3 fL (7.4-10.4); MONOCYTES 4.8 % (2-11); NEUTROPHIL ABS# 8.65 10x3/uL (1.56-6.13); NEUTROPHILS 87.5 % (40-80); PLATELET COUNT 165 10x3/uL (130-400); RDW 13.5 % (11.5-14.5); WBC 9.9 10x3/uL (4.8-10.8)
[2021-02-24 06:49] LABS: ALBUMIN 2.9 g/dL (3.4-5.0); BILIRUBIN - TOTAL 0.12 mg/dL (0.2-1.3); CALCIUM 8.5 mg/dL (8.5-10.1); CARBON DIOXIDE 26.2 mmol/L (21.0-32.0); CREATININE - SERUM 0.9 mg/dL (0.6-1.3); MAGNESIUM - SERUM 2.7 mg/dL (1.8-2.4); PHOSPHOROUS 2.6 mg/dL (2.5-4.9); PROTEIN - SERUM 6.7 g/dL (6.4-8.2)
[2021-02-24 06:55] LABS: ANION GAP 12.5 mmol/L (8-16); POTASSIUM - SERUM 4.7 mmol/L (3.5-5.1)
[2021-02-24 08:27] VITALS: BP 150/58
[2021-02-24 12:10] VITALS: BP 125/44
--- NOTE | 2021-02-24 13:10 | NUR ---
PATIENT ON HIGH RESISTANCE SLIDING SCALE, BLOOD SUGAR 400, GIVEN 28 UNITS HUMALOG AND SHILO VELEZ.
[2021-02-24 16:06] VITALS: BP 132/49
[2021-02-24 20:00] VITALS: BP 146/60
--- NOTE | 2021-02-24 20:00 | NUR ---
INITIAL ROUNDS AND ASSESSMENT COMPLETED. PT RESTING IN BED. CALL LIGHT IN REACH. SEE ASSESSMENT.
[2021-02-25 05:22] VITALS: BP 150/66
[2021-02-25 07:54] LABS: BASOPHILS 0 % (0-2); EOSINOPHILS 0 % (0-7); HEMATOCRIT 43.1 % (36.0-48.0); HEMOGLOBIN 14.2 g/dL (12-16); IMMATURE GRANULOCYTES 0.7 % (0-5); LYMPHOCYTE ABS# 0.91 10x3/uL (1.18-3.74); MCHC 32.9 g/dL (31.0-37.0); MCV 97.1 fL (80.0-100.0); MEAN PLATELET VOLUME 11.6 fL (7.4-10.4); MONOCYTES 1.9 % (2-11); NEUTROPHIL ABS# 7.96 10x3/uL (1.56-6.13); NEUTROPHILS 87.4 % (40-80); PLATELET COUNT 162 10x3/uL (130-400); RBC 4.44 10x6/uL (4.00-5.40); RDW 13.5 % (11.5-14.5); WBC 9.1 10x3/uL (4.8-10.8)
[2021-02-25 08:05] LABS: ALBUMIN 2.7 g/dL (3.4-5.0); ALKALINE PHOSPHATASE 107 U/L (30-120); ALT (SGPT) 38 U/L (10-68); BILIRUBIN - TOTAL 0.17 mg/dL (0.2-1.3); CALC OSMOLALITY 294 mosm/kg (275-300); CALCIUM 8.7 mg/dL (8.5-10.1); CARBON DIOXIDE 26.2 mmol/L (21.0-32.0); CHLORIDE - SERUM 103 mmol/L (98-107); CREATININE - SERUM 0.8 mg/dL (0.6-1.3); GLUCOSE 369 mg/dL (74-106); MAGNESIUM - SERUM 2.2 mg/dL (1.8-2.4); POTASSIUM - SERUM 3.9 mmol/L (3.5-5.1); PROTEIN - SERUM 6.4 g/dL (6.4-8.2); SODIUM 138 mmol/L (136-145); UREA NITROGEN 23 mg/dL (7-18); eGFR NON AFRICAN AMERICAN 80 mL/min (90-120)
--- NOTE | 2021-02-25 09:20 | NUR ---
AM MEDS GIVEN AT THIS TIME. PT SITTING ON SIDE OF BED VISITING WITH . RR EVEN NON LABORED, NO NEEDS VOICED. CLWR.
--- NOTE | 2021-02-25 13:15 | NUR ---
Nutrition Follow-up: Eating well. Noted plans to d/c soon. Diet: Diabetic PO intake: 92% avg x 3 meals (02/24) Labs noted: Glu 369, Alb 2.7 Meds noted: Florajen, Solumedrol, Lantus, Humalog, Phenergan, Protonix electrolyte protocol -RD will follow up within 4 days if pt still admitted.
--- NOTE | 2021-02-25 18:50 | NUR ---
pt noted sitting on side of bed, awake no distress noted. will continue to monitor
[2021-02-25 22:25] VITALS: BP 162/63
[2021-02-26] VITALS: BP 147/54
[2021-02-26 07:04] LABS: BASOPHILS 0.1 % (0-2); EOSINOPHILS 0 % (0-7); HEMATOCRIT 42.1 % (36.0-48.0); HEMOGLOBIN 13.9 g/dL (12-16); IMMATURE GRANULOCYTES 0.8 % (0-5); LYMPHOCYTE ABS# 1.37 10x3/uL (1.18-3.74); LYMPHOCYTES 16.3 % (15-50); MCH 31.7 pg (26.0-34.0); MCV 96.1 fL (80.0-100.0); MEAN PLATELET VOLUME 11.7 fL (7.4-10.4); NEUTROPHIL ABS# 6.52 10x3/uL (1.56-6.13); NEUTROPHILS 77.8 % (40-80); PLATELET COUNT 163 10x3/uL (130-400); RBC 4.38 10x6/uL (4.00-5.40); RDW 13.3 % (11.5-14.5); WBC 8.4 10x3/uL (4.8-10.8)
[2021-02-26 07:28] LABS: ALBUMIN 2.7 g/dL (3.4-5.0); ALKALINE PHOSPHATASE 92 U/L (30-120); ALT (SGPT) 41 U/L (10-68); BILIRUBIN - TOTAL 0.17 mg/dL (0.2-1.3); CALCIUM 8.3 mg/dL (8.5-10.1); CARBON DIOXIDE 26.2 mmol/L (21.0-32.0); CREATININE - SERUM 0.7 mg/dL (0.6-1.3); MAGNESIUM - SERUM 2.4 mg/dL (1.8-2.4); PROTEIN - SERUM 6.2 g/dL (6.4-8.2); UREA NITROGEN 22 mg/dL (7-18); eGFR NON AFRICAN AMERICAN > 90 mL/min (90-120)
[2021-02-26 07:32] LABS: GLUCOSE 305 mg/dL (74-106)
[2021-02-26 07:43] LABS: CALC OSMOLALITY 291 mosm/kg (275-300); CHLORIDE - SERUM 104 mmol/L (98-107); SODIUM 139 mmol/L (136-145)
--- NOTE | 2021-02-26 08:20 | NUR ---
AM MEDS GIVEN WITH PRN PAIN MEDS. DR BHATT MADE ROUNDS DURING THIS TIME AND STATES PT IS OKAY FROM HIS STAND POINT TO D/C HOME. PT AWARE AND AGREES. NO FURTHER NEEDS VOICED. CLWR.
[2021-02-26] MEDS ORDERED: PREDNISONE10 MG PO (09:50)
[2021-02-26] MEDS ORDERED: AZITHROMYCIN500 MG PO (09:51)
[2021-02-26] MEDS ORDERED: OMNICEF300 MG PO (09:51)
--- NOTE | 2021-02-26 11:08 | NUR ---
PT GIVEN D.C INSTRUCTIONS AT THIS TIME INCLUDING FOLLOW UP APPOINTMENTS AND MEDICATIONS. PT STATES UNDERSTANDING. NO QUESTIONS VOICED. PT GATHERING BELONGINGS, PT WAITING FOR TRANSPORTATION HOME. CLWR.
--- NOTE | 2021-02-26 12:48 | NUR ---
IV REMOVED, CATHETER INTACT, DRESSING APPLIED. PT STATES HER TRANSPORT SHOULD BE HERE SHORTLY. CLWR.
--- NOTE | 2021-02-26 13:24 | NUR ---
PT WHEELED TO PRIVATE VEHICLE AT THIS TIME WITH ALL BELONGINGS, NO DISTRESS NOTED ON DEPARTURE.
== END 2021-02-26 13:27 | disposition home or self-care (01) | DRG 193 ==
LOC: D.ER 21:01 → D.M2 02-21 02:03
PROVIDERS: Emergency Medicine; ADMIT Emergency Medicine; ATTEND Emergency Medicine
DX: J18.9 Pneumonia, unspecified organism (principal); J96.21 Acute and chronic respiratory failure with hypoxia; I50.22 Chronic systolic (congestive) heart failure; J44.9 Chronic obstructive pulmonary disease, unspecified; F41.8 Other specified anxiety disorders; J45.909 Unspecified asthma, uncomplicated; F17.200 Nicotine dependence, unspecified, uncomplicated; E78.5 Hyperlipidemia, unspecified; Z79.4 Long term (current) use of insulin; I11.0 Hypertensive heart disease with heart failure; R59.0 Localized enlarged lymph nodes; E11.65 Type 2 diabetes mellitus with hyperglycemia

== ENCOUNTER 2021-02-28 17:49 | Inpatient (IN) | payer OTHER ==
[~2021-02-28] VITALS: Ht 172.7 cm; Wt 100.5 kg
[~2021-02-28 17:49] MED LIST changes: +ATARAX 25 MG TA25 MG PO; +AZITHROMYCIN500 MG PO; +OMNICEF300 MG PO
[2021-02-28 18:00] VITALS: BP 162/55
[2021-02-28 18:28] LABS: BASOPHILS 0.1 % (0-2); EOSINOPHILS 0.5 % (0-7); HEMATOCRIT 43.6 % (36.0-48.0); HEMOGLOBIN 14.9 g/dL (12-16); IMMATURE GRANULOCYTES 0.8 % (0-5); LYMPHOCYTE ABS# 1.64 10x3/uL (1.18-3.74); LYMPHOCYTES 9.8 % (15-50); MCH 32.9 pg (26.0-34.0); MCHC 34.2 g/dL (31.0-37.0); MCV 96.2 fL (80.0-100.0); MEAN PLATELET VOLUME 10.9 fL (7.4-10.4); MONOCYTES 3.6 % (2-11); NEUTROPHIL ABS# 14.33 10x3/uL (1.56-6.13); NEUTROPHILS 85.2 % (40-80); PLATELET COUNT 157 10x3/uL (130-400); RBC 4.53 10x6/uL (4.00-5.40); RDW 13.6 % (11.5-14.5); WBC 16.8 10x3/uL (4.8-10.8)
[2021-02-28 18:34] LABS: CALC OSMOLALITY 289 mosm/kg (275-300); CALCIUM 9.1 mg/dL (8.5-10.1); CARBON DIOXIDE 29.2 mmol/L (21.0-32.0); CHLORIDE - SERUM 106 mmol/L (98-107); CREATININE - SERUM 0.8 mg/dL (0.6-1.3); GLUCOSE 227 mg/dL (74-106); INR 1.13 (0.85-1.17); POTASSIUM - SERUM 3.5 mmol/L (3.5-5.1); PROTIME 13.4 SECONDS (11.6-15.0); SODIUM 141 mmol/L (136-145); UREA NITROGEN 17 mg/dL (7-18); eGFR NON AFRICAN AMERICAN 80 mL/min (90-120)
[2021-02-28 18:55] LABS: ALBUMIN 2.5 g/dL (3.4-5.0); ALKALINE PHOSPHATASE 116 U/L (30-120); ALT (SGPT) 111 U/L (10-68); BILIRUBIN - TOTAL 0.33 mg/dL (0.2-1.3); CKMB 3.2 U/L (0.0-3.6); CREATINE KINASE 87 UL (21-215); PRO BNP 1360 pg/mL (0-125); PROTEIN - SERUM 6.6 g/dL (6.4-8.2)
[2021-02-28 18:57] LABS: TROPONIN-I 0.893 ng/mL (0.000-0.060)
[2021-02-28 19:00] VITALS: BP 143/74
[2021-02-28 21:00] VITALS: BP 147/102
[2021-02-28 22:00] VITALS: BP 140/85
--- NOTE | 2021-02-28 22:50 | NUR ---
REPORT GIVING TO BRITTANY RODRIGUEZ WITH VERBAL ACKNOWLEDGEMENT OBTAINED.
[2021-03-01 00:09] VITALS: BP 116/50
[2021-03-01 01:11] LABS: BILIRUBIN NEGATIVE (NEGATIVE); KETONE NEGATIVE (NEGATIVE); NITRITE NEGATIVE (NEGATIVE); UROBILINOGEN NORMAL mg/dL (< 2)
[2021-03-01 01:12] VITALS: BP 116/50; Ht 172.7 cm; Wt 100.5 kg
[2021-03-01 01:22] LABS: SARS-CoV-2 ANTIGEN NEGATIVE- SARS-COV-2 (NEGATIVE)
[2021-03-01 01:40] LABS: UDS - AMPHET NEGATIVE QUAL (NEGATIVE); UDS - BARB NEGATIVE QUAL (NEGATIVE); UDS - BENZO NEGATIVE QUAL (NEGATIVE); UDS - COCAINE NEGATIVE QUAL (NEGATIVE); UDS - OPIATE NEGATIVE QUAL (NEGATIVE); UDS - PCP NEGATIVE QUAL (NEGATIVE); UDS - THC NEGATIVE QUAL (NEGATIVE)
[2021-03-01 02:02] LABS: CKMB 1.6 U/L (0.0-3.6); CREATINE KINASE 71 UL (21-215)
[2021-03-01 02:05] LABS: TROPONIN-I 0.896 ng/mL (0.000-0.060)
[2021-03-01 05:04] VITALS: BP 119/43
[2021-03-01 06:00] LABS: BASOPHILS 0.1 % (0-2); EOSINOPHILS 0.1 % (0-7); HEMATOCRIT 38.5 % (36.0-48.0); HEMOGLOBIN 12.7 g/dL (12-16); IMMATURE GRANULOCYTES 0.8 % (0-5); LYMPHOCYTE ABS# 1.03 10x3/uL (1.18-3.74); LYMPHOCYTES 7.1 % (15-50); MCH 31.7 pg (26.0-34.0); MEAN PLATELET VOLUME 11.8 fL (7.4-10.4); MONOCYTES 3.6 % (2-11); NEUTROPHIL ABS# 12.72 10x3/uL (1.56-6.13); NEUTROPHILS 88.3 % (40-80); PLATELET COUNT 172 10x3/uL (130-400); RBC 4.01 10x6/uL (4.00-5.40); RDW 13.6 % (11.5-14.5); WBC 14.4 10x3/uL (4.8-10.8)
[2021-03-01 06:29] LABS: ALBUMIN 2.2 g/dL (3.4-5.0); ALKALINE PHOSPHATASE 98 U/L (30-120); BILIRUBIN - TOTAL 0.47 mg/dL (0.2-1.3); CARBON DIOXIDE 26.9 mmol/L (21.0-32.0); CHLORIDE - SERUM 102 mmol/L (98-107); CKMB 0.9 U/L (0.0-3.6); CREATINE KINASE 70 UL (21-215); CREATININE - SERUM 0.6 mg/dL (0.6-1.3); MAGNESIUM - SERUM 2.1 mg/dL (1.8-2.4); PROTEIN - SERUM 5.3 g/dL (6.4-8.2); SODIUM 137 mmol/L (136-145); UREA NITROGEN 13 mg/dL (7-18); eGFR NON AFRICAN AMERICAN > 90 mL/min (90-120)
[2021-03-01 06:30] LABS: ALT (SGPT) 83 U/L (10-68); CALC OSMOLALITY 285 mosm/kg (275-300); GLUCOSE 322 mg/dL (74-106); POTASSIUM - SERUM 4.5 mmol/L (3.5-5.1)
[2021-03-01 06:31] LABS: TROPONIN-I 0.592 ng/mL (0.000-0.060)
[2021-03-01 09:14] LABS: CHOL - HDL RATIO 1.9 ratio (2.3-4.1); LDL-HDL RATIO 0.7 ratio (1.5-3.5)
[2021-03-01 11:48] LABS: CKMB 1.2 U/L (0.0-3.6); CREATINE KINASE 74 UL (21-215); TROPONIN-I 0.562 ng/mL (0.000-0.060)
--- NOTE | 2021-03-01 14:22 | NUR ---
I have reviewed this patient and I concur with the Shift Assessment completed by the Licensed Practical Nurse today this shift.
--- NOTE | 2021-03-01 14:57 | NUR ---
PATIENT AAOX4, RESP EVEN AND NON LABORED, O2 IN PLACE, NO S/S OF DISTRESS, MEDICATIONS ADMINISTERED WITH NO COMPLICATIONS, TYLENOL ADMINISTERED FOR BACK PAIN, NO FURTHER NEEDS AT THIS TIME, HEMA NAYAK
[2021-03-01 20:37] VITALS: BP 128/54
--- NOTE | 2021-03-02 01:07 | NUR ---
PT RIGHT HAND IV INFILTRATED DURING DOXYCYCLINE INFUSION. IV REMOVED, RIGHT ARM ELEVATED, ICE APPLIED. NEW IV PLACED IN LEFT FOREARM.
[2021-03-02 05:18] VITALS: BP 120/48
[2021-03-02 06:10] LABS: BASOPHILS 0.1 % (0-2); EOSINOPHILS 0.5 % (0-7); HEMATOCRIT 38.5 % (36.0-48.0); HEMOGLOBIN 12.9 g/dL (12-16); IMMATURE GRANULOCYTES 1.1 % (0-5); LYMPHOCYTE ABS# 1.66 10x3/uL (1.18-3.74); LYMPHOCYTES 14.9 % (15-50); MCH 31.6 pg (26.0-34.0); MCHC 33.5 g/dL (31.0-37.0); MCV 94.4 fL (80.0-100.0); MEAN PLATELET VOLUME 11.4 fL (7.4-10.4); MONOCYTES 5.1 % (2-11); NEUTROPHIL ABS# 8.75 10x3/uL (1.56-6.13); NEUTROPHILS 78.3 % (40-80); PLATELET COUNT 174 10x3/uL (130-400); RBC 4.08 10x6/uL (4.00-5.40); RDW 13.4 % (11.5-14.5); WBC 11.2 10x3/uL (4.8-10.8)
[2021-03-02 06:28] LABS: ALBUMIN 2.1 g/dL (3.4-5.0); ALKALINE PHOSPHATASE 96 U/L (30-120); BILIRUBIN - TOTAL 0.32 mg/dL (0.2-1.3); CALCIUM 8.6 mg/dL (8.5-10.1); CARBON DIOXIDE 28.1 mmol/L (21.0-32.0); CHLORIDE - SERUM 101 mmol/L (98-107); CREATININE - SERUM 0.7 mg/dL (0.6-1.3); POTASSIUM - SERUM 3.9 mmol/L (3.5-5.1); PROTEIN - SERUM 6.1 g/dL (6.4-8.2); SODIUM 136 mmol/L (136-145); UREA NITROGEN 16 mg/dL (7-18); eGFR NON AFRICAN AMERICAN > 90 mL/min (90-120)
[2021-03-02 06:39] LABS: ALT (SGPT) 59 U/L (10-68); CALC OSMOLALITY 287 mosm/kg (275-300); GLUCOSE 370 mg/dL (74-106)
[2021-03-02 08:10] VITALS: BP 113/53
[2021-03-02 09:12] LABS: HEPATITIS C ANTIBODY <0.1 (0.0-0.9)
--- NOTE | 2021-03-02 10:02 | NUR ---
PATIENT AAOX4, RESP EVEN AND NON LABORED, NO S/S OF DISTRESS, MEDICATIONS ADMINISTERED WITH NO COMPLICATIONS, NO FURTHER NEEDS AT THIS TIME, IV ANTIBIOTICS INFUSING, CLIR, BLP
--- NOTE | 2021-03-02 13:25 | NUR ---
I have reviewed this patient and I concur with the Shift Assessment completed by the Licensed Practical Nurse today this shift.
--- NOTE | 2021-03-02 13:26 | NUR ---
I have reviewed this patient and I concur with the Shift Assessment completed by the Licensed Practical Nurse today this shift.
[2021-03-02 20:52] VITALS: BP 123/57
[2021-03-03 01:38] VITALS: BP 106/46
[2021-03-03 05:44] VITALS: BP 119/43
[2021-03-03 06:01] LABS: BASOPHILS 0.1 % (0-2); EOSINOPHILS 0.2 % (0-7); HEMATOCRIT 38.1 % (36.0-48.0); HEMOGLOBIN 12.9 g/dL (12-16); LYMPHOCYTE ABS# 1.54 10x3/uL (1.18-3.74); LYMPHOCYTES 15.2 % (15-50); MCH 31.6 pg (26.0-34.0); MCHC 33.9 g/dL (31.0-37.0); MCV 93.4 fL (80.0-100.0); MEAN PLATELET VOLUME 11.5 fL (7.4-10.4); NEUTROPHIL ABS# 7.82 10x3/uL (1.56-6.13); NEUTROPHILS 77.5 % (40-80); PLATELET COUNT 200 10x3/uL (130-400); RBC 4.08 10x6/uL (4.00-5.40); RDW 13.3 % (11.5-14.5); WBC 10.1 10x3/uL (4.8-10.8)
[2021-03-03 06:12] LABS: ALBUMIN 2.2 g/dL (3.4-5.0); ALKALINE PHOSPHATASE 99 U/L (30-120); ALT (SGPT) 50 U/L (10-68); BILIRUBIN - TOTAL 0.32 mg/dL (0.2-1.3); CALC OSMOLALITY 290 mosm/kg (275-300); CALCIUM 8.5 mg/dL (8.5-10.1); CARBON DIOXIDE 28.2 mmol/L (21.0-32.0); CHLORIDE - SERUM 100 mmol/L (98-107); CREATININE - SERUM 0.8 mg/dL (0.6-1.3); GLUCOSE 399 mg/dL (74-106); MAGNESIUM - SERUM 2.2 mg/dL (1.8-2.4); POTASSIUM - SERUM 3.7 mmol/L (3.5-5.1); PROTEIN - SERUM 6.4 g/dL (6.4-8.2); SODIUM 136 mmol/L (136-145); UREA NITROGEN 19 mg/dL (7-18); eGFR NON AFRICAN AMERICAN 80 mL/min (90-120)
--- NOTE | 2021-03-03 07:20 | NUR ---
Lying in bed, awake/alert/oriented, T/R self ad marcy, cont of B/B with BRPs per self ad marcy, c/o sharp LLQ pain, medicated as ordered (see MAR), call light/phone/water within reach, no s/s of acute distress observed.
[2021-03-03 08:07] VITALS: BP 103/53
[2021-03-03 12:06] VITALS: BP 136/57
--- NOTE | 2021-03-03 16:00 | NUR ---
Susan Dennis r/t fsbs 469
--- NOTE | 2021-03-03 16:15 | NUR ---
Susan Dennis r/t fsbs
--- NOTE | 2021-03-03 16:25 | NUR ---
Received return call from SCOTTIE Dennis, reported FSBS 463, informed him her ss called for 20 units Humalog and to call him, no new orders provided at this time.
[2021-03-03 16:55] VITALS: BP 138/50
[2021-03-03 20:00] VITALS: BP 126/45
[2021-03-04] VITALS: BP 127/48
--- NOTE | 2021-03-04 02:16 | NUR ---
PT A/O X4 RR E/U. THE PT'S ROOM IS UNBARABLY HOT. PT STATED ITS BEEN THIA WAY ALL DAY. SHE ASKED TO MOVE OR HAVE IT FIXED. UPON INSPECTION THIS NURSE DISCOVERED THAT THE AC IS BLOWING HOT AIR. SPOKE [facility] CHARGE NURSE, JAYESH AND WE MOVED PT TO 2130. PT VERY THANKFUL. DC'D INFILTRATED 22G IN LOWER LEFT FOREARM. REPLACED IT WITH A 20G IN LFA SL. PT DENIES ANY PAIN OR FURTHER NEEDS AT THIS TIME. BED LOW CALL LIGHT WITHIN REACH. WILL CONTINUE TO MONITOR
[2021-03-04 04:00] VITALS: BP 112/45
[2021-03-04 05:49] LABS: BASOPHILS 0.1 % (0-2); EOSINOPHILS 0.5 % (0-7); HEMATOCRIT 38.2 % (36.0-48.0); HEMOGLOBIN 12.9 g/dL (12-16); IMMATURE GRANULOCYTES 1.5 % (0-5); LYMPHOCYTE ABS# 1.74 10x3/uL (1.18-3.74); LYMPHOCYTES 18.8 % (15-50); MCH 31.8 pg (26.0-34.0); MCHC 33.8 g/dL (31.0-37.0); MCV 94.1 fL (80.0-100.0); MEAN PLATELET VOLUME 11.4 fL (7.4-10.4); NEUTROPHIL ABS# 6.57 10x3/uL (1.56-6.13); NEUTROPHILS 71.1 % (40-80); PLATELET COUNT 189 10x3/uL (130-400); RBC 4.06 10x6/uL (4.00-5.40); RDW 13.3 % (11.5-14.5); WBC 9.3 10x3/uL (4.8-10.8)
[2021-03-04 06:19] LABS: ALBUMIN 2.1 g/dL (3.4-5.0); ANION GAP 11.3 mmol/L (8-16); BILIRUBIN - TOTAL 0.24 mg/dL (0.2-1.3); CALCIUM 8.3 mg/dL (8.5-10.1); CARBON DIOXIDE 28.5 mmol/L (21.0-32.0); CREATININE - SERUM 0.9 mg/dL (0.6-1.3); MAGNESIUM - SERUM 1.9 mg/dL (1.8-2.4); POTASSIUM - SERUM 3.8 mmol/L (3.5-5.1); PROTEIN - SERUM 6.2 g/dL (6.4-8.2)
--- NOTE | 2021-03-04 06:19 | NUR ---
I have reviewed this patient and I concur with the Shift Assessment completed by the Licensed Practical Nurse today this shift.
--- NOTE | 2021-03-04 07:50 | NUR ---
Lying in bed, awake/alert/oriented, T/R self ad marcy, cont of B/B with BRPs per self ad marcy, c/o sharp RLQ abd pain rated 7/10, medicated as ordered (see MAR), declined medication at this time, call light/phone/water within reach, no s/s of acute distress observed.
--- NOTE | 2021-03-04 08:00 | CN ---
PATIENT NAME:SEJAL CHAIREZ MEDICAL RECORD: [id number] : 66 LOCATION:. D.2131 ADMIT DATE: 02/28/21 ACCOUNT: [id number] CONSULTING PHYSICIAN: JASON RIDLEY MD REFERRING PHYSICIAN: SUSAN BAILEY MD DATE OF CONSULTATION: 03/01/2021 HISTORY OF PRESENT ILLNESS: A 50-year-old female with a known history of coronary artery disease, status post intervention of the LAD, admitted with cough, subjective fever and chills, shortness of breath, onset couple of days ago, was previously hospitalized with similar symptomatology, found to have elevated troponin. We are asked to see her concerning cardiovascular status. PAST MEDICAL HISTORY: Includes; 1. History of hypertension. 2. Hyperlipidemia. 3. Diabetes mellitus. 4. Coronary artery disease. 5. Obstructive pulmonary disease. 6. Dyslipidemia. MEDICATIONS: Typically include insulin Lantus 25 units at bedtime, 100 units t.i.d., tamoxifen 20 mg p.o. daily, Precose 50 mg p.o. t.i.d., montelukast 10 p.o. every day, Bumex 2 mg p.o. every day, Topamax unknown dose, Cymbalta 30 b.i.d., gabapentin 800 t.i.d., pravastatin 20 every day, albuterol 2 puffs every 4 hours, DuoNeb every 6 hours. ALLERGIES: PENICILLIN, AZITHROMYCIN, LEVAQUIN. SOCIAL HISTORY: Smokes about a pack a day. Nondrinker. No set exercise program. Easily able to take care of all her ADLs. REVIEW OF SYSTEMS: The patient reports easy bruising but reports no swollen glands. The patient reports no fever, no night sweats, no significant weight gain, no significant weight loss. No significant exercise tolerance. The patient reports no dry eyes, no irritation, no vision change. Patient reports no difficulty hearing and no ear pain. Patient reports no frequent nose bleeds or nose and sinus problems. Patient reports on arm pain on exertion. No shortness of breath while lying down. No history of heart murmur. Patient reports no cough, no wheezing or coughing up blood. Patient reports no abdominal pain, no vomiting. Normal appetite. No diarrhea and not vomiting blood. No nausea and no constipation. Patient reports no incontinence. No difficulty urinating. No hematuria. No increased frequency. Patient reports no muscle aches. No weakness, no arthralgias, no back pain. No swelling of the extremities. Patient reports no abnormal mole, no jaundice, no rashes. Reports no loss of consciousness. No weakness and no numbness. No seizures, dizziness, or headaches. The patient reports no depression, no sleep disturbance, feeling safe in a relationship and no alcohol abuse. Patient reports on fatigue. Reports no runny nose or sinus pressure. No itching, no hives, and no frequent sneezing. PHYSICAL EXAMINATION: GENERAL: No acute distress, appears stated age. VITAL SIGNS: Blood pressure 119/43, pulse 94 and regular. HEENT: Normocephalic, atraumatic. CONSULT REPORT [id number] SEJAL CHAIREZ NECK: No JVD or bruit. HEART: Regular. S4 gallop is noted. LUNGS: Expiratory wheezes noted in both lung wolff with decreased air movement. ABDOMEN: Soft, nontender. EXTREMITIES: Pulse 2+. No edema. DIAGNOSTIC DATA: EKG shows nonspecific ST-T changes inferolaterally. IMPRESSION AND PLAN: Non-ST elevation myocardial infarction type 2 with EKG changes, this may be related to her intermittent hypoxia with demand symptomatology. Last intervention was approximately 4 years ago, so cannot exclude contribution from progression of southern ute disease versus other coronary disease. I would like to treat her acute illness currently. We will need evaluation of coronary ischemia at some point in the near future. TRANSINT:[id number] Voice Confirmation ID: [id number] DOCUMENT ID: [id number] JASON RIDLEY MD at 0800 CC: [id number] DICTATION DATE: 03/01/21 1048 SIGN WIRER: 03/01/21 1157 ADM IN [facility] [address] [place] [address]
[2021-03-04 08:23] VITALS: BP 141/53
--- NOTE | 2021-03-04 09:02 | NUR ---
Skein Tier Mone called, Covid PCR is negative.
--- NOTE | 2021-03-04 09:06 | NUR ---
Spoke with IC MICHAEL Burton who states from her perspective isolation may be discontinued if ok with physician
--- NOTE | 2021-03-04 09:13 | NUR ---
Paged Dr. Vallejo
--- NOTE | 2021-03-04 09:34 | NUR ---
LUCY Ayala states okay to discontinue isolation, isolation discontinued at this time.
[2021-03-04 12:22] VITALS: BP 115/48
[2021-03-04 16:04] VITALS: BP 111/41
--- NOTE | 2021-03-04 16:30 | NUR ---
FSBS WAS 430, RECHECKED WAS 444, ORDER RCVD FOR STAT GLUCOSE FROM THE LAB, [id number] FOR RESULTS
--- NOTE | 2021-03-04 17:50 | NUR ---
Stat glucose 493, paged LUCY Bhatia.
--- NOTE | 2021-03-04 17:55 | NUR ---
Reported result to LUCY Bhatia and received order to do FSBS q4h using high ss
[2021-03-04 20:56] VITALS: BP 148/68
[2021-03-05 00:37] VITALS: BP 163/64
--- NOTE | 2021-03-05 00:49 | NUR ---
LUCY HICKS CALLED IN REFRENCE TO PT. NEW ORDERS ESTABLISHED. FALL PRECAUTIONS IN PLACE. VSS. RR E/U. NO ACUTE S/S OF DISTRESS. WILL CONTINUE TO MONITOR.
--- NOTE | 2021-03-05 03:39 | NUR ---
I have reviewed this patient and I concur with the Shift Assessment completed by the Licensed Practical Nurse today this shift.
[2021-03-05 05:25] LABS: BASOPHILS 0.1 % (0-2); EOSINOPHILS 0.4 % (0-7); HEMATOCRIT 44.8 % (36.0-48.0); HEMOGLOBIN 14.7 g/dL (12-16); IMMATURE GRANULOCYTES 2.1 % (0-5); LYMPHOCYTE ABS# 1.89 10x3/uL (1.18-3.74); LYMPHOCYTES 18.6 % (15-50); MCH 31.5 pg (26.0-34.0); MCHC 32.8 g/dL (31.0-37.0); MCV 95.9 fL (80.0-100.0); MEAN PLATELET VOLUME 11.1 fL (7.4-10.4); MONOCYTES 6.8 % (2-11); NEUTROPHIL ABS# 7.31 10x3/uL (1.56-6.13); PLATELET COUNT 197 10x3/uL (130-400); RBC 4.67 10x6/uL (4.00-5.40); RDW 13.5 % (11.5-14.5); WBC 10.2 10x3/uL (4.8-10.8)
[2021-03-05 05:26] VITALS: BP 132/58
[2021-03-05 05:50] LABS: ALBUMIN 2.6 g/dL (3.4-5.0); ANION GAP 13.8 mmol/L (8-16); BILIRUBIN - TOTAL 0.32 mg/dL (0.2-1.3); CALCIUM 9.1 mg/dL (8.5-10.1); CARBON DIOXIDE 27.6 mmol/L (21.0-32.0); CREATININE - SERUM 1.1 mg/dL (0.6-1.3); POTASSIUM - SERUM 3.4 mmol/L (3.5-5.1); PROTEIN - SERUM 7.1 g/dL (6.4-8.2)
--- NOTE | 2021-03-05 07:20 | NUR ---
Lying in bed with eyes closed, respirations slow/deep/even, rouses easily with verbal stimulus, T/R self ad marcy, cont of B/B with BRPs per self ad marcy, denies pain/other discomfort at this time, call light/phone/water within reach, no s/s of acute distress observed.
[2021-03-05 07:48] VITALS: BP 134/51
[2021-03-05 11:41] VITALS: BP 158/69
[2021-03-05 16:56] VITALS: BP 155/44
[2021-03-05 20:00] VITALS: BP 137/70
--- NOTE | 2021-03-05 20:00 | NUR ---
PT IN HER ROOM WITH HER SON WATCHING TV. IN FOR ROUNDS AND ASSESSMENT AND AND THEN BS. HER BS IS 409 AND SHE RECEIVED 28 UNITS OF INSULIN. SHE IS WALKING IN THE HALLS WITH HER SON AT HER SIDE. PT HAS BEEN CRYING B/C HER PUP WAS KILLED TODAY. PT IS ON TELEMETRY AND IS RUNNING SINUS RHYTHM. PT HAS MANY BRUISES ON HER BODY. SHE GETS MOST OF HER INSULIN IN HER BELLY. PT HAS MANY THINGS TO SNACK ON IN HER ROOM.
--- NOTE | 2021-03-05 22:00 | NUR ---
PT IS GETTING HER MEDS. SHE HAS MANY. SON STILL AT BS AND IS PLANNING TO SPEND THE NIGHT. PT HAS NO C/O AT THIS TIME.
[2021-03-06] VITALS: BP 109/57
--- NOTE | 2021-03-06 | NUR ---
BS DONE. RESULTS 310 PT RECEIVED 20 UNITS OF INSULIN. PT IV ANTIBIOTIC HAS INFUSED. PT IS WONDERING WHAT HER NEXT MED IS. PT IS DOZING ON AND OFF WATCHING TV WITH HER SON. SHE ASKED FOR A SANDWICH AND ONE WAS TAKEN TO HER.
--- NOTE | 2021-03-06 04:20 | NUR ---
PT AWAKE FOR BLOOD SUGAR. THIS 4 HOURS IT IS 336 WITH 20 UNITS OF INSULIN BEING GIVEN.
--- NOTE | 2021-03-06 07:30 | NUR ---
Lying in bed, awake/alert/oriented, T/R self ad marcy, cont of B/B with BRPs per self ad marcy, c/o sharp LLQ abd pain rated 6/10, medicated as ordered (see MAR), call light/phone/water within reach, no s/s of acute distress observed.
[2021-03-06 07:44] LABS: BASOPHILS 0.1 % (0-2); EOSINOPHILS 0.3 % (0-7); HEMATOCRIT 47.3 % (36.0-48.0); HEMOGLOBIN 15.7 g/dL (12-16); IMMATURE GRANULOCYTES 2.5 % (0-5); LYMPHOCYTE ABS# 3.07 10x3/uL (1.18-3.74); LYMPHOCYTES 19.6 % (15-50); MCH 31.4 pg (26.0-34.0); MCHC 33.2 g/dL (31.0-37.0); MCV 94.6 fL (80.0-100.0); MEAN PLATELET VOLUME 11.7 fL (7.4-10.4); MONOCYTES 5.5 % (2-11); NEUTROPHIL ABS# 11.29 10x3/uL (1.56-6.13); RDW 13.3 % (11.5-14.5)
[2021-03-06 07:45] LABS: PLATELET COUNT 256 10x3/uL (130-400); WBC 15.7 10x3/uL (4.8-10.8)
[2021-03-06 08:02] LABS: ALBUMIN 2.7 g/dL (3.4-5.0); ANION GAP 15.2 mmol/L (8-16); BILIRUBIN - TOTAL 0.28 mg/dL (0.2-1.3); CALCIUM 8.8 mg/dL (8.5-10.1); CARBON DIOXIDE 26.1 mmol/L (21.0-32.0); CREATININE - SERUM 0.9 mg/dL (0.6-1.3); PROTEIN - SERUM 7.4 g/dL (6.4-8.2)
[2021-03-06 08:03] LABS: POTASSIUM - SERUM 4.3 mmol/L (3.5-5.1)
[2021-03-06 08:32] VITALS: BP 131/93
[2021-03-06 12:25] VITALS: BP 116/49
[2021-03-06 17:51] VITALS: BP 119/45
--- NOTE | 2021-03-06 20:30 | NUR ---
IN PT ROOM FOR BLOOD SUGAR AND TO GIVE MEDS. PT SNACKING. SHE HAS A LEFT FOREARM SL THAT IS USED FOR ANTIBIOTICS. SHE HAS MULTIPLE BRUISES ON HER BODY. PT SON IS IN THE ROOM WITH HER. ASSESSMENT COMLETE. I TALKED TO HER ABOUT ALL THE SNACKING SHE IS DOING. SHE TELLS ME THAT ALL THAT FOOD IS FOR HER SON. RIGHT I WAS LEAVING HER ROOM HER DAUGHTER CAME IN WITH PIZZA AND BREADSTICKS. PT STATES ALL THE FOOD IS FOR THE SON. I FORGOT SOMETHING IN THE ROOM AND WALKED IN TO GET IT AND PT WAS PICKING AT A BREADSTICK. I TRIED TO TALK TO THIS PT ABOUT DIET, EXERCISE AND WORKING ON HER DIABETES. SHE ALREADY KNOWS EVERYTHING SO THE EDUCATION WAS CUT SHORT.
--- NOTE | 2021-03-06 22:31 | NUR ---
PT IV INFILTRATED DUREING HER ROCEPHIN IV MED. MEDICATION WAS STOPPED.
--- NOTE | 2021-03-06 22:50 | NUR ---
NEW IV STARTED BY MICHAEL CASTLE A 20 G IN PT RIGHT FOREARM. THE ROCEPHIN WAS COMPLETED AND THE IV WAS SL. PT SNACKING ON FOOD IN HER ROOM.
[2021-03-06 23:28] VITALS: BP 119/41
[2021-03-07] VITALS: BP 139/79
--- NOTE | 2021-03-07 00:40 | NUR ---
BS READING THIS FOUR HOURS IS 535. A STAT BS WAS ORDERED FROM THE LAB. PT RAN A BLOOD SUGAR ON HER OWN PERSONAL MACHINE AND SHE TELLS ME IT "ONLY" 474. THERE IS FOOD IN THE ROOM THAT THE PT SAYS IS FOR HER SON BUT SHE IS EATING EVERY TIME I ENTER THE ROOM. SHE IS SITTING ON THE SIDE OF THE BED PLAYING SOME VIDEO GAME WITH HER SON AND HAS NO C/O.
--- NOTE | 2021-03-07 01:12 | NUR ---
STAT BS DRAWN
--- NOTE | 2021-03-07 01:44 | NUR ---
LAB CALLED WITH BS CRITICAL LAB 557. CALLED LUCY HICKS TO LET HIM KNOW WHAT HAD BEEN GOING ON WITH HER. HE STATES PT HAS BEEN ON DECADRON FOR 7 DAYS AND TO ASK AGUSTIN ABOUT DECREASING THE DOSAGE. WILL PASS THIS ALONG TO THE DAY SHIFT. FABIOLA ASKED THAT HE BE CALLED BACK THE NEXT BS IF IT IS STILL SO HIGH.
--- NOTE | 2021-03-07 02:35 | NUR ---
PT AND SON ARE WALKING THE HALLS. PT SAYS THIS WILL LOWER HER BS. NO C/O AT THIS TIME
[2021-03-07 04:00] VITALS: BP 130/54
--- NOTE | 2021-03-07 05:31 | NUR ---
PT IS IN BED NOW READY TO GO TO SLEEP. SHE HAS HER [address] VIA SD. NO C/O OR NEEDS AT THIS TIME
[2021-03-07 07:37] LABS: BASOPHILS 0.1 % (0-2); EOSINOPHILS 0.2 % (0-7); HEMOGLOBIN 15.2 g/dL (12-16); IMMATURE GRANULOCYTES 1.9 % (0-5); LYMPHOCYTE ABS# 3.16 10x3/uL (1.18-3.74); LYMPHOCYTES 18.3 % (15-50); MCH 31.7 pg (26.0-34.0); MCHC 33.8 g/dL (31.0-37.0); MCV 93.9 fL (80.0-100.0); MEAN PLATELET VOLUME 11.6 fL (7.4-10.4); MONOCYTES 4.6 % (2-11); NEUTROPHIL ABS# 12.94 10x3/uL (1.56-6.13); NEUTROPHILS 74.9 % (40-80); PLATELET COUNT 246 10x3/uL (130-400); RBC 4.79 10x6/uL (4.00-5.40); RDW 13.2 % (11.5-14.5); WBC 17.3 10x3/uL (4.8-10.8)
[2021-03-07 07:59] LABS: ALBUMIN 2.7 g/dL (3.4-5.0); ANION GAP 13.7 mmol/L (8-16); BILIRUBIN - TOTAL 0.22 mg/dL (0.2-1.3); CALCIUM 8.9 mg/dL (8.5-10.1); CARBON DIOXIDE 27.1 mmol/L (21.0-32.0); CREATININE - SERUM 0.9 mg/dL (0.6-1.3); POTASSIUM - SERUM 3.8 mmol/L (3.5-5.1); PROTEIN - SERUM 6.3 g/dL (6.4-8.2)
[2021-03-07 08:22] VITALS: BP 115/53
[2021-03-07] MEDS ORDERED: OMNICEF300 MG PO (08:34)
[2021-03-07] MEDS ORDERED: VIBRAMYCIN 100100 MG PO (08:34)
[2021-03-07] MEDS ORDERED: VENTOLIN HFA [SP8 GM INH (08:35)
[2021-03-07] MEDS ORDERED: NICODERM CQ1 EAC3 TRANSDERM (08:36)
[2021-03-07] MEDS ORDERED: IPRAT-ALBUT 0.5-3 ML UPD (08:36)
[2021-03-07] MEDS ORDERED: DULERA 200 MCG8.8 GM INH (08:37)
[2021-03-07] MEDS ORDERED: PROTONIX40 MG PO (08:38)
[2021-03-07] MEDS ORDERED: FLORAJEN DIGES1 EACH PO (08:38)
[2021-03-07] MEDS ORDERED: LANTUS SOL100 UNIT/2 SC (08:39)
[2021-03-07] MEDS ORDERED: NYSTATIN OINTME15 GM TOPICAL (08:40)
[2021-03-07] MEDS ORDERED: PREDNISONE10 MG PO (08:40)
--- NOTE | 2021-03-07 10:47 | NUR ---
SALINE LOCK TAKEN OUT, DISCHARGE PAPERS WITH PATIENT AND SON AND TO CAR VIA W/C FOR DISCHARGE HOME.
--- NOTE | 2021-03-07 13:36 | MORECARE ---
CASE MANAGEMENT DISCHARGE SUMMARY PATIENT: SEJAL CHAIREZ UNIT: [id number] ADM DATE: 02/28/21 AGE: 50 : 68 SEX: F ROOM/BED: [facility] AUTHOR: SOFI,DOC PHYSICIAN: REFERRING PHYSICIAN: SUSAN BAILEY MD DATE OF SERVICE: 03/07/21 Case Management Discharge Planning Summary DCP REVIEW SUMMARY ANTICIPATED D/C DATE: 03/07/2021 EXPECTED LOS : 7 CASE STATUS: DCP Initiated INITIAL REVIEW: 02/28/2021 INITIAL REVIEWER: Yanet Lamb FINAL DISCHARGE DISPOSITION: : FINAL REVIEWER: FINAL REVIEW DATE: DCP Focus Questions & Answers DCP Screen QUESTION: ANSWER High Risk Factors: : None Walking limitation: Patient stated self rated walking limitation present? : No Age: : 45 - 64 Prior living environment: : Lives with others Disability ranking: : Grade 1: No significant disability DCP Evaluation QUESTION: ANSWER Patient's ability to cope with chronic illness : d. No chronic illness Would patient like to participate in any Care Coordination programs (if applicable): : Not applicable Mental health screen: : No mental health history DCP Re-evaluation QUESTION: ANSWER Would patient like to participate in any Care Coordination programs (if applicable): : Not applicable PATIENT: SEJAL CHAIREZ ENCOUNTER: [id number] MEDICAL RECORD#: [id number] ADMISSION DATE: 02/28/2021 DISCHARGE DATE: 03/07/2021 ATTENDING MD: SUSAN SEQUEIRA : AGE: 50 MARITAL STATUS: W DC PLAN ID: [id number] FACILITY: [facility] PRINTED ON: 03/07/21 13:36 CT All edits/amendments must be made on the electronic document DICTATION DATE: 03/07/21 1336 SUPERVISOR BACKFILLING: DM 03/07/21 1336 RPT#: [id number] DC DATE:03/07/21 STATUS: DIS IN [id number] [place] [address] END OF REPORT
--- NOTE | 2021-03-07 13:51 | MORECARE ---
CASE MANAGEMENT DISCHARGE SUMMARY PATIENT: SEJAL CHAIREZ UNIT: [id number] ADM DATE: 02/28/21 AGE: 50 : 68 SEX: F ROOM/BED: D.7172 AUTHOR: ANA FARAH PHYSICIAN: REFERRING PHYSICIAN: SUSAN BAILEY MD DATE OF SERVICE: 03/07/21 Case Management Discharge Planning Summary DCP REVIEW SUMMARY ANTICIPATED D/C DATE: 03/07/2021 EXPECTED LOS : 7 CASE STATUS: DCP Initiated INITIAL REVIEW: 02/28/2021 INITIAL REVIEWER: Yanet Lamb FINAL DISCHARGE DISPOSITION: : FINAL REVIEWER: FINAL REVIEW DATE: DCP Focus Questions & Answers DCP Screen QUESTION: ANSWER High Risk Factors: : None Walking limitation: Patient stated self rated walking limitation present? : No Age: : 45 - 64 Prior living environment: : Lives with others Disability ranking: : Grade 1: No significant disability DCP Evaluation QUESTION: ANSWER Patient and/or caregiver agree upon recommended discharge plan? : Yes Family / Caregiver's ability to cope with chronic illness: : a. Adequate (ability to meet patient's medical needs, ensures patient attends medical appts.) Patient's current cognitive status: : *Oriented to person, place, situation, time and present Patient gives permission to discuss discharge plans with: (name, relationship and number) : SHAZIA CHAIREZ-PABLITO [phone] Patient's ability to cope with chronic illness : a. Adequate (0-3 ED visits in 6 mos., adequate financial resources, attends scheduled appts.) Does the patient have the ability to pay for or attain post discharge needs / services? : Yes Functional screen assessment: : Basic needs can adequately be met by self Family / Caregiver's ability to cope with chronic illness: : a. Adequate (ability to meet patient's medical needs, ensures patient attends medical appts.) Physical Status: : Independent with ADL's Equipment needed for post hospitalization: : None Is there a likelihood that the patient will require additional services to return to the preadmission environment? : No Living Arrangements: : Home with others Results of this evaluation have been discussed with: : Patient Results of this evaluation have been discussed with: : Children Patient with capacity for self-care or can be cared for in same environment as prior to hospitalization? : Yes Living arrangements comments: : ADULT SON LIVES WITH PATIENT Baseline cognitive status: : *Oriented to person, place, situation, time and present Physical environment modification needed / anticipated for discharge: : No Medication Management: : Patient states they do have transportation to slat pickler medications Medication Management: : Patient states can afford medications Planned post hospital services available for patient? : No Pharmacy name(s): : [facility] Planned post hospital services covered by insurance plan? : No Does Patient have transportation to get home and to follow-up medical appointments when discharged from the hospital? : Yes Would patient like to participate in any Care Coordination programs (if applicable): : Not applicable Does the patient have electricity at home? : Yes Does the patient have running water in their house? : Yes Equipment in use: : None Other Equipment comments: : PT HAS SINGLE LEG CANE IF NEEDED Mental health screen: : No mental health history Psychosocial status: : Independent adult (18-64) Abuse/Neglect: : None Resources / Services in place: : None Problems identified by the patient regarding discharge: : NONE DCP Re-evaluation QUESTION: ANSWER Would patient like to participate in any Care Coordination programs (if applicable): : Not applicable PATIENT: SEJAL CHAIREZ ENCOUNTER: [id number] MEDICAL RECORD#: [id number] ADMISSION DATE: 02/28/2021 DISCHARGE DATE: 03/07/2021 ATTENDING MD: SUSAN SEQEUIRA : AGE: 50 MARITAL STATUS: W DC PLAN ID: [id number] FACILITY: [facility] PRINTED ON: 03/07/21 13:51 CT All edits/amendments must be made on the electronic document DICTATION DATE: 03/07/21 135 STOCK TRACER: FLAKITA 03/07/21 1351 RPT#: [id number] DC DATE:03/07/21 STATUS: DIS IN [facility] [address] [place] [address] END OF REPORT
--- NOTE | 2021-03-07 14:09 | MORECARE ---
CASE MANAGEMENT DISCHARGE SUMMARY PATIENT: SEJAL CHAIREZ UNIT: [id number] ADM DATE: 02/28/21 AGE: 50 : 66 SEX: F ROOM/BED: D.9654 AUTHOR: ANA FARAH PHYSICIAN: REFERRING PHYSICIAN: SUSAN BAILEY MD DATE OF SERVICE: 03/07/21 Case Management Discharge Planning Summary COMMENTS ENTERED DATE: 03/07/21 13:46 CT COMMENT TYPE: Discharge Planning REVIEWER: Yanet Lamb CM MET WITH PATIENT THIS AM TO DISCUSS DISCHARGE PLANNING AND OFFER AVAILABILITY OF NEEDED SERVICES. PT STATES THAT SHE LIVES AT HOME WITH HER ADULT SON WHO WAS PRESENT IN THE ROOM. IDENTIFIED SHAZIA CHAIREZ. CM VERIFIED ADDRESS AND SAFE RETURN UPON PATIENTS DISCHARGE. PATIENT DENIES NEED FOR TRANSPORTATION HOME AND STATES THAT SHE HAS FUNDS FOR MEDICATION OR NEEDED FOLLOW UP CARE. CM DISCUSSED WITH PATIENT THE NEED FOR HOME HEALTH, REHAB SERVICES, AND ADDITIONAL MEDICAL EQUIPMENT. PT STATES THAT SHE WOULD LIKE HOME OXYGEN AND POSSIBLY A WALKER. CM INFORMED PATIENT THAT HER WALK TEST PERFORMED DID NOT INDICATE A NEED FOR HOME OXYGEN, BUT SHE COULD LOOK AT THE OPTION OF SELF PAY. CM INQUIRED FROM LOCAL DME AND QUOTED THE AMOUNTS TO PATIENT. CM ALSO IMFORMED PATIENT THAT SHE COULD PURCHASE A WALKER AT LOCAL [employer] (WITH REMINDER TO CHECK THE SAFELY OF USED EQUIPMENT). PATIENT AND SON BOTH FEEL THEY CAN HANDLE HIS CARE WHEN DISCHARGED AND DO NOT NEED ADDITIONAL SERVICES AT THIS TIME. TRANSPORTATION HOME WILL BE PROVIDED BY SON. ERIS FORM SIGNED AND PLACED ON PATINENT CHART. VAP REVIEW SUMMARY ANTICIPATED D/C DATE: 03/07/2021 EXPECTED LOS : 7 CASE STATUS: DCP Initiated INITIAL REVIEW: 02/28/2021 INITIAL REVIEWER: Yanet Lamb FINAL DISCHARGE DISPOSITION: : FINAL REVIEWER: FINAL REVIEW DATE: DCP Focus Questions & Answers DCP Screen QUESTION: ANSWER High Risk Factors: : None Walking limitation: Patient stated self rated walking limitation present? : No Age: : 45 - 62 Prior living environment: : Lives with others Disability ranking: : Grade 1: No significant disability DCP Evaluation QUESTION: ANSWER Patient and/or caregiver agree upon recommended discharge plan? : Yes Family / Caregiver's ability to cope with chronic illness: : a. Adequate (ability to meet patient's medical needs, ensures patient attends medical appts.) Patient's current cognitive status: : *Oriented to person, place, situation, time and present Patient gives permission to discuss discharge plans with: (name, relationship and number) : SHAZIA CHAIREZ-SON [phone] Patient's ability to cope with chronic illness : a. Adequate (0-3 ED visits in 6 mos., adequate financial resources, attends scheduled appts.) Does the patient have the ability to pay for or attain post discharge needs / services? : Yes Functional screen assessment: : Basic needs can adequately be met by self Family / Caregiver's ability to cope with chronic illness: : a. Adequate (ability to meet patient's medical needs, ensures patient attends medical appts.) Physical Status: : Independent with ADL's Equipment needed for post hospitalization: : None Is there a likelihood that the patient will require additional services to return to the preadmission environment? : No Living Arrangements: : Home with others Results of this evaluation have been discussed with: : Patient Results of this evaluation have been discussed with: : Children Patient with capacity for self-care or can be cared for in same environment as prior to hospitalization? : Yes Living arrangements comments: : ADULT SON LIVES WITH PATIENT Baseline cognitive status: : *Oriented to person, place, situation, time and present Physical environment modification needed / anticipated for discharge: : No Medication Management: : Patient states they do have transportation to lemon picker medications Medication Management: : Patient states can afford medications Planned post hospital services available for patient? : No [facility] Planned post hospital services covered by insurance plan? : No Does Patient have transportation to get home and to follow-up medical appointments when discharged from the hospital? : Yes Would patient like to participate in any Care Coordination programs (if applicable): : Not applicable Does the patient have electricity at home? : Yes Does the patient have running water in their house? : Yes Equipment in use: : None Other Equipment comments: : PT HAS SINGLE LEG CANE IF NEEDED Mental health screen: : No mental health history Psychosocial status: : Independent adult (18-64) Abuse/Neglect: : None Resources / Services in place: : None Problems identified by the patient regarding discharge: : NONE DCP Re-evaluation QUESTION: ANSWER Would patient like to participate in any Care Coordination programs (if applicable): : Not applicable PATIENT: SEJAL CHAIREZ ENCOUNTER: [id number] MEDICAL RECORD#: [id number] ADMISSION DATE: 02/28/2021 DISCHARGE DATE: 03/07/2021 ATTENDING MD: SUSAN SEQUEIRA : AGE: 50 MARITAL STATUS: W DC PLAN ID: [id number] FACILITY: [facility] PRINTED ON: 03/07/21 14:09 CT All edits/amendments must be made on the electronic document DICTATION DATE: 03/07/211407 FOURTH MATE: FLAKITA 03/07/211407 RPT#: [id number] DC DATE:03/07/21 STATUS: DIS IN [facility] [address] [place] [address] END OF REPORT
--- NOTE | 2021-03-07 14:40 | MORECARE ---
CASE MANAGEMENT DISCHARGE SUMMARY PATIENT: SEJAL CHAIREZ UNIT: [id number] ADM DATE: 02/28/21 AGE: 50 : 66 SEX: F ROOM/BED: D.2467 AUTHOR: ANA FARAH PHYSICIAN: REFERRING PHYSICIAN: SUSAN BAILEY MD DATE OF SERVICE: 03/07/21 Case Management Discharge Planning Summary COMMENTS ENTERED DATE: 03/07/21 13:46 CT COMMENT TYPE: Discharge Planning REVIEWER: Yanet Lamb CM MET WITH PATIENT THIS AM TO DISCUSS DISCHARGE PLANNING AND OFFER AVAILABILITY OF NEEDED SERVICES. PT STATES THAT SHE LIVES AT HOME WITH HER ADULT SON WHO WAS PRESENT IN THE ROOM. IDENTIFIED SHAZIA CHAIREZ. CM VERIFIED ADDRESS AND SAFE RETURN UPON PATIENTS DISCHARGE. PATIENT DENIES NEED FOR TRANSPORTATION HOME AND STATES THAT SHE HAS FUNDS FOR MEDICATION OR NEEDED FOLLOW UP CARE. CM DISCUSSED WITH PATIENT THE NEED FOR HOME HEALTH, REHAB SERVICES, AND ADDITIONAL MEDICAL EQUIPMENT. PT STATES THAT SHE WOULD LIKE HOME OXYGEN AND POSSIBLY A WALKER. CM INFORMED PATIENT THAT HER WALK TEST PERFORMED DID NOT INDICATE A NEED FOR HOME OXYGEN, BUT SHE COULD LOOK AT THE OPTION OF SELF PAY. CM INQUIRED FROM LOCAL DME AND QUOTED THE AMOUNTS TO PATIENT. CM ALSO IMFORMED PATIENT THAT SHE COULD PURCHASE A WALKER AT LOCAL [employer] (WITH REMINDER TO CHECK THE SAFELY OF USED EQUIPMENT). PATIENT AND SON BOTH FEEL THEY CAN HANDLE HIS CARE WHEN DISCHARGED AND DO NOT NEED ADDITIONAL SERVICES AT THIS TIME. TRANSPORTATION HOME WILL BE PROVIDED BY SON. ERIS FORM SIGNED AND PLACED ON PATINENT CHART. OKP REVIEW SUMMARY ANTICIPATED D/C DATE: 03/07/2021 EXPECTED LOS : 7 CASE STATUS: DCP Initiated INITIAL REVIEW: 02/28/2021 INITIAL REVIEWER: Yanet Lamb FINAL DISCHARGE DISPOSITION: : FINAL REVIEWER: FINAL REVIEW DATE: DCP Focus Questions & Answers DCP Screen QUESTION: ANSWER High Risk Factors: : None Walking limitation: Patient stated self rated walking limitation present? : No Age: : 45 - 64 Prior living environment: : Lives with others Disability ranking: : Grade 1: No significant disability DCP Evaluation QUESTION: ANSWER Patient and/or caregiver agree upon recommended discharge plan? : Yes Family / Caregiver's ability to cope with chronic illness: : a. Adequate (ability to meet patient's medical needs, ensures patient attends medical appts.) Patient's current cognitive status: : *Oriented to person, place, situation, time and present Patient gives permission to discuss discharge plans with: (name, relationship and number) : SHAZIA CHAIREZ-SON [phone] Patient's ability to cope with chronic illness : a. Adequate (0-3 ED visits in 6 mos., adequate financial resources, attends scheduled appts.) Does the patient have the ability to pay for or attain post discharge needs / services? : Yes Functional screen assessment: : Basic needs can adequately be met by self Family / Caregiver's ability to cope with chronic illness: : a. Adequate (ability to meet patient's medical needs, ensures patient attends medical appts.) Physical Status: : Independent with ADL's Equipment needed for post hospitalization: : None Is there a likelihood that the patient will require additional services to return to the preadmission environment? : N/A Living Arrangements: : Home with others Results of this evaluation have been discussed with: : Patient Results of this evaluation have been discussed with: : Children Patient with capacity for self-care or can be cared for in same environment as prior to hospitalization? : Yes Living arrangements comments: : ADULT SON LIVES WITH PATIENT Baseline cognitive status: : *Oriented to person, place, situation, time and present Physical environment modification needed / anticipated for discharge: : No Medication Management: : Patient states they do have transportation to picker feeder medications Medication Management: : Patient states can afford medications Planned post hospital services available for patient? : No [facility]): [facility] Planned post hospital services covered by insurance plan? : N/A Does Patient have transportation to get home and to follow-up medical appointments when discharged from the hospital? : Yes Would patient like to participate in any Care Coordination programs (if applicable): : Not applicable Does the patient have electricity at home? : Yes Does the patient have running water in their house? : Yes Equipment in use: : None Other Equipment comments: : PT HAS SINGLE LEG CANE IF NEEDED Mental health screen: : No mental health history Psychosocial status: : Independent adult (18-64) Abuse/Neglect: : None Resources / Services in place: : None Problems identified by the patient regarding discharge: : NONE DCP Re-evaluation QUESTION: ANSWER Would patient like to participate in any Care Coordination programs (if applicable): : Not applicable PATIENT: SEJAL CHAIREZ ENCOUNTER: [id number] MEDICAL RECORD#: [id number] ADMISSION DATE: 02/28/2021 DISCHARGE DATE: 03/07/2021 ATTENDING MD: SUSAN SEQUEIRA : AGE: 50 MARITAL STATUS: W DC PLAN ID: [id number] FACILITY: [facility] PRINTED ON: 03/07/21 14:40 CT All edits/amendments must be made on the electronic document DICTATION DATE: 03/07/211439 GUN NUMBERER: FLAKITA 03/07/211439 RPT#: [id number] DC DATE:03/07/21 STATUS: DIS IN [facility] [address] [place] [address] END OF REPORT
--- NOTE | 2021-03-10 17:40 | MORECARE ---
CASE MANAGEMENT DISCHARGE SUMMARY PATIENT: SEJAL CHAIREZ UNIT: [id number] ADM DATE: 02/28/21 AGE: 50 : 66 SEX: F ROOM/BED: D.6204 AUTHOR: ANA FARAH PHYSICIAN: REFERRING PHYSICIAN: SUSAN BAILEY MD DATE OF SERVICE: 03/10/21 Case Management Discharge Planning Summary COMMENTS ENTERED DATE: 03/07/21 13:46 CT COMMENT TYPE: Discharge Planning REVIEWER: Yanet Lamb CM MET WITH PATIENT THIS AM TO DISCUSS DISCHARGE PLANNING AND OFFER AVAILABILITY OF NEEDED SERVICES. PT STATES THAT SHE LIVES AT HOME WITH HER ADULT SON WHO WAS PRESENT IN THE ROOM. IDENTIFIED SHAZIA CHAIREZ. CM VERIFIED ADDRESS AND SAFE RETURN UPON PATIENTS DISCHARGE. PATIENT DENIES NEED FOR TRANSPORTATION HOME AND STATES THAT SHE HAS FUNDS FOR MEDICATION OR NEEDED FOLLOW UP CARE. CM DISCUSSED WITH PATIENT THE NEED FOR HOME HEALTH, REHAB SERVICES, AND ADDITIONAL MEDICAL EQUIPMENT. PT STATES THAT SHE WOULD LIKE HOME OXYGEN AND POSSIBLY A WALKER. CM INFORMED PATIENT THAT HER WALK TEST PERFORMED DID NOT INDICATE A NEED FOR HOME OXYGEN, BUT SHE COULD LOOK AT THE OPTION OF SELF PAY. CM INQUIRED FROM LOCAL DME AND QUOTED THE AMOUNTS TO PATIENT. CM ALSO IMFORMED PATIENT THAT SHE COULD PURCHASE A WALKER AT LOCAL [employer] (WITH REMINDER TO CHECK THE SAFELY OF USED EQUIPMENT). PATIENT AND SON BOTH FEEL THEY CAN HANDLE HIS CARE WHEN DISCHARGED AND DO NOT NEED ADDITIONAL SERVICES AT THIS TIME. TRANSPORTATION HOME WILL BE PROVIDED BY SON. ERIS FORM SIGNED AND PLACED ON PATINENT CHART. NHP REVIEW SUMMARY ANTICIPATED D/C DATE: 03/07/2021 EXPECTED LOS : 7 CASE STATUS: DCP Initiated INITIAL REVIEW: 02/28/2021 INITIAL REVIEWER: Yanet Lamb FINAL DISCHARGE DISPOSITION: : FINAL REVIEWER: FINAL REVIEW DATE: DCP Focus Questions & Answers DCP Screen QUESTION: ANSWER High Risk Factors: : None Walking limitation: Patient stated self rated walking limitation present? : No Age: : 45 - 64 Prior living environment: : Lives with others Disability ranking: : Grade 1: No significant disability DCP Evaluation QUESTION: ANSWER Patient's ability to cope with chronic illness : a. Adequate (0-3 ED visits in 6 mos., adequate financial resources, attends scheduled appts.) Patient gives permission to discuss discharge plans with: (name, relationship and number) : SHAZIA CHAIREZ-SON [phone] Patient's current cognitive status: : *Oriented to person, place, situation, time and present Family / Caregiver's ability to cope with chronic illness: : a. Adequate (ability to meet patient's medical needs, ensures patient attends medical appts.) Patient and/or caregiver agree upon recommended discharge plan? : Yes Physical Status: : Independent with ADL's Family / Caregiver's ability to cope with chronic illness: : a. Adequate (ability to meet patient's medical needs, ensures patient attends medical appts.) Functional screen assessment: : Basic needs can adequately be met by self Does the patient have the ability to pay for or attain post discharge needs / services? : Yes Living Arrangements: : Home with others Is there a likelihood that the patient will require additional services to return to the preadmission environment? : N/A Equipment needed for post hospitalization: : None Baseline cognitive status: : *Oriented to person, place, situation, time and present Living arrangements comments: : ADULT SON LIVES WITH PATIENT Patient with capacity for self-care or can be cared for in same environment as prior to hospitalization? : Yes Results of this evaluation have been discussed with: : Children Results of this evaluation have been discussed with: : Patient Physical environment modification needed / anticipated for discharge: : No Medication Management: : Patient states can afford medications Medication Management: : Patient states they do have transportation to scrap picker medications [facility] Planned post hospital services available for patient? : No Does Patient have transportation to get home and to follow-up medical appointments when discharged from the hospital? : Yes Planned post hospital services covered by insurance plan? : N/A Would patient like to participate in any Care Coordination programs (if applicable): : Not applicable Does the patient have electricity at home? : Yes Does the patient have running water in their house? : Yes Equipment in use: : None Other Equipment comments: : PT HAS SINGLE LEG CANE IF NEEDED Mental health screen: : No mental health history Psychosocial status: : Independent adult (18-64) Abuse/Neglect: : None Resources / Services in place: : None Problems identified by the patient regarding discharge: : NONE DCP Re-evaluation QUESTION: ANSWER Would patient like to participate in any Care Coordination programs (if applicable): : Not applicable PATIENT: SEJAL CHAIREZ ENCOUNTER: [id number] MEDICAL RECORD#: [id number] ADMISSION DATE: 02/28/2021 DISCHARGE DATE: 03/07/2021 ATTENDING MD: SUSAN SEQUEIRA : AGE: 50 MARITAL STATUS: W DC PLAN ID: [id number] FACILITY: [facility] PRINTED ON: 03/10/21 17:40 CT All edits/amendments must be made on the electronic document DICTATION DATE: 03/10/211739 FAMILY MEDICINE PHYSICIAN: FLAKITA 03/10/211739 RPT#: [id number] DC DATE:03/07/21 STATUS: DIS IN [facility] [address] [place] [address] END OF REPORT
== END 2021-03-07 10:48 | disposition home or self-care (01) | DRG 193 ==
LOC: D.ER 17:49 → D.M2 21:46
PROVIDERS: Emergency Medicine; Internal Medicine Interventional Cardiology; ADMIT Emergency Medicine; ATTEND Emergency Medicine
DX: J18.9 Pneumonia, unspecified organism (principal); I21.A1 Myocardial infarction type 2; J96.21 Acute and chronic respiratory failure with hypoxia; J44.1 Chronic obstructive pulmonary disease with (acute) exacerbation; J44.0 Chronic obstructive pulmonary disease with (acute) lower respiratory infection; I50.32 Chronic diastolic (congestive) heart failure; E11.9 Type 2 diabetes mellitus without complications; I11.0 Hypertensive heart disease with heart failure; E78.5 Hyperlipidemia, unspecified; M06.9 Rheumatoid arthritis, unspecified; F17.200 Nicotine dependence, unspecified, uncomplicated; Z20.822 Contact with and (suspected) exposure to COVID-19; I25.10 Atherosclerotic heart disease of native coronary artery without angina pectoris; F41.9 Anxiety disorder, unspecified; R04.0 Epistaxis

== ENCOUNTER 2021-03-08 16:05 | Emergency (ER) | payer OTHER ==
[~2021-03-08] VITALS: Ht 172.7 cm; Wt 102.3 kg
[~2021-03-08 16:05] MED LIST changes: +DULERA 200 MCG8.8 GM INH; +FLORAJEN DIGES1 EACH PO; +LANTUS SOL100 UNIT/2 SC; +NICODERM CQ1 EAC3 TRANSDERM; +NYSTATIN OINTME15 GM TOPICAL; +PROTONIX40 MG PO; +VENTOLIN HFA [SP8 GM INH
[2021-03-08 16:10] VITALS: Ht 172.7 cm; Wt 102.3 kg
[2021-03-08 16:52] LABS: APTT 23.8 SECONDS (22.8-39.4); CALC OSMOLALITY 282 mosm/kg (275-300); CALCIUM 9.2 mg/dL (8.5-10.1); CHLORIDE - SERUM 102 mmol/L (98-107); INR 1.05 (0.85-1.17); POTASSIUM - SERUM 3.6 mmol/L (3.5-5.1); PROTIME 12.7 SECONDS (11.6-15.0); SODIUM 138 mmol/L (136-145); UREA NITROGEN 37 mg/dL (7-18); eGFR NON AFRICAN AMERICAN 62 mL/min (90-120)
[2021-03-08 16:55] LABS: GLUCOSE 70 mg/dL (74-106); HEMATOCRIT 49.6 % (36.0-48.0); HEMOGLOBIN 17.2 g/dL (12-16); LYMPHOCYTE ABS# 7.16 10x3/uL (1.18-3.74); MCH 32.6 pg (26.0-34.0); MCHC 34.7 g/dL (31.0-37.0); MCV 93.9 fL (80.0-100.0); MEAN PLATELET VOLUME 10.8 fL (7.4-10.4); NEUTROPHIL ABS# 12.85 10x3/uL (1.56-6.13); PLATELET COUNT 270 10x3/uL (130-400); RBC 5.28 10x6/uL (4.00-5.40); RDW 13.3 % (11.5-14.5); WBC 22.2 10x3/uL (4.8-10.8)
[2021-03-08 17:08] LABS: ALKALINE PHOSPHATASE 106 U/L (30-120); ALT (SGPT) 62 U/L (10-68); CKMB 2.4 U/L (0.0-3.6); CREATINE KINASE 44 UL (21-215); MAGNESIUM - SERUM 2.2 mg/dL (1.8-2.4); PROTEIN - SERUM 7.5 g/dL (6.4-8.2); TROPONIN-I 0.028 ng/mL (0.000-0.060)
[2021-03-08 17:44] LABS: EOSINOPHILS 1 % (0-7); LYMPHOCYTES 49 % (15-50); MONOCYTES 3 % (2-11); NEUTROPHILS 48 % (40-80); PLATELET ESTIMATE NORMAL
[2021-03-08 18:03] VITALS: BP 135/69
== END 2021-03-08 18:21 | disposition home or self-care (01) ==
LOC: D.ER 16:05
PROVIDERS: Family Medicine
DX: R55 Syncope and collapse (principal); E11.649 Type 2 diabetes mellitus with hypoglycemia without coma; I11.0 Hypertensive heart disease with heart failure; I50.9 Heart failure, unspecified; E78.5 Hyperlipidemia, unspecified; J44.9 Chronic obstructive pulmonary disease, unspecified; Z72.0 Tobacco use; Z79.4 Long term (current) use of insulin; W19.XXXA Unspecified fall, initial encounter; Y93.9 Activity, unspecified; Y92.9 Unspecified place or not applicable; R51.9 Headache, unspecified

== ENCOUNTER 2021-03-18 19:44 | Inpatient (IN) | payer OTHER ==
[~2021-03-18] VITALS: Ht 172.7 cm; Wt 106.1 kg
--- NOTE | ~2021-03-18 | HEMODYNAMI ---
PATIENT:SEJAL CHAIREZ MEDICAL RECORD: [id number] : 66 LOCATION:[facility] D.2118 [facility]# [id number] ADMISSION DATE: 03/19/21 Generatedon:110:45 Patient name: SEJAL CHAIREZ Patient #: [id number] : 1970 Date of study: 03/19/2021 Page: Of Hemodynamic Procedure Report Patient Data Patient Demographics Procedure consent was obtained First Name: SEJAL Gender: Female Last Name: MIHAELA : 1970 Middle Initial: K Age: 50 year(s) Patient #: [id number] Race: SSN: [id number] Additional ID: [id number] Contact details Address: [address] [place] [address] State: [place] City: [place] Zip code: [address] Admission Admission Data Admission Date: 03/19/2021 Admission Time: 1:37 Arrival Date: 03/19/2021 Arrival Time: 1:37 Admit Source: Emergency Insurance Payor: Private department health insurance Room #: D.2118 [facility] #: [id number] Height (in.): 67.72 BSA: 2.18 (m2) Height (cm.): 172 BMI: 35.83 (kg/m2) Weight (lbs.): 233.69 Weight (kg.): 106 Lab Results Lab Result Date: 03/19/2021 Lab Result Time: 0:00 Biochemistry Name Units Result Min Max BUN mg/dl 17 --(---*)-- 7 18 Creatinine mg/dl 0.7 --(*---)-- 0.6 1.3 eGFR ml/min 90 --(*---)-- 90 120 NONAFRICAN CBC Name Units Result Min Max Hemoglobin g/dl 12.5 *-(----)-- 13.5 17.5 Procedure Procedure Types Cath Procedure Diagnostic Procedure LHC LHC w/Coronaries Sedation Charges Moderate Sedation 10-24 minutes Procedure Description Procedure Date Procedure Date: 03/19/2021 Procedure Start Time: 10:25 Procedure End Time: 10:42 Procedure Staff Name Function Justin Pereira MD Performing Physician Desi Woodward RT Monitor Julieth Bowman RT Scrub Santy Santana RN Nurse Procedure Data Cath Procedure Fluoroscopy Diagnostic fluoroscopy Total fluoroscopy Time: 3.6 time: 3.6 min min Diagnostic fluoroscopy Total fluoroscopy dose: 696 dose: 696 mGy mGy Contrast Material Contrast Material Type Amount (ml) Isovue 370 71 Entry Location Entry Primary Successful Side Size Upsize Upsize Entry Closure Grover ccessful Closure Location (Fr) 1 (Fr) 2 (Fr) Remarks Device Remarks Radial Right 6 Fr Mechanical artery Short Compression Estimated blood loss: 5 ml Diagnostic catheters Device Type Used For End Catheter Placement DIAGNOSTIC [place] 110cm 5 Procedure Fr catheter (200183) DIAGNOSTIC Pigtail 5Fr Procedure catheter ([id number]) Procedure Complications No complications Procedure Medications Medication Administration Route Dosage Oxygen etCO2 Nasal cannula 2 l/min Lidocaine 2% added to field 20 Heparin Flush Bag added to field 2 bags (1000units/500ml NS) 0.9% NaCl I.V. 100 ml/hr Radial Cocktail added to field 1 syringe (Verapamil 2mg/Nitro 400mcg/Heparin 1500units) Versed I.V. 1 mg Fentanyl I.V. 50 mcg Versed I.V. 0.5 mg Fentanyl I.V. 25 mcg Hemodynamics Rest BSA: 2.18 (m2) HGB: 12.5 (g/dl) O2 Consumption: Estimated: 225.36 (ml/min) O2 Co nsumption indexed: Estimated:103.38 (ml/min/m) Heart Rate: 86 (bpm) Pressure Samples Time Site Value (mmHg) Purpose Heart Use Rate(bpm) 10:30 LV 147/-2,84 Snapshot 80 10:38 LV 112/-2,10 Snapshot 94 Gradients Valve Time Site Site Mean SEP/DFP Peak To Heart Use 1 2 (mmHg) (sec/min) Peak Rate (mmHg) (bpm) Aortic 10:31 LV AO 95 Aortic 10:39 LV AO 93 Snapshots Pre Cath Intra NCS Post Cath Vital Signs Time Heart Resp SPO2 etCO2 NIBP (mmHg) Rhythm Pain Sedation Rate (ipm) (%) (mmHg) Status Level (bpm) 10:11:10 86 13 96 41.4 148/72(108) NSR 0 (11) 10(A) , No pain 10:15:30 87 11 92 42.1 129/69(102) NSR 0 (11) 10(A) , No pain 10:19:54 87 11 93 42.1 124/64(87) NSR 0 (11) 9(A) , No pain 10:24:16 87 11 94 41.4 118/60(84) NSR 0 (11) 9(A) , No pain 10:28:37 88 11 94 41.4 112/60(79) NSR 0 (11) 9(A) , No pain 10:32:56 91 11 93 42.1 106/56(84) NSR 0 (11) 9(A) , No pain 10:37:11 83 11 95 42.1 123/63(90) NSR 0 (11) 9(A) , No pain 10:41:29 93 11 94 42.9 124/69(101) NSR 0 (11) 10(A) , No pain Medications Time Medication Route Dose Verified Delivered Reason Notes E ffectiveness by by 10:06:29 Oxygen etCO2 2 l/min Justin Santy used for Nasal Randall Santana sewage plant supervisor cannula 10:06:42 Lidocaine 2% added 20ml Justin Justin for local to vial Randall Pereira MD anesthetic field 10:06:49 Heparin Flush added 2 bags Justin Justin used for Bag to Randall Pereira MD procedure (1000units/500ml field NS) 10:06:56 0.9% NaCl I.V. 100 Justin Justin Per ml/hr Randall Pereira MD physician 10:07:34 Radial Cocktail added 1 Justin Justin used for (Verapamil to syringe Randall Pereira MD procedure 2mg/Nitro field 400mcg/Heparin 1500units) 10:16:33 Versed I.V. 1 mg Justin Santy for Randall Santana RN sedation 10:16:40 Fentanyl I.V. 50 mcg Justin Santy for Randall Santana RN sedation 10:22:40 Versed I.V. 0.5 mg Justin Santy for Randall Santana RN sedation 10:22:43 Fentanyl I.V. 25 mcg Justin Santy for Randall Santana RN sedation Procedure Log Time Note 9:52:32 Informed consent obtained and on chart 9:52:40 Arrival Date: 03/19/2021 1:37:00 AM 9:52:58 Insurance Payor : Private health insurance 9:53:01 Patient Height : 67.72 inches 9:53:04 Patient Weight : 233.69 lbs 9:53:07 Admit Source: Emergency department 9:53:38 Lab Result : eGFR NONAFRICAN 90 ml/min 9:53:38 Lab Result : Hemoglobin 12.5 g/dl 9:53:38 Lab Result : BUN 17 mg/dl 9:53:38 Lab Result : Creatinine 0.7 mg/dl 9:53:46 Diagnostic Cath Status : Urgent 9:54:09 Procedure Status Urgent Heart Cath (IP). 9:54:13 Santy Santana RN sent for patient. Start room use. 9:54:13 Time tracking: Regular hours (M-F 7:00 - 5:00) 9:54:18 Plan of Care:Hemodynamics will remain stable., Cardiac rhythm will remain stable., Comfort level will be maintained., Respiratory function will remain adequate., Patient/ family verbilizes understanding of procedure., Procedure tolerated without complication., Recovers from procedure without complications.. 9:57:57 ACC Patient presents with Unstable Angina CCS Anginal Class 2--Slight limitation of ordinary activity. 10:00:12 H&P Date Dictated: 03/19/2021 Within 30 days and on chart.. 10:00:14 Pre-procedure instructions explained to patient. 10:00:15 Pre-op teaching completed and patient verbalized understanding. 10:00:20 Patient received from Med II to CCL 1 Alert and oriented. Tansferred to table in Supine position. 10:00:21 Warm blankets applied, and jose hugger turned on for patient comfort. 10:00:21 Correct patient and procedure confirmed by team. 10:00:22 ECG and BP/O2 sat monitors applied to patient. 10:00:32 Family in patients room. 10:00:34 Patient NPO since Midnight. 10:00:36 Is the patient allergic to Iodine/contrast media? No. 10:00:38 Was the patient premedicated? Yes 10:00:42 Patient diabetic? No. 10:00:45 Patient not . Patient is over age 55. 10:00:45 ----Pre-sedation anethsthesia assessment.---- 10:00:48 Previous problem with sedation/anesthesia? No ? 10:00:50 Snore? Yes 10:00:52 Sleep apnea? No 10:00:54 Deviated septum? No 10:00:55 Opens mouth fully? Yes 10:00:56 Sticks out tongue? Yes 10:01:00 Airway obstruction? Yes ASTHMA, COPD 10:01:03 Dentures? No ? 10:01:14 IV patent on arrival in left antecubital with 0.9% NaCl at [facility]. 10:01:17 Lab results completed and on chart. 10:01:20 Stress Test: no; N/A ? 10:01:24 Alarms reviewed by RDenise N. 10:01:25 Sharps counted by scrub and verified by RDeniseN. 10:01:31 Full Disclosure recording started 10:02:36 Right Radial & Right Groin area was prepped with chlora-prep and draped in sterile fashion 10:02:45 Patient pain scale 5/10 ?. 10:02:46 Patient pain scale 0/10 ?. 10:02:50 Modified Blaine's test Ulnar < 7 seconds 10:02:52 Pre procedure: right dorsailis pedis pulse 1+ Palpable, but thready & weak; easily obliterated 10:06:29 Oxygen 2 l/min etCO2 Nasal cannula was administered by Santy Santana RN; used for procedure; Verbal order read back and verified. 10:06:42 Lidocaine 2% 20ml vial added to field was administered by Justin Pereira MD; for local anesthetic; Verbal order read back and verified. 10:06:49 Heparin Flush Bag (1000units/500ml NS) 2 bags added to field was administered by Justin Pereira MD; used for procedure; Verbal order read back and verified. 10:06:56 0.9% NaCl 100 ml/hr I.V. was administered by Justin Pereira MD; Per physician; Verbal order read back and verified. 10:07:34 Radial Cocktail (Verapamil 2mg/Nitro 400mcg/Heparin 1500units) 1 syringe added to field was administered by Justin Pereira MD; used for procedure; Verbal order read back and verified. 10:09:51 Baseline sample Acquired. 10:09:51 Vital chart was started 10:09:58 Rhythm: sinus rhythm 10:10:22 SKIN TEARS AT RT GROIN SEEN DURING PREP FOR PROCEDURE. 10:10:48 Use device set Radial Dx or PCI 10:10:49 ACIST Syringe (05598) opened to sterile field. 10:10:50 Medline Cath Pack ([id number]) opened to sterile field. 10:10:50 Bag Decanter (2002S) opened to sterile field. 10:10:51 ACIST Hand Control (83021) opened to sterile field. 10:10:52 ACIST Manifold (22923) opened to sterile field. 10:10:53 MBrace Wrist Support ([id number]) opened to sterile field. 10:10:54 NEEDLE Cook 21G 4cm Radial (N01494) opened to sterile field. 10:10:55 EMERALD Guide Wire (502-842) opened to sterile field. 10:10:56 SHEATH 6FR RAIN (3956194) opened to sterile field. 10:15:40 --------ALL STOP TIME OUT------ 10:15:44 Final Timeout: patient, procedure, and site verified with staff and physician. All members of the team are in agreement. 10:15:46 Right Radial & Right Groin site verified by team. 10:15:48 Fire Safety Assessment: A--An alcohol-based skin anteseptic being used preoperatively., C--Open oxygen or nitrous oxide is being used., D--An ESU, laser, or fiber-optic light is being used. 10:15:51 Physical assessment completed. ASA score P 2 - A patient with mild systemic disease as per Justin Pereira MD. 10:15:53 1) 90+ Normal kidney functon but urine findings or structural abnormalities or genetic trait point to kidney disease. 10:15:56 Maximum allowable contrast dose (3.7 X eGFR X 0.75)250 ml. 10:15:58 Sedation plan: IV Moderate Sedation Medication:Versed, Fentanyl 10:16:33 Versed 1 mg I.V. was administered by Santy Santana RN; for sedation; Verbal order read back and verified. 10:16:40 Fentanyl 50 mcg I.V. was administered by Santy Santana RN; for sedation; Verbal order read back and verified. 10:22:40 Versed 0.5 mg I.V. was administered by Santy Santana RN; for sedation; Verbal order read back and verified. 10::43 Fentanyl 25 mcg I.V. was administered by Santy Santana RN; for sedation; Verbal order read back and verified. 10:24:59 Procedure started. 10:25:39 Local anesthetic to right radial artery with Lidocaine 2% by Justin Pereira MD.INITIAL ACCESS ONLY 10:28:44 A 6 Fr Short sheath was inserted into the Right Radial artery 10:28:54 A DIAGNOSTIC [place] 110cm 5 Fr catheter (171968) was advanced over the wire and used for Procedure. 10:29:35 LV gram done using CHILDERS 10:30:35 LV hemodynamics recorded. 10:30:38 Injector settings: Ml/sec: 5, Volume: 15, 10:30:49 EF : 50 % 10:31:53 RCA angiography performed. 10:31:56 Injector settings: Ml/sec: 3, Volume: 6, 10:32:44 LCA angiography performed. 10:32:47 Injector settings: Ml/sec: 3, Volume: 6, 10:33:26 ACCDominant side:Left 10:35:56 Catheter exchanged over wire. 10:36:02 A DIAGNOSTIC Pigtail 5Fr catheter (071634H) was advanced over the wire and used for Procedure. 10:38:16 LV gram done using CHILDERS 10:38:18 Injector settings: Ml/sec: 5, Volume: 15, 10:39:17 Catheter removed. 10:39:57 ZEPHYR REGULAR TR BAND (030364) opened to sterile field. 10:40:10 Sheath removed intact; hemostasis achieved with Mechanical Compression to the Right Radial artery. 10:40:12 Procedure ended.(Physican Out) 10:40:27 Fluoroscopy time 03.60 minutes. 10:40:30 Flurop Dose total: 696 10:40:30 Fluoroscopy dose: 696 mGy 10:40:35 Dose Area Product 74355 mGy/cm. 10:40:45 Contrast amount:Isovue 370 71ml. 10:40:48 Maximum allowable dose exceeded? No. 10:40:49 Sharps counted by scrub and verified by R.N. 10:40:52 [place] band inflated with 11cc of air. 10:40:56 Post Procedure Pulses reassessed and unchanged 10:40:58 Post procedure: right dorsailis pedis pulse 1+ Palpable, but thready & weak; easily obliterated. 10:41:01 Post-procedure physical assessment completed. ASA score P 2 - A patient with mild systemic disease as per Justin Pereira MD. 10:41:04 Post procedure rhythm: unchanged. 10:41:06 Estimated blood loss: 5 ml 10:41:07 Post procedure instruction explained to patient.Patient verbalizes understanding. 10:41:08 Patient needs reinforcement of post procedure teaching. 10:41:32 Procedure type changed to Cath procedure, Diagnostic procedure, LHC, LHC w/Coronaries, Sedation Charges, Moderate Sedation 10-24 minutes 10:41:48 Procedure and supply charges have been captured, reviewed, submitted and are correct. 10:41:51 Procedure Complication : No complications 10:41:55 LHC Findings: mild to moderate CAD (<70%) 10:41:58 Operative report dictated upon procedure completion. 10:41:59 See physician's report for complete and final results. 10:42:04 Report given to Med II. 10:42:06 Patient transfered to Med II with Bed. 10:42:08 Procedure ended. 10:42:08 Full Disclosure recording stopped 10:42:26 End room use (Document Last) 10:45:06 Vital chart was stopped Device Usage Item Name Manufacture Quantity Catalog Hospital Part Current Minima l Lot# / Number Charge Number Stock Stock Serial# Code ACIST Acist 1 83131 975250 [id number] [id number] 20 Syringe Medical (63420) Systems Inc Medline Medline 1 [id number] 454089 76638 588046 5 Cath Pack ([id number]) Bag Microtek 1 2001S 301258 13775 213997 5 Decanter Medical Inc. () ACIST Hand Acist 1 91328 173996 986720 730166 5 Control Medical (79542) Systems Inc ACIST Acist 1 66123 765779 903859 009269 5 Manifold Medical (76990) Systems Inc MBrace Advanced 1 140-0250-00 166754 98992 685445 5 Wrist Vascular Support Dynamics ([id number]) NEEDLE FOLUP Medical 1 X07345 378210 460903 544188 5 21G 4cm Radial (M01452) EMERALD Cardinal 1 502-455 094097 150342 668093 5 Guide Wire Health (502-455) SHEATH 6FR Cardinal 1 4878095 714148 3404810 817348 5 [facility] (5908288) DIAGNOSTIC Terumo 1 40-5013 081681 063549 975857 5 [place] 110cm 5 Fr catheter (443881) DIAGNOSTIC Cardinal 1 [id number] 114187 411751 306343 5 Pigtail 5Fr Health catheter (546790G) ZEPHYR Cardinal 1 094716 516290 2324612 715582 5 REGULAR TR Health BAND (443568) Signature Audit [place] Stage Time Signature Unsigned Intra-Procedure 03/19/2021 Desi Woodward 10:43:03 AM RT(R) Intra-Procedure 03/19/2021 Santy Santana RN 10:44:43 AM Intra-Procedure 03/19/2021 Justin Pereira MD 10:45:05 AM [facility] [address] [place] [address]
[2021-03-18 21:33] LABS: BASOPHILS 1.3 % (0-2); EOSINOPHILS 0.1 % (0-7); HEMATOCRIT 43.4 % (36.0-48.0); HEMOGLOBIN 14.5 g/dL (12-16); LYMPHOCYTES 23.8 % (15-50); MCH 31.9 pg (26.0-34.0); MCHC 33.5 g/dL (31.0-37.0); MCV 95.3 fL (80.0-100.0); MEAN PLATELET VOLUME 8.7 fL (7.4-10.4); MONOCYTES 3.8 % (2-11); RBC 4.55 10x6/uL (4.00-5.40); RDW 14.7 % (11.5-14.5); WBC 8.2 10x3/uL (4.8-10.8)
[2021-03-18 21:58] LABS: CALC OSMOLALITY 298 mosm/kg (275-300); CALCIUM 8.6 mg/dL (8.5-10.1); CARBON DIOXIDE 28.2 mmol/L (21.0-32.0); CHLORIDE - SERUM 102 mmol/L (98-107); CREATININE - SERUM 1.1 mg/dL (0.6-1.3); POTASSIUM - SERUM 4.7 mmol/L (3.5-5.1); SODIUM 139 mmol/L (136-145); UREA NITROGEN 23 mg/dL (7-18); eGFR NON AFRICAN AMERICAN 55 mL/min (90-120)
[2021-03-18 22:03] LABS: GLUCOSE 399 mg/dL (74-106)
[2021-03-18 22:07] LABS: PLATELET COUNT 186 10x3/uL (130-400)
[2021-03-18 22:12] LABS: ALBUMIN 3.2 g/dL (3.4-5.0); ALKALINE PHOSPHATASE 118 U/L (30-120); ALT (SGPT) 55 U/L (10-68); BILIRUBIN - TOTAL 0.23 mg/dL (0.2-1.3); CREATINE KINASE 53 UL (21-215); PRO BNP 397 pg/mL (0-125); PROTEIN - SERUM 6.9 g/dL (6.4-8.2)
[2021-03-18 22:32] LABS: BILIRUBIN NEGATIVE (NEGATIVE); KETONE NEGATIVE (NEGATIVE); NITRITE NEGATIVE (NEGATIVE); UROBILINOGEN NORMAL mg/dL (< 2)
[2021-03-18 22:44] LABS: CKMB 3.2 U/L (0.0-3.6); TROPONIN-I 0.774 ng/mL (0.000-0.060)
[2021-03-19] VITALS (15 sets, daily range): BP systolic 102–170; BP diastolic 42–79; Ht 172.7 cm; Wt 106.1 kg
[2021-03-19] MEDS ORDERED: BUMEX2 MG PO (03:59)
[2021-03-19] MEDS ORDERED: LANTUS SOL100 UNIT/2 SC (04:03)
--- NOTE | 2021-03-19 04:54 | NUR ---
REIEVED REPORT FROM IVETTE RODRIGUEZ IN ER. ARRIVED TO FLOOR ON STRETCHER. TRANSFERED SELF TO BED. A/O X4. UP AD BETY. DENIES ANY NEEDS AT THIS TIME.ASSESSMENT COMPLETED.
[2021-03-19 06:41] LABS: BASOPHILS 1.1 % (0-2); EOSINOPHILS 0.9 % (0-7); HEMATOCRIT 37.4 % (36.0-48.0); HEMOGLOBIN 12.5 g/dL (12-16); LYMPHOCYTES 45.2 % (15-50); MCH 31.6 pg (26.0-34.0); MCHC 33.3 g/dL (31.0-37.0); MCV 94.8 fL (80.0-100.0); MEAN PLATELET VOLUME 8.6 fL (7.4-10.4); MONOCYTES 5.7 % (2-11); NEUTROPHILS 47.1 % (40-80); PLATELET COUNT 158 10x3/uL (130-400); RBC 3.95 10x6/uL (4.00-5.40); RDW 14.7 % (11.5-14.5); WBC 8.3 10x3/uL (4.8-10.8)
[2021-03-19 07:22] LABS: ALBUMIN 2.6 g/dL (3.4-5.0); ALKALINE PHOSPHATASE 76 U/L (30-120); ALT (SGPT) 43 U/L (10-68); BILIRUBIN - TOTAL 0.25 mg/dL (0.2-1.3); CALCIUM 8.2 mg/dL (8.5-10.1); CARBON DIOXIDE 30.6 mmol/L (21.0-32.0); CHLORIDE - SERUM 106 mmol/L (98-107); CKMB 1.7 U/L (0.0-3.6); CREATINE KINASE 36 UL (21-215); MAGNESIUM - SERUM 2.3 mg/dL (1.8-2.4); PHOSPHOROUS 2.8 mg/dL (2.5-4.9); PROTEIN - SERUM 5.6 g/dL (6.4-8.2); SODIUM 139 mmol/L (136-145)
[2021-03-19 07:24] LABS: CALC OSMOLALITY 284 mosm/kg (275-300); CREATININE - SERUM 0.7 mg/dL (0.6-1.3); GLUCOSE 194 mg/dL (74-106); TROPONIN-I 0.604 ng/mL (0.000-0.060); UREA NITROGEN 17 mg/dL (7-18); eGFR NON AFRICAN AMERICAN > 90 mL/min (90-120)
--- NOTE | 2021-03-19 08:01 | NUR ---
PT RECEIVED AWAKE AND ALERT IN BED. ASKING FOR SLEEPER CHAIR FOR FAMILY. BROUGHT ONE TO ROOM. SCD'S APPLIED AND INCENTIVE SPIROMETRY TO ROOM AND INSTRUCTED. 2+ EDEMA TO BLE.
[2021-03-19 08:55] LABS: LDL-HDL RATIO 0.8 ratio (1.5-3.5)
--- NOTE | 2021-03-19 09:57 | NUR ---
PT TO CAN FILLER ON BED.
--- NOTE | 2021-03-19 10:57 | NUR ---
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 PRETTY SLEEPY BUT AROUSE TO VOICE. ZEPHYR TO RIGHT WRIST. VITALS TAKEN AND IVF INFUSING.
[2021-03-19 13:24] LABS: CKMB 1.5 U/L (0.0-3.6); CREATINE KINASE 31 UL (21-215)
--- NOTE | 2021-03-19 14:17 | NUR ---
PT SLEEPING AT PRESENT, FAMILY AT BEDSIDE SLEEPING TOO.
[2021-03-19 19:40] LABS: CKMB 1.1 U/L (0.0-3.6); CREATINE KINASE 34 UL (21-215)
[2021-03-19 19:41] LABS: TROPONIN-I 0.397 ng/mL (0.000-0.060)
[2021-03-20 00:14] VITALS: BP 108/46
[2021-03-20 04:20] VITALS: BP 137/69
--- NOTE | 2021-03-20 05:49 | NUR ---
CALLED TO ROOM. STATED HER IV FELL OUT. EXPLAINED THAT I HAD GIVEN HER PAIN MEDICATION THRU HER IV AND IT WAS FINE. ALSO, EXPLAINED IV DONT JUST FALL OUT. NO COMMENT FROM HER.
--- NOTE | 2021-03-20 05:51 | NUR ---
MERYL SAVAGE WITH N.O. FOR HYDROCODONE 5/325MG Q6HR PRN FOR PAIN.
[2021-03-20 06:17] LABS: HEMATOCRIT 39.9 % (36.0-48.0); HEMOGLOBIN 13.3 g/dL (12-16); MCH 31.9 pg (26.0-34.0); MCHC 33.5 g/dL (31.0-37.0); MCV 95.3 fL (80.0-100.0); MEAN PLATELET VOLUME 8.5 fL (7.4-10.4); PLATELET COUNT 156 10x3/uL (130-400); RBC 4.18 10x6/uL (4.00-5.40); RDW 14.4 % (11.5-14.5)
[2021-03-20 06:38] LABS: ALBUMIN 2.8 g/dL (3.4-5.0); ALKALINE PHOSPHATASE 70 U/L (30-120); ALT (SGPT) 46 U/L (10-68); BILIRUBIN - TOTAL 0.27 mg/dL (0.2-1.3); CALCIUM 8.4 mg/dL (8.5-10.1); CARBON DIOXIDE 33.7 mmol/L (21.0-32.0); CHLORIDE - SERUM 105 mmol/L (98-107); CREATININE - SERUM 0.7 mg/dL (0.6-1.3); MAGNESIUM - SERUM 2.3 mg/dL (1.8-2.4); PHOSPHOROUS 3.5 mg/dL (2.5-4.9); POTASSIUM - SERUM 3.7 mmol/L (3.5-5.1); PROTEIN - SERUM 5.9 g/dL (6.4-8.2); SODIUM 143 mmol/L (136-145); UREA NITROGEN 16 mg/dL (7-18); eGFR NON AFRICAN AMERICAN > 90 mL/min (90-120)
[2021-03-20 06:39] LABS: WBC 5.7 10x3/uL (4.8-10.8)
[2021-03-20 06:40] LABS: CALC OSMOLALITY 287 mosm/kg (275-300); GLUCOSE 132 mg/dL (74-106)
[2021-03-20 09:00] VITALS: BP 120/57
[2021-03-20] MEDS ORDERED: RANEXA500 MG PO (11:29)
[2021-03-20] MEDS ORDERED: NICODERM CQ1 EAC3 TRANSDERM (11:29)
[2021-03-20] MEDS ORDERED: FEXOFENADINE HC60 MG PO (11:29)
[2021-03-20] MEDS ORDERED: TESSALON PERLE100 MG PO (11:30)
[2021-03-20] MEDS ORDERED: MUCINEX600 MG PO (11:30)
[2021-03-20] MEDS ORDERED: ULTRAM50 MG PO (11:32)
[2021-03-20 11:39] LABS: EOSINOPHILS 3 % (0-7); LYMPHOCYTES 37 % (15-50); MONOCYTES 8 % (2-11); NEUTROPHILS 50 % (40-80); PLATELET ESTIMATE NORMAL; ROULEAUX OCC
--- NOTE | 2021-03-20 13:05 | NUR ---
NURSE REVIEWS DC INSTRUCTIONS WITH PATIENT AT THIS TIME. REVIEWS INSTRUCTIONS FOLLOWING A HEART CATH, AND HER DISCHARGE NEW MEDICATIONS THAT WERE SENT IN TO THE PHARMACY. PATIENT HAS FAMILY AT BEDSIDE. WILL CALL WHEN SHE IS READY TO BE WHEELED DOWNSTAIRS
--- NOTE | 2021-03-20 13:40 | MORECARE ---
CASE MANAGEMENT DISCHARGE SUMMARY PATIENT: SEJAL CHAIREZ UNIT: [id number] ADM DATE: 03/19/21 AGE: 50 : 66 SEX: F ROOM/BED: [facility] AUTHOR: SOFI,DOC PHYSICIAN: REFERRING PHYSICIAN: SUSAN BAILEY MD DATE OF SERVICE: 03/20/21 Case Management Discharge Planning Summary DCP REVIEW SUMMARY ANTICIPATED D/C DATE: 03/20/2021 EXPECTED LOS : 1 CASE STATUS: DCP Initiated INITIAL REVIEW: 03/19/2021 INITIAL REVIEWER: Yanet Lamb FINAL DISCHARGE DISPOSITION: 01 : Home or Self Care (Routine Discharge) FINAL REVIEWER: FINAL REVIEW DATE: DCP Focus Questions & Answers QUESTION: ANSWER : PATIENT: SEJAL CHAIREZ ENCOUNTER: [id number] MEDICAL RECORD#: [id number] ADMISSION DATE: 03/19/2021 DISCHARGE DATE: ATTENDING MD: SUSAN SEQUEIRA : AGE: 50 MARITAL STATUS: W DC PLAN ID: [id number] FACILITY: [facility] PRINTED ON: 03/20/21 13:40 CT All edits/amendments must be made on the electronic document DICTATION DATE: 03/20/211339 DIRECTOR OF ONLINE EDUCATION: FLAKITA 03/20/21 134 RPT#: [id number] DC DATE: STATUS: ADM IN [facility] [address] [place] [address] END OF REPORT
--- NOTE | 2021-03-20 13:52 | MORECARE ---
CASE MANAGEMENT DISCHARGE SUMMARY PATIENT: SEJAL GAONA UNIT: [id number] ADM DATE: 03/19/21 AGE: 50 : 66 SEX: F ROOM/BED: D.5894 AUTHOR: SOFI,DOC PHYSICIAN: REFERRING PHYSICIAN: SUSAN BAILEY MD DATE OF SERVICE: 03/20/21 Case Management Discharge Planning Summary COMMENTS ENTERED DATE: 03/20/21 13:38 CT COMMENT TYPE: Discharge Planning REVIEWER: Yanet Lamb CM met with patient to complete discharge planning assessment and offer availability of needed services. Patient states that she lives independently at home with her son prior to admission. Son (Erick Gaona present in room at time of DCP and verified that home environment is safe and has electricity and running water. Patient denies need for transportation and state that she has funds for services and medications if needed. PCP is Dr. Matthews and patient uses [facility]. CM offered and discussed home health, rehab services, and need for any medical equipment. Patient did not express need for offered services at this time. Patient does have an nebulizer currently. Equipment obtained from mail delivery. Transportation home will be provided b her son in law (Drake Barrera). Patient verbalized understanding of DCP and agrees with discharge. DCP REVIEW SUMMARY ANTICIPATED D/C DATE: 03/20/2021 EXPECTED LOS : 1 CASE STATUS: DCP Initiated INITIAL REVIEW: 03/19/2021 INITIAL REVIEWER: Yanet Lamb FINAL DISCHARGE DISPOSITION: 01 : Home or Self Care (Routine Discharge) FINAL REVIEWER: FINAL REVIEW DATE: DCP Focus Questions & Answers QUESTION: ANSWER : PATIENT: SEJAL GAONA ENCOUNTER: [id number] MEDICAL RECORD#: [id number] ADMISSION DATE: 03/19/2021 DISCHARGE DATE: ATTENDING MD: SUSAN SEQUEIRA : AGE: 50 MARITAL STATUS: W DC PLAN ID: [id number] FACILITY: [facility] PRINTED ON: 03/20/21 13:52 CT All edits/amendments must be made on the electronic document DICTATION DATE: 03/20/211351 SURGICAL INSTRUMENT MECHANIC: FLAKITA 03/20/21 1352 RPT#: [id number] DC DATE: STATUS: ADM IN [facility] [address] [place] [address] END OF REPORT
--- NOTE | 2021-03-20 14:09 | NUR ---
PATIENT WHEELED OUT AT THIS TIME. PATIENT HAS BELONGINGS IN HAND. SON AT WHEELCHAIR SIDE.
--- NOTE | 2021-03-20 14:17 | MORECARE ---
CASE MANAGEMENT DISCHARGE SUMMARY PATIENT: SEJAL GAONA UNIT: [id number] ADM DATE: 03/19/21 AGE: 50 : 66 SEX: F ROOM/BED: D.4776 AUTHOR: ANA FARAH PHYSICIAN: REFERRING PHYSICIAN: SUSAN BAILEY MD DATE OF SERVICE: 03/20/21 Case Management Discharge Planning Summary COMMENTS ENTERED DATE: 03/20/21 13:38 CT COMMENT TYPE: Discharge Planning REVIEWER: Yanet Lamb CM met with patient to complete discharge planning assessment and offer availability of needed services. Patient states that she lives independently at home with her son prior to admission. Son (Erick Gaona present in room at time of DCP and verified that home environment is safe and has electricity and running water. Patient denies need for transportation and state that she has funds for services and medications if needed. PCP is Dr. Matthews and patient uses [facility]. CM offered and discussed home health, rehab services, and need for any medical equipment. Patient did not express need for offered services at this time. Patient does have an nebulizer currently. Equipment obtained from mail delivery. Transportation home will be provided b her son in law (Drake Barrera). Patient verbalized understanding of DCP and agrees with discharge. DCP REVIEW SUMMARY ANTICIPATED D/C DATE: 03/20/2021 EXPECTED LOS : 1 CASE STATUS: DCP Initiated INITIAL REVIEW: 03/19/2021 INITIAL REVIEWER: Yanet Lamb FINAL DISCHARGE DISPOSITION: 01 : Home or Self Care (Routine Discharge) FINAL REVIEWER: FINAL REVIEW DATE: DCP Focus Questions & Answers QUESTION: ANSWER : PATIENT: SEJAL GAONA ENCOUNTER: [id number] MEDICAL RECORD#: [id number] ADMISSION DATE: 03/19/2021 DISCHARGE DATE: 03/20/2021 ATTENDING MD: SUSAN SEQUEIRA : AGE: 50 MARITAL STATUS: W DC PLAN ID: [id number] FACILITY: [facility] PRINTED ON: 03/20/21 14:17 CT All edits/amendments must be made on the electronic document DICTATION DATE: 03/20/211416 LINE RIDER: FLAKITA 03/20/211416 RPT#: [id number] DC DATE:03/20/21 STATUS: DIS IN [facility] [address] [place] [address] END OF REPORT
--- NOTE | 2021-03-20 22:38 | MORECARE ---
CASE MANAGEMENT DISCHARGE SUMMARY PATIENT: SEJAL GAONA UNIT: [id number] ADM DATE: 03/19/21 AGE: 50 : 66 SEX: F ROOM/BED: D.4463 AUTHOR: ANA FARAH PHYSICIAN: REFERRING PHYSICIAN: SUSAN BAILEY MD DATE OF SERVICE: 03/20/21 Case Management Discharge Planning Summary COMMENTS ENTERED DATE: 03/20/21 13:38 CT COMMENT TYPE: Discharge Planning REVIEWER: Yanet Lamb CM met with patient to complete discharge planning assessment and offer availability of needed services. Patient states that she lives independently at home with her son prior to admission. Son (Erick Gaona present in room at time of DCP and verified that home environment is safe and has electricity and running water. Patient denies need for transportation and state that she has funds for services and medications if needed. PCP is Dr. Matthews and patient uses [facility]. CM offered and discussed home health, rehab services, and need for any medical equipment. Patient did not express need for offered services at this time. Patient does have an nebulizer currently. Equipment obtained from mail delivery. Transportation home will be provided b her son in law (Drake Barrera). Patient verbalized understanding of DCP and agrees with discharge. DCP REVIEW SUMMARY ANTICIPATED D/C DATE: 03/20/2021 EXPECTED LOS : 1 CASE STATUS: DCP Initiated INITIAL REVIEW: 03/19/2021 INITIAL REVIEWER: Yanet Lamb FINAL DISCHARGE DISPOSITION: 01 : Home or Self Care (Routine Discharge) FINAL REVIEWER: FINAL REVIEW DATE: DCP Focus Questions & Answers QUESTION: ANSWER : PATIENT: SEJAL GAONA ENCOUNTER: [id number] MEDICAL RECORD#: [id number] ADMISSION DATE: 03/19/2021 DISCHARGE DATE: 03/20/2021 ATTENDING MD: SUSAN SEQUEIRA : AGE: 50 MARITAL STATUS: W DC PLAN ID: [id number] FACILITY: [facility] PRINTED ON: 03/20/21 22:37 CT All edits/amendments must be made on the electronic document DICTATION DATE: 03/20/212236 HOSPITAL INTERN: FLAKITA 03/20/212236 RPT#: [id number] DC DATE:03/20/21 STATUS: DIS IN [facility] [address] [place] [address] END OF REPORT
== END 2021-03-20 14:09 | disposition home or self-care (01) | DRG 282 ==
LOC: D.ER 19:44 → D.M2 03-19 01:37 → OBSVTIME 03-19 01:37 → D.M2 03-19 14:38
PROVIDERS: Family Medicine; Internal Medicine Cardiovascular Disease; ADMIT Emergency Medicine; ATTEND Emergency Medicine
PROC: B2151ZZ Fluoroscopy of Left Heart using Low Osmolar Contrast (ICD-10-PCS; 2021-03-19)
PROC: 4A023N7 Measurement of Cardiac Sampling and Pressure, Left Heart, Percutaneous Approach (ICD-10-PCS; 2021-03-19)
PROC: B2111ZZ Fluoroscopy of Multiple Coronary Arteries using Low Osmolar Contrast (ICD-10-PCS; principal; 2021-03-19 10:46)
DX: I25.10 Atherosclerotic heart disease of native coronary artery without angina pectoris (principal); I21.A1 Myocardial infarction type 2; E11.9 Type 2 diabetes mellitus without complications; J44.9 Chronic obstructive pulmonary disease, unspecified; F17.200 Nicotine dependence, unspecified, uncomplicated; J45.909 Unspecified asthma, uncomplicated; F41.8 Other specified anxiety disorders; I11.0 Hypertensive heart disease with heart failure; I50.9 Heart failure, unspecified; Z85.3 Personal history of malignant neoplasm of breast

== ENCOUNTER 2021-04-08 10:35 | Emergency (ER) | payer OTHER ==
[~2021-04-08] VITALS: Ht 172.7 cm; Wt 100.0 kg
[~2021-04-08 10:35] MED LIST changes: +FEXOFENADINE HC60 MG PO; +RANEXA500 MG PO
[2021-04-08 10:44] VITALS: Ht 172.7 cm; Wt 100.0 kg
[2021-04-08 11:32] LABS: EOSINOPHILS 0.5 % (0-7); HEMATOCRIT 44.7 % (36.0-48.0); LYMPHOCYTES 13.6 % (15-50); MCH 31.8 pg (26.0-34.0); MCHC 33.5 g/dL (31.0-37.0); MCV 94.9 fL (80.0-100.0); MEAN PLATELET VOLUME 8.4 fL (7.4-10.4); NEUTROPHILS 78.9 % (40-80); RDW 15.4 % (11.5-14.5); WBC 16.4 10x3/uL (4.8-10.8)
[2021-04-08 11:35] LABS: PLATELET COUNT 190 10x3/uL (130-400)
[2021-04-08 11:46] LABS: CALC OSMOLALITY 284 mosm/kg (275-300); CARBON DIOXIDE 25.5 mmol/L (21.0-32.0); CHLORIDE - SERUM 102 mmol/L (98-107); CREATININE - SERUM 0.8 mg/dL (0.6-1.3); POTASSIUM - SERUM 4.5 mmol/L (3.5-5.1); SODIUM 136 mmol/L (136-145); UREA NITROGEN 21 mg/dL (7-18); eGFR NON AFRICAN AMERICAN 80 mL/min (90-120)
[2021-04-08 11:47] LABS: GLUCOSE 273 mg/dL (74-106)
[2021-04-08 12:01] LABS: ALBUMIN 3.1 g/dL (3.4-5.0); ALKALINE PHOSPHATASE 87 U/L (30-120); ALT (SGPT) 21 U/L (10-68); BILIRUBIN - TOTAL 0.38 mg/dL (0.2-1.3); CKMB 0.9 U/L (0.0-3.6); CREATINE KINASE 37 UL (21-215); PROTEIN - SERUM 6.8 g/dL (6.4-8.2); TROPONIN-I < 0.017 ng/mL (0.000-0.060)
[2021-04-08 12:07] LABS: APTT 30.4 SECONDS (22.8-39.4); INR 1.03 (0.85-1.17); PROTIME 12.4 SECONDS (11.6-15.0)
[2021-04-08] MEDS ORDERED: HYDROCODON-ACE1 EAC7 PO (14:55)
[2021-04-08] MEDS ORDERED: ZANAFLEX6 MG PO (14:55)
[2021-04-08 17:15] VITALS: BP 118/52
== END 2021-04-08 17:17 | disposition home or self-care (01) ==
LOC: D.ER 10:35
PROVIDERS: Emergency Medicine
DX: T16.1XXA Foreign body in right ear, initial encounter (principal); S16.1XXA Strain of muscle, fascia and tendon at neck level, initial encounter; W19.XXXA Unspecified fall, initial encounter; Y93.9 Activity, unspecified; Y92.9 Unspecified place or not applicable; E11.40 Type 2 diabetes mellitus with diabetic neuropathy, unspecified; I11.0 Hypertensive heart disease with heart failure; I50.9 Heart failure, unspecified; E78.5 Hyperlipidemia, unspecified; J44.9 Chronic obstructive pulmonary disease, unspecified; Z72.0 Tobacco use; Z79.4 Long term (current) use of insulin